=== PATIENT | male | born 1950 | race Caucasian/White ===

== ENCOUNTER 2017-06-16 14:26 | Observation (INO) | payer MEDICARE, OTHER ==
[~2017-06-16] VITALS: Ht 203.2 cm; Wt 119.6 kg
[~2017-06-16 14:26] MED LIST: ALBUTEROL2.5 MG/3 M INH; AMITRIPTYLINE100 MG PO; ATIVAN0.5 MG PO; BAYER CHEWABLE81 MG PO; BROVANA15 MCG/2 M INH; BUPROPION HCL100 M1 PO; BUSPAR5 MG PO; BUTRANS1 EAC1 TRANSDERM; CARDIZEM60 MG PO; CELEXA40 MG PO; CLEOCIN HCL150 MG PO; CYCLOBENZAPRINE10 MG PO; DEMEROL50 MG PO; DULCOLAX10 MG/SUPP RC; FIORICET TABLET1 TAB PO; FLEXERIL10 MG PO; GLUCOPHAGE1000 MG PO; HUMALOG 30100 UNITS/ SC; LANTUS INSULIN10 ML SC; LANTUS SOL100 UNIT/1 SC; LIPITOR20 MG PO; LISINOPRIL5 MG PO; MIRALAX17 GM PO; MORPHINE SULF5 MG/ML IV; MUCINEX600 MG PO; NAPROSYN500 MG PO; NOVOLOG100 U/M1 SC; PAMELOR 25 MG C25 MG PO; PLAVIX75 MG PO; PREDNISONE20 MG PO; PRILOSEC20 MG PO; PROTONIX40 MG PO; RESTORIL15 MG PO; ROXICODONE5 MG PO; SENOKOT-S TABLE1 TAB PO; TESSALON PERLE100 MG PO; VIMOVO PO; XANAX0.5 MG PO
[2017-06-16 16:02] LABS: BASOPHILS 0.1 % (0-2); EOSINOPHILS 0.9 % (0-7); HEMATOCRIT 35.1 % (42.0-54.0); HEMOGLOBIN 11.4 g/dL (13.5-17.5); IMMATURE GRANULOCYTES 0.2 % (0-5); LYMPHOCYTES 15.6 % (15-50); MCHC 32.5 g/dL (31.0-37.0); MCV 95.4 fL (80.0-100.0); MEAN PLATELET VOLUME 9.6 fL (7.4-10.4); MONOCYTES 9.1 % (2-11); NEUTROPHILS 74.1 % (40-80); PLATELET COUNT 246 10x3/uL (130-400); RBC 3.68 10x6/uL (4.20-6.10); RDW 13.6 % (11.5-14.5)
[2017-06-16 16:13] LABS: APTT 39.2 SECONDS (22.8-39.4); INR 1.02 (0.85-1.17); PROTIME 13.3 SECONDS (11.6-15.0)
[2017-06-16 16:17] LABS: ALBUMIN 3.4 g/dL (3.4-5.0); ANION GAP 11.7 mmol/L (8-16); BILIRUBIN - TOTAL 0.5 mg/dL (0.2-1.3); CARBON DIOXIDE 27.3 mmol/L (21.0-32.0); CREATININE - SERUM 1.6 mg/dL (0.6-1.3); PROTEIN - SERUM 6.9 g/dL (6.4-8.2)
[2017-06-16 17:56] LABS: APPEARANCE SLT CLOUDY (CLEAR); COLOR YELLOW (YELLOW)
[2017-06-16 17:57] LABS: BILIRUBIN NEGATIVE (NEGATIVE); GLUCOSE NEGATIVE (NEGATIVE); KETONE NEGATIVE (NEGATIVE); LEUKOCYTE ESTERASE TRACE (NEGATIVE); NITRITE NEGATIVE (NEGATIVE); PROTEIN TRACE mg/dL (NEGATIVE); UROBILINOGEN NORMAL (NORMAL)
[2017-06-16 17:58] LABS: RED CELLS - URINE RARE /hpf (0-5)
[2017-06-16 17:59] LABS: BACTERIA FEW /hpf (NONE SEEN); EPITHELIAL CELLS OCC /hpf (0-5)
[2017-06-16 20:00] VITALS: BP 118/57
--- NOTE | 2017-06-16 20:10 | NUR ---
REC FROM ER VIA WC. AMBULATED WITH CANE TO SIT ON BED. ALERT/ORIENTED X 4. DENIES PAIN OR ANY NEEDS. IV IN RT AC WITH NS INFUSING AT 150ML/HR. NEURO CHECK COMPLETED PER ORDER. ORIENTED TO ROOM AND CALL LIGHT FOR ANY NEEDS. PLACED BEDSIDE TABLE IN REACH.
[2017-06-16] MEDS ORDERED: MELATONIN10 M1 PO (22:34)
[2017-06-16] MEDS ORDERED: COLACE100 MG PO (22:48)
[2017-06-16] MEDS ORDERED: IMODIUM2 MG PO (22:50)
[2017-06-17] VITALS (7 sets, daily range): BP systolic 104–143; BP diastolic 45–70; Ht 203.2 cm; Wt 119.6 kg
--- NOTE | 2017-06-17 00:30 | NUR ---
REQUESTED ASSISTANCE TO BATHROOM TO VOID. NO OTHER NEEDS VOICED.
--- NOTE | 2017-06-17 04:30 | NUR ---
RESTING WITH EYES CLOSED. RR 18 EVEN U/L. CL IN REACH.
--- NOTE | 2017-06-17 07:38 | NUR ---
AM ROUNDS- PT IN BED, DENIES ANY NEEDS AT THIS TIME. INFORMED PT ABOUT NPO STATUS DO TO CTA SCHEDULED FOR TODAY. BED LOW AND WHEELS LOCKED, BEDSIDE RAILS X2, CALL LIGHT IN REACH, NAD NOTED, WILL CONTINUE TO MONITOR.
[2017-06-17 08:27] LABS: ANION GAP 13.5 mmol/L (8-16); BILIRUBIN - TOTAL 0.47 mg/dL (0.2-1.3); CALCIUM 8.5 mg/dL (8.5-10.1); CARBON DIOXIDE 24.9 mmol/L (21.0-32.0); CREATININE - SERUM 1.3 mg/dL (0.6-1.3); POTASSIUM - SERUM 4.4 mmol/L (3.5-5.1); PROTEIN - SERUM 6.3 g/dL (6.4-8.2)
[2017-06-17 08:45] LABS: HEMOGLOBIN 10.5 g/dL (13.5-17.5); MCH 31.2 pg (26.0-34.0); MCHC 32.8 g/dL (31.0-37.0); MEAN PLATELET VOLUME 10.1 fL (7.4-10.4); RBC 3.37 10x6/uL (4.20-6.10); RDW 13.6 % (11.5-14.5); WBC 13.6 10x3/uL (4.8-10.8)
--- NOTE | 2017-06-17 11:11 | NUR ---
PAGED LIANA UP, WAITING ON HER TO CALL BACK.
--- NOTE | 2017-06-17 19:10 | NUR ---
RECEIVED REPORT, ASSUMED CARE OF PATIENT. SITTING IN RECLINER. DENIES PAIN OR ANY NEEDS. IV IN R AC INTACT SL. TELEMETRY SHOWS 92 SR. REFUSES SCD'S ON. ORIENTED TO CL FOR ANY NEEDS.
--- NOTE | 2017-06-17 20:55 | NUR ---
ADMIN SCHED MEDS AND HOME MEDS. NO OTHER NEEDS VOICED.
--- NOTE | 2017-06-17 21:30 | NUR ---
AMBULATING IN HALLWAY WITH STEADY GAIT. ASKED DIRECTIONS TO [place].
[2017-06-18] VITALS: BP 125/65
[2017-06-18 06:17] LABS: BASOPHILS 0.3 % (0-2); EOSINOPHILS 3.6 % (0-7); HEMATOCRIT 32.3 % (42.0-54.0); HEMOGLOBIN 10.7 g/dL (13.5-17.5); IMMATURE GRANULOCYTES 0.3 % (0-5); LYMPHOCYTES 28.6 % (15-50); MCH 31.1 pg (26.0-34.0); MCHC 33.1 g/dL (31.0-37.0); MCV 93.9 fL (80.0-100.0); MEAN PLATELET VOLUME 9.7 fL (7.4-10.4); MONOCYTES 10.7 % (2-11); NEUTROPHILS 56.5 % (40-80); PLATELET COUNT 246 10x3/uL (130-400); RBC 3.44 10x6/uL (4.20-6.10); RDW 13.4 % (11.5-14.5)
[2017-06-18 06:18] LABS: ANION GAP 13.2 mmol/L (8-16); CALCIUM 8.9 mg/dL (8.5-10.1); CARBON DIOXIDE 26.4 mmol/L (21.0-32.0); CREATININE - SERUM 1.1 mg/dL (0.6-1.3); POTASSIUM - SERUM 4.6 mmol/L (3.5-5.1)
[2017-06-18 06:20] LABS: WBC 10.1 10x3/uL (4.8-10.8)
--- NOTE | 2017-06-18 07:20 | NUR ---
AM ROUNDS- PT UP TO CHAIR. DENIES ANY NEEDS AT THIS TIME. RESP EVEN AND UNLABORED, RT AC SL. CALL LIGHT IN REACH, NAD NOTED, WILL CONTINUE TO MONITOR.
[2017-06-18 08:00] VITALS: BP 114/61
--- NOTE | 2017-06-18 08:31 | NUR ---
AM MEDS GIVEN AT THIS TIME. PT UP TO CHAIR, DENIES ANY NEEDS AT THIS TIME. CALL LIGHT IN REACH, NAD NOTED, WILL CONTINUE TO MONITOR.
--- NOTE | 2017-06-18 11:45 | NUR ---
PT CHECKED OWN BLOOD SUGAR AND IT WAS 144, NO COVERAGE NEEDED PER S/S. PT UP TO CHAIR, DENIES ANY NEEDS AT THIS TIME. CALL LIGHT IN REACH, AT BEDSIDE, NAD NOTED, WILL CONTINUE TO MONITOR.
[2017-06-18 12:00] VITALS: BP 118/61
--- NOTE | 2017-06-18 16:00 | NUR ---
PROVIDED VERBAL AND WRITTEN D/C INSTRUCTIONS TO PT AND AT BEDSIDE. BOTH VERBALIZED UNDERSTANDING REGARING INSTRUCTIONS. D/C RT AC IV, TIP INTACT. PT WILL NOTIFY WHEN READY FOR WHEELCHAIR. NAD NOTED, WILL CONTINUE TO MONITOR.
--- NOTE | 2017-06-18 16:14 | NUR ---
PT LEFT UNIT VIA WHEELCHAIR, ACCOMPANIED BY , NAD NOTED.
== END 2017-06-18 16:11 | disposition home or self-care (01) ==
LOC: D.ER 14:26 → OBSVTIME 18:55 → D.M2 18:55
PROVIDERS: Internal Medicine Cardiovascular Disease; Physician Assistant Medical; ADMIT Family Medicine
DX: I65.23 Occlusion and stenosis of bilateral carotid arteries (principal); E11.9 Type 2 diabetes mellitus without complications; Z79.4 Long term (current) use of insulin; G47.33 Obstructive sleep apnea (adult) (pediatric); J44.9 Chronic obstructive pulmonary disease, unspecified; I10 Essential (primary) hypertension; Z86.73 Personal history of transient ischemic attack (TIA), and cerebral infarction without residual deficits; Z72.0 Tobacco use

== ENCOUNTER 2017-07-05 05:06 | Inpatient (IN) | payer MEDICARE, OTHER ==
[~2017-07-05] VITALS: Ht 203.2 cm; Wt 119.5 kg
[~2017-07-05 05:06] MED LIST changes: -BUTRANS1 EAC1 TRANSDERM; +BUTRANS1 EAC3 TRANSDERM; +CLARITIN 10 MG10 MG PO; +COLACE100 MG PO; +FLUTICASONE PRO16 GM NASAL; +IMODIUM2 MG PO; +IPRAT-ALBUT 0.5-3 ML UPD; +MELATONIN10 M1 PO; +MOVANTIK25 MG PO; +PENNSAID 2% TOPICAL; +SPIRIVA RESPIMAT4 G1 INH; +STOOL SOFTENER100 M1 PO; +TART CHERRY EXTRACT PO
[2017-07-05 11:32] VITALS: Ht 203.2 cm; Wt 119.5 kg
[2017-07-06] MEDS ORDERED: ULTRAM50 MG PO (11:51)
[2017-07-06 12:00] VITALS: BP 106/50
== END 2017-07-06 13:07 | disposition home health service (06) | DRG 38 ==
LOC: D.CVICU 05:06 → D.SDCHOLD 05:06 → D.CVICU 10:19
PROVIDERS: ADMIT Internal Medicine Cardiovascular Disease
PROC: 03UL0JZ Supplement Left Internal Carotid Artery with Synthetic Substitute, Open Approach (ICD-10-PCS; 2017-07-05)
PROC: 03CL0ZZ Extirpation of Matter from Left Internal Carotid Artery, Open Approach (ICD-10-PCS; principal; 2017-07-05 07:30)
DX: I65.23 Occlusion and stenosis of bilateral carotid arteries (principal); I69.354 Hemiplegia and hemiparesis following cerebral infarction affecting left non-dominant side; G47.33 Obstructive sleep apnea (adult) (pediatric); E11.9 Type 2 diabetes mellitus without complications; J44.9 Chronic obstructive pulmonary disease, unspecified; I10 Essential (primary) hypertension; K21.9 Gastro-esophageal reflux disease without esophagitis

== ENCOUNTER → 2017-11-08 09:56 | Outpatient (CLI) | payer MEDICARE, OTHER ==
[2017-07-05 11:32] VITALS: BMI 28.9
[~2017-11-08 09:56] MED LIST changes: +ULTRAM50 MG PO
== END | disposition home or self-care (01) ==
LOC: D.CT 09:56
DX: I73.9 Peripheral vascular disease, unspecified (principal)

== ENCOUNTER 2017-12-13 06:28 | Outpatient (CLI) | payer MEDICARE, OTHER ==
--- NOTE | ~2017-12-13 | HEMODYNAMI ---
PATIENT:DEANA DUCKWORTH MEDICAL RECORD: [id number] : 48 LOCATION:[facility] ADMISSION DATE: 12/13/17 Generatedon:12/13/201711:27 Patient name: DEANA DUCKWORTH Patient #: [id number] SSN: : 1950 Date of study: 12/13/2017 Page: Of Hemodynamic Procedure Report Patient Data Patient Demographics Procedure consent was obtained First Name: DEANA Gender: Male Last Name: DONITA : 1950 [facility] Initial: YA Age: 67 year(s) Patient #: [id number] Race: Additional ID: [id number] Contact details [address]: [address] [place] [address] State: [place] City: [place] Zip code: [address] Past Medical History History of disease Date Diagnosis Comments CAD Allergies Allergen Reaction Date Comments Reported Penicillins 07/30/2015 Other allergy 07/30/2015 hydromorphone Other allergy 10/15/2016 dilaudid,pcn,baclofen Admission Admission Data Admission Date: 12/13/2017 Admission Time: 6:28 Procedure Procedure Types Cath Procedure Peripheral Cath Diagnostic Procedure Cath Peripheral Abd/Extremity Extremities Bilat Lower Extremity Procedure Description Procedure Date Procedure Date: 12/13/2017 Procedure Start Time: 10:30 Procedure Staff Name Function Walter Szymanski MD Performing Physician Mimi Mancilla RT Rotor Casting Machine Operator Mimi Mancilla RT Monitor Alessandra Ahn RN Nurse Tanner Orellana Nurse Corey Rodriguez RT Scrub Procedure Data Cath Procedure Fluoroscopy Diagnostic fluoroscopy Total fluoroscopy Time: 5.9 time: 5.9 min min Diagnostic fluoroscopy Total fluoroscopy dose: 878 dose: 878 mGy mGy Contrast Material Contrast Material Type Amount (ml) Isovue 300 75 Entry Location Entry Primary Successful Side Size Upsize Upsize Entry Closure Succes sful Closure Location (Fr) 1 (Fr) 2 (Fr) Remarks Device Remarks Femoral Right 5 Fr artery Diagnostic catheters Device Type Used For End Catheter Placement Merit ULTRA BOLUS FLUSH 5Fr 65CM catheter ([id number]) Procedure Medications Medication Administration Route Dosage Fentanyl I.V. 50 mcg Versed I.V. 1 mg Fentanyl I.V. 50 mcg Versed I.V. 1 mg Versed I.V. 1 mg Fentanyl I.V. 50 mcg Versed I.V. 1 mg Fentanyl I.V. 50 mcg Nitroglycerin IC/IA I.A. 200 mcg Hemodynamics Rest Heart Rate: 89 (bpm) Pressure Samples Time Site Value (mmHg) Purpose Heart Use Rate(bpm) 10:59 LCF 87/46(64) Snapshot 90 11:00 AO 133/46(76) Snapshot 89 11:00 AO 131/47(77) Snapshot 91 11:01 AO 134/48(80) Snapshot 92 Snapshots Pre Cath Intra NCS Post Cath Vital Signs Time Heart Resp SPO2 etCO2 NIBP (mmHg) Rhythm Pain Sedation Rate (ipm) (%) (mmHg) Status Level (bpm) 10:20:34 88 20 100 29.5 151/74(107) NSR 0 (11) 10(A) , No pain 10:24:54 91 16 100 32.5 158/74(105) NSR 0 (11) 10(A) , No pain 10:29:12 88 17 100 39.3 153/70(99) NSR 0 (11) 8(A) , No pain 10:33:31 89 21 99 36.3 157/71(107) NSR 0 (11) 8(A) , No pain 10:37:53 86 12 99 35.5 164/76(119) NSR 0 (11) 8(A) , No pain 10:42:15 85 12 98 41.6 143/67(106) NSR 0 (11) 8(A) , No pain 10:46:35 86 12 99 37.8 144/64(99) NSR 0 (11) 8(A) , No pain 10:50:55 88 13 99 28 141/63(91) NSR 0 (11) 8(A) , No pain 10:55:11 88 11 98 28.7 137/67(94) NSR 0 (11) 8(A) , No pain 10:59:29 91 11 97 31.7 135/63(80) NSR 0 (11) 8(A) , No pain 11:03:48 90 11 98 27.9 147/61(90) NSR 0 (11) 8(A) , No pain 11:08:03 87 12 97 25.7 137/70(104) NSR 0 (11) 8(A) , No pain 11:12:19 91 13 99 18.9 135/57(81) NSR 0 (11) 8(A) , No pain 11:16:37 91 12 97 25.7 132/58(75) NSR 0 (11) 8(A) , No pain 11:20:54 90 10 97 32.5 131/62(90) NSR 0 (11) 8(A) , No pain 11:25:10 89 11 98 20.4 135/61(99) NSR 0 (11) 8(A) , No pain Medications Time Medication Route Dose Verified Delivered Reason Notes Effective ness by by 10:24:35 Fentanyl I.V. 50 Walter Alessandra for mcg Jimy Szymanski RN sedation 10:24:45 Versed I.V. 1 mg Walter Aparicio for Jimy Szymanski RN sedation 10:41:46 Fentanyl I.V. 50 Walter Alessandra for mcg Jimy Szymanski RN sedation 10:41:53 Versed I.V. 1 mg Walter Alessandra for Jimy Szymanski RN sedation 10:50:58 Versed I.V. 1 mg Walter Alessandra for Jimy Szymanski RN sedation 10:51:07 Fentanyl I.V. 50 Walter Alessandra for Jimy Ken RN sedation 11:09:13 Versed I.V. 1 mg Walter Aparicio for Jimy Szymanski RN sedation 11:09:20 Fentanyl I.V. 50 Walter Alessandra for mcg Jimy Szymanski RN sedation 11:12:00 Nitroglycerin I.A. 200 Walter Walter IC/IA Stephon Ken MD MD Procedure Log Time Note 8:35:05 Use device set IR Diagnostic 9:01:21 Time tracking: Regular hours 9:24:45 Plan of Care:Hemodynamics will remain stable., Cardiac rhythm will remain stable., Comfort level will be maintained., Respiratory function will remain adequate., Patient/ family verbilizes understanding of procedure., Procedure tolerated without complication., Recovers from procedure without complications.. 9:24:52 Patient received from Outpatients to IR Alert and oriented. Tansferred to table in Supine position. 9:25:03 Signed procedure consent form obtained from patient. 9:25:17 H&P Date Dictated: 12/13/2017 Within 30 days and on chart.. 9:25:20 Pre-procedure instructions explained to patient. 9:25:21 Pre-op teaching completed and patient verbalized understanding. 9:25:23 Family in waiting room. 9:25:26 Patient NPO since Midnight. 9:26:01 Is the patient allergic to Iodine/contrast media? No. 9:26:03 Is patient on blood thinner?Yes 9:26:09 ACC The patient was administered the following blood thiners within the last 24 hours: ACCAspirin, ACCPlavix 9:26:12 Patient diabetic? Yes. 9:26:14 If diabetic: On Metformin? Yes 9:26:37 If on Metformin: Last Dose? 12/12/2017 9:26:41 - 9:26:44 ----Pre-sedation anethsthesia assessment.---- 9:26:46 Previous problem with sedation/anesthesia? No ? 9:26:49 Snore? Yes 9:26:51 Sleep apnea? No 9:26:53 Deviated septum? No 9:26:55 Opens mouth fully? Yes 9:26:57 Sticks out tongue? Yes 9:27:02 Airway obstruction? Yes asthma 9:27:11 Dentures? Yes in secure 9:27:13 - 9:27:19 Pre procedure: right dorsailis pedis pulse Doppler 9:27:24 Pre procedure: left dorsailis pedis pulse Doppler 9::28 Pre procedure: right posterior tibial pulse Doppler 9::32 Pre procedure: left posterior tibial pulse Doppler 10::22 ECG and BP/O2 sat monitors applied to patient. 10::23 Vital chart was started 10::35 Full Disclosure recording started 10::35 - 10::05 Physician arrived 10::56 Baseline sample Acquired. 10:23:00 - 10:23:07 --------ALL STOP TIME OUT------ 10::08 Final Timeout: patient, procedure, and site verified with staff and physician. All members of the team are in agreement. 10:23:36 Sedation plan: IV Moderate Sedation Medication:Versed, Fentanyl 10:23:42 Procedure started. 10:24:35 Fentanyl 50 mcg I.V. was administered by Alessandra Ahn RN; for sedation ; 10::45 Versed 1 mg I.V. was administered by Alessandra Ahn RN; for sedation; 10:27:01 STOPCOCK 3-Way Large Bore ([id number]) opened to sterile field. 10:27:02 TUBING Contrast Injection High Pressure ([id number]) opened to sterile field. 10:27:04 CHOICE PT Extra Support J 300cm guide wire ([id number]) opened to steril e field. 10:27:05 SHEATH 5FR [place] (LSQ129) opened to sterile field. 10:27:06 DOC .035 wire (Y53408) opened to sterile field. 10:27:07 SHEATH 6FR Destination (RSR01) opened to sterile field. 10:27:08 Micropuncture VSI 4FR kit opened to sterile field. 10:27:09 GARG 260 wire (N49212) opened to sterile field. 10:27:11 Sterile Angiographic Pack opened to sterile field. 10:27:13 Bag Decanter (2002S) opened to sterile field. 10:27:14 ACIST Manifold (18686) opened to sterile field. 10:27:15 ACIST Hand Control (29973) opened to sterile field. 10:27:16 ACIST Syringe (48789) opened to sterile field. 10:27:19 A [employer] ULTRA BOLUS FLUSH 5Fr 65CM catheter ([id number]) was advanced over the wire and used for . 10:30:40 Local anesthetic to right femoral artery with Lidocaine 1% by Walter Szymanski MD.INITIAL ACCESS ONLY 10:30:43 Arterial access obtained using ultrasound guidance. 10:30:56 A 5 Fr sheath was inserted into the Right Femoral artery 10:41:46 Fentanyl 50 mcg I.V. was administered by Alessandra Ahn RN; for sedation ; 10:41:53 Versed 1 mg I.V. was administered by Alessandra Ahn RN; for sedation; 10:43:48 GLIDE WIRE ANGLE 180cm (WG0760) opened to sterile field. 10:43:49 TORQUE DEVICE PLASTIC .038 ( TD01) opened to sterile field. 10:50:56 GLIDE WIRE ANGLE 260cm (BC5321) opened to sterile field. 10:50:58 Versed 1 mg I.V. was administered by Alessandra Ahn RN; for sedation; 10:51:07 Fentanyl 50 mcg I.V. was administered by Alessandra Ahn RN; for sedation ; 10:51:56 GLIDE CATHETER 5FR ANGLED 100cm (CG508) opened to sterile field. 10:58:54 Zero performed for pressure channel P1 10:59:24 Zero performed for pressure channel P1 10:59:38 Zero performed for pressure channel P1 11:09:13 Versed 1 mg I.V. was administered by Alessandra Ahn RN; for sedation; 11:09:20 Fentanyl 50 mcg I.V. was administered by Alessandra Ahn RN; for sedation ; 11:12:00 Nitroglycerin IC/IA 200 mcg I.A. was administered by Walter Szymanski MD; ; 11:16:03 EXOSEAL 5Fr (EX500) opened to sterile field. 11:20:46 Procedure ended.(Physican Out) 11:22:22 Fluoroscopy time 05.90 minutes. 11:22:28 Fluoroscopy dose: 878 mGy 11:22:28 Flurop Dose total: 878 11:22:33 Contrast amount:Isovue 300 75ml. 11:23:04 Procedure and supply charges have been captured, reviewed, submitted an d are correct. 11:27:26 Vital chart was stopped Device Usage Item Name Manufacture Quantity Catalog Number Hospital Part Current Va nimal Lot# / Charge Number Stock Stock Serial# Code STOPCOCK 3-Way [employer] 1 [id number] 3620 [id number] 5 [id number] Large Bore ([id number]) TUBING Merit 1 [id number] 447881 233687 936175 5 Contrast Medical Injection High Pressure (QEU249E) CHOICE PT [place] 1 [id number] 398411 122516 426041 5 Extra Support Scientific J 300cm guide wire ([id number]) SHEATH 5FR Terumo 1 PIR825 199649 614663 630445 40 [place] (QSM286) DOC .035 wire [employer] 1 G64366 231283 548889 5 [id number] (G00777) SHEATH 6FR Terumo 1 RSR01 640469 32115 523602 5 Destination (RSR01) Micropuncture VSI VASCULAR 1 7266V 801696 594882 5 VSI 4FR kit SOLUTIONS GARG 260 wire [employer] 1 F46731 628529 770542 5 7710780 (Y30994) Sterile Cardinal 1 [id number] 363853 994375 5 Angiographic Health Pack Bag Decanter Microtek 1 634732 07152 917493 5 () Medical Inc. ACIST Manifold Acist 1 46939 935909 529845 111161 5 (06479) Medical Systems Inc ACIST Hand Acist 1 22804 888414 164891 756084 5 Control Medical (59907) Systems Inc ACIST Syringe Acist 1 34800 342545 324700 648912 20 (60193) Medical Systems Inc Merit ULTRA Merit 1 [id number] 287590 791647 5 BOLUS FLUSH Medical 5Fr 65CM catheter ([id number]) GLIDE WIRE Terumo 1 HY2480 399279 839436 967840 5 ANGLE 180cm (MO5431) TORQUE DEVICE [place] 1 TD01 789479 341654 468196 5 PLASTIC .038 ( Scientific TD01) GLIDE WIRE Terumo 1 GN0049 442450 413874 359312 5 ANGLE 260cm (EM4197) GLIDE CATHETER Terumo 1 CG508 250823 36910 954754 4 5FR ANGLED 100cm (CG508) EXOSEAL 5Fr Cardinal 1 EX500 532579 912446 086104 10 [id number] (EX500) Health Signature Audit [place] Stage Time Signature Unsigned Intra-Procedure 12/13/2017 Mimi Mancilla 11:27:23 AM RT(R) Signatures Monitor : Mimi Mancilla RT Signature : Date : Time : [address] [address]
[2017-12-13 08:33] VITALS: BP 134/64; BMI 29.7
[2017-12-13 08:36] LABS: APTT 22.8 SECONDS (22.8-39.4); PROTIME 12.8 SECONDS (11.6-15.0)
[2017-12-13 08:37] LABS: ANION GAP 12.9 mmol/L (8-16); CALCIUM 9.1 mg/dL (8.5-10.1); CREATININE - SERUM 1.5 mg/dL (0.6-1.3); POTASSIUM - SERUM 4.9 mmol/L (3.5-5.1)
[2017-12-13 08:40] LABS: BASOPHILS 0.2 % (0-2); EOSINOPHILS 0.9 % (0-7); HEMATOCRIT 34.1 % (42.0-54.0); HEMOGLOBIN 10.9 g/dL (13.5-17.5); IMMATURE GRANULOCYTES 0.2 % (0-5); LYMPHOCYTES 23.8 % (15-50); MCH 30.1 pg (26.0-34.0); MCV 94.2 fL (80.0-100.0); MEAN PLATELET VOLUME 9.6 fL (7.4-10.4); MONOCYTES 8.7 % (2-11); NEUTROPHILS 66.2 % (40-80); PLATELET COUNT 275 10x3/uL (130-400); RBC 3.62 10x6/uL (4.20-6.10); RDW 13.4 % (11.5-14.5); WBC 9.5 10x3/uL (4.8-10.8)
== END 2017-12-13 14:45 | disposition home or self-care (01) ==
LOC: D.OPS 06:28 → D.RAD 09:00 → D.OPS 09:00
PROVIDERS: General Practice
DX: I70.212 Atherosclerosis of native arteries of extremities with intermittent claudication, left leg (principal); N28.9 Disorder of kidney and ureter, unspecified; Z01.812 Encounter for preprocedural laboratory examination

== ENCOUNTER 2017-12-21 08:48 | Outpatient (CLI) | payer MEDICARE, OTHER ==
[~2017-12-21] VITALS: Ht 203.2 cm; Wt 120.5 kg
--- NOTE | ~2017-12-21 | HEMODYNAMI ---
PATIENT:DEANA DUCKWORTH MEDICAL RECORD: [id number] : 48 LOCATION:[facility] ADMISSION DATE: 12/21/17 Generatedon:12/21/201713:07 Patient name: DEANA DUCKWORTH Patient #: [id number] SSN: : 1950 Date of study: 12/21/2017 Page: Of Hemodynamic Procedure Report Patient Data Patient Demographics Procedure consent was obtained First Name: DEANA Gender: Male Last Name: DONITA : 1950 [facility] Initial: YA Age: 67 year(s) Patient #: [id number] Race: Additional ID: [id number] Contact details [address]: [address] [place] [address] State: [place] City: [place] Zip code: [address] Past Medical History History of disease Date Diagnosis Comments CAD Allergies Allergen Reaction Date Comments Reported Penicillins 07/30/2015 Other allergy 07/30/2015 hydromorphone Other allergy 10/15/2016 dilaudid,pcn,baclofen Admission Admission Data Admission Date: 12/21/2017 Admission Time: 8:48 Procedure Procedure Types Cath Procedure Peripheral Cath Diagnostic Procedure Abd/Extremity Aortagram Procedure Description Procedure Date Procedure Date: 12/21/2017 Procedure Start Time: 11:40 Procedure Staff Name Function Walter Szymanski MD Performing Physician Corey Rodriguez RT Monitor Aisha Armas RT Scrub Jimy Aparicio RN Nurse Tanner Orellana Nurse Procedure Data Cath Procedure Fluoroscopy Diagnostic fluoroscopy Total fluoroscopy Time: 5.6 time: 5.6 min min Diagnostic fluoroscopy Total fluoroscopy dose: 905 dose: 905 mGy mGy Contrast Material Contrast Material Type Amount (ml) Isovue 300 90 Entry Location Entry Primary Successful Side Size Upsize Upsize Entry Closure Succes sful Closure Location (Fr) 1 (Fr) 2 (Fr) Remarks Device Remarks Femoral Left 5 Fr 7 Fr Exoseal artery Short Femoral Right 7 Fr Exoseal artery Short Procedure Medications Medication Administration Route Dosage Fentanyl I.V. 50 mcg Versed I.V. 1 mg Fentanyl I.V. 50 mcg Versed I.V. 1 mg Versed I.V. 1 mg Fentanyl I.V. 50 mcg Versed I.V. 1 mg Fentanyl I.V. 50 mcg Heparin Bolus I.V. 5000 units Versed I.V. 1 mg Fentanyl I.V. 50 mcg Versed I.V. 1 mg Fentanyl I.V. 50 mcg Hemodynamics Rest Heart Rate: 87 (bpm) Snapshots Pre Cath Intra NCS Post Cath Vital Signs Time Heart Resp SPO2 etCO2 NIBP (mmHg) Rhythm Pain Status Sedation Rate (ipm) (%) (mmHg) Level (bpm) 11:13:07 87 13 98 34.7 139/71(107) NSR 2 (11) , 10(A) Uncomfortable 11:17:28 87 13 98 28.7 142/73(100) NSR 2 (11) , 10(A) Uncomfortable 11:21:49 84 12 98 27.9 139/69(108) NSR 2 (11) , 10(A) Uncomfortable 11:26:10 84 14 98 37.8 143/73(100) NSR 2 (11) , 10(A) Uncomfortable 11:30:30 84 13 98 17.3 146/72(104) NSR 2 (11) , 10(A) Uncomfortable 11:34:50 83 13 98 24.9 142/72(109) NSR 2 (11) , 10(A) Uncomfortable 11:39:06 83 13 99 42.3 146/75(105) NSR 1 (11) , Very 10(A) mild 11:43:26 82 14 98 38.5 134/67(100) NSR 1 (11) , Very 10(A) mild 11:47:44 81 13 98 38.5 140/63(103) NSR 1 (11) , Very 8(A) mild 11:52:00 83 13 96 15.8 134/75(95) NSR 0 (11) , No 8(A) pain 11:56:18 82 10 95 39.3 138/67(100) NSR 0 (11) , No 8(A) pain 12:00:34 82 12 97 18.1 144/67(99) NSR 0 (11) , No 8(A) pain 12:04:56 81 16 98 38.5 134/59(92) NSR 0 (11) , No 8(A) pain 12:09:16 80 11 96 25.7 131/60(86) NSR 0 (11) , No 8(A) pain 12:13:34 80 10 97 0 131/64(93) NSR 0 (11) , No 8(A) pain 12:17:52 79 10 98 10.5 144/63(97) NSR 0 (11) , No 8(A) pain 12:22:08 79 10 97 24.9 123/63(87) NSR 0 (11) , No 8(A) pain 12:26:24 80 10 98 38.5 118/63(72) NSR 0 (11) , No 8(A) pain 12:30:36 79 12 96 25.6 126/64(104) NSR 0 (11) , No 8(A) pain 12:34:54 81 11 95 18.1 139/59(100) NSR 0 (11) , No 8(A) pain 12:39:53 82 13 94 27.2 Measuring NSR 0 (11) , No 8(A) pain 12:40:02 82 13 92 30.9 130/71(91) NSR 0 (11) , No 8(A) pain 12:44:14 81 12 92 31.7 135/63(93) NSR 0 (11) , No 8(A) pain 12:48:29 80 10 98 12 131/64(96) NSR 0 (11) , No 8(A) pain 12:52:39 81 11 98 8.3 137/84(100) NSR 0 (11) , No 8(A) pain 12:56:55 80 11 96 21.1 143/73(104) NSR 0 (11) , No 8(A) pain 13:01:13 78 13 98 40.8 136/61(99) NSR 0 (11) , No 8(A) pain 13:05:34 78 11 95 39.2 129/65(97) NSR 0 (11) , No 8(A) pain Medications Time Medication Route Dose Verified Delivered Reason Notes Effectiv eness by by 11:38:52 Fentanyl I.V. 50 Walter Jimy for mcg Burda, Alessandra RN sedation MD 11:39:03 Versed I.V. 1 mg Walter Jimy for awake Burda, Alessandra RN sedation alert, MD supine on table. sedation begun 11:45:18 Fentanyl I.V. 50 Walter Jimy for mcg Burda, Alessandra RN sedation MD 11:45:31 Versed I.V. 1 mg Walter Jimy for eyes Burda, Alessandra RN sedation closed MD 11:50:03 Versed I.V. 1 mg Walter Jimy for Burda, Alessandra RN sedation MD 11:50:18 Fentanyl I.V. 50 Walter Jimy for mcg Burda, Alessandra RN sedation MD 12:06:29 Versed I.V. 1 mg Walter Jimy for Burda, Alessandra RN sedation 12:06:37 Fentanyl I.V. 50 Walter Jimy for mcg Burda, Alessandra RN sedation MD 12:27:14 Heparin I.V. 5000 Walter Jimy used for Bolus units Burda, Alessandra human resources assistant 12:28:44 Versed I.V. 1 mg Walter Jimy for Burda, Alessandra RN sedation 12:28:53 Fentanyl I.V. 50 Walter Jimy for mcg Burda, Alessandra RN sedation 12:50:02 Versed I.V. 1 mg Walter Jimy for Burda, Alessandra RN sedation 12:50:13 Fentanyl I.V. 50 Walter Jimy for mcg Burda, Alessandra RN sedation Procedure Log Time Note 10:41:36 Corey Rodriguez RT (R) (CV) sent for patient. Start room use. 10:41:47 Time tracking: Regular hours 10:41:54 Plan of Care:Hemodynamics will remain stable., Cardiac rhythm will remain stable., Comfort level will be maintained., Respiratory function will remain adequate., Patient/ family verbilizes understanding of procedure., Procedure tolerated without complication., Recovers from procedure without complications.. 10:41:57 Use device set IR Diagnostic 10:41:59 Sterile Angiographic Pack opened to sterile field. 10:41:59 ACIST Manifold (55518) opened to sterile field. 10:42:00 Bag Decanter (2001S) opened to sterile field. 10:42:01 ACIST Syringe (35910) opened to sterile field. 10:42:02 ACIST Hand Control (47983) opened to sterile field. 10:42:10 Patient received from Outpatients to IR Alert and oriented. Tansferred to table in Supine position. 10:42:11 Correct patient and procedure confirmed by team. 10:42:13 Signed procedure consent form obtained from patient. 10:42:14 ECG and BP/O2 sat monitors applied to patient. 10:42:15 Full Disclosure recording started 10:42:16 - 10:42:19 H&P Date Dictated: 12/21/2017 H&P Addendum completed by physician on day of procedure. (MUST COMPLETE FOR ALL OUTPATIENTS). 10:42:20 Pre-procedure instructions explained to patient. 10:42:20 Pre-op teaching completed and patient verbalized understanding. 10:42:25 Family in waiting room. 10:42:30 Patient NPO since Midnight. 10:42:43 Is the patient allergic to Iodine/contrast media? No. 10:42:52 Is patient on blood thinner?Yes 10:42:57 ACC The patient was administered the following blood thiners within the last 24 hours: ACCAspirin, ACCPlavix 10:42:59 Patient diabetic? Yes. 10:43:00 If diabetic: On Metformin? No 10:43:01 - 10:43:02 ----Pre-sedation anethsthesia assessment.---- 10:43:10 Previous problem with sedation/anesthesia? No ? 10:43:11 Snore? Yes 10:43:13 Sleep apnea? No 10:43:15 Deviated septum? No 10:43:16 Opens mouth fully? Yes 10:43:17 Sticks out tongue? Yes 10:43:25 Airway obstruction? Yes asthma 10:43:37 Dentures? Yes in 10:43:41 Pre procedure: right dorsailis pedis pulse Doppler 10:43:44 Pre procedure: left dorsailis pedis pulse Doppler 10:43:47 Pre procedure: right posterior tibial pulse Doppler 10:43:56 Pre procedure: left posterior tibial pulse Doppler 10:44:00 Patient pain scale 5/10 ?. 10:44:10 IV patent on arrival in right hand with 0.9% NaCl at [facility]. 10:44:17 Bilateral groins area was prepped with chlora-prep and draped in steril e fashion 10:44:20 Sharps counted by scrub and verified by R.N. 10:44:22 Alarms reviewed by R. N. 11:11:57 Vital chart was started 11:11:58 Baseline sample Acquired. 11:37:12 Physician arrived 11:37:13 --------ALL STOP TIME OUT------ 11:37:13 Final Timeout: patient, procedure, and site verified with staff and physician. All members of the team are in agreement. 11:37:16 Bilateral groins site verified by team. 11:37:20 Sedation plan: IV Moderate Sedation Medication:Versed, Fentanyl 11:38:52 Fentanyl 50 mcg I.V. was administered by Jimy Aparicio RN; for sedation ; 11:39:03 Versed 1 mg I.V. was administered by Jimy Aparicio RN; for sedation; awake alert, supine on table. sedation begun 11:40:06 Procedure started. 11:40:15 Local anesthetic to left femerol artery with Lidocaine 1% by Walter Szymanski MD.INITIAL ACCESS ONLY 11:40:26 DOC .035 wire (B84269) opened to sterile field. 11:40:26 TUBING Contrast Injection High Pressure (PHR097X) opened to sterile field. 11:40:27 Micropuncture VSI 4FR kit opened to sterile field. 11:40:28 SHEATH 5FR Trego (HTK010) opened to sterile field. 11:40:47 A 5 Fr sheath was inserted into the Left Femoral artery 11:42:10 GARG 260 wire (T90678) opened to sterile field. 11:42:10 GARG 260 wire (Y92695) opened to sterile field. 11:45:18 Fentanyl 50 mcg I.V. was administered by Jimy Aparicio RN; for sedation ; 11:45:31 Versed 1 mg I.V. was administered by Jimy Aparicio RN; for sedation; eyes closed 11:48:57 Angiodynamics Omniflush 5Fr 65cm (88454183) opened to sterile field. 11:50:03 Versed 1 mg I.V. was administered by Jimy Aparicio RN; for sedation; 11:50:18 Fentanyl 50 mcg I.V. was administered by Jimy Aparicio RN; for sedation ; 11:59:37 Cordis 7Fr BRITE TIP 11cm sheath opened to sterile field. 11:59:37 Cordis 7Fr BRITE TIP 11cm sheath opened to sterile field. 11:59:49 Sheath upsized to a 7 Fr Short. 12:03:48 GLIDE CATHETER 5FR ANGLED 65cm (CG507) opened to sterile field. 12:06:29 Versed 1 mg I.V. was administered by Jimy Aparicio RN; for sedation; 12:06:30 Local anesthetic to right femoral artery with Lidocaine 1% by Walter Szymanski MD.ADDITIONAL ACCESS 12:06:37 Fentanyl 50 mcg I.V. was administered by Jimy Aparicio RN; for sedation ; 12:06:42 A 7 Fr Short sheath was inserted into the Right Femoral artery 12:24:09 SMART 12 X 40 X 80 stent ([id number]) was deployed across Undefined1 . 12:25:56 SMART 12 X 40 X 80 stent ([id number]) was deployed across Undefined1 . 12:27:14 Heparin Bolus 5000 units I.V. was administered by Jimy Aparicio RN; use d for procedure; 12:28:44 Versed 1 mg I.V. was administered by Jimy Aparicio RN; for sedation; 12:28:53 Fentanyl 50 mcg I.V. was administered by Jimy Aparicio RN; for sedation ; 12:37:33 Inflation number: 1 A POWERFLEX PRO 8.0 x 40 x 80cm balloon ([id number]) was prepped and advanced across the Undefined1, then inflated 12:37:38 Inflation number: 2 A POWERFLEX PRO 8.0 x 40 x 80cm balloon ([id number]) was prepped and advanced across the Undefined1, then inflated 12:38:36 INFLATOR BasixTOUCH (TC4857) opened to sterile field. 12:38:36 INFLATOR BasixTOUCH (LP2265) opened to sterile field. 12:47:08 EXOSEAL 7Fr (EX700) opened to sterile field. 12:47:09 EXOSEAL 7Fr (EX700) opened to sterile field. 12:47:30 Sheath removed intact; hemostasis achieved with Exoseal to the Right Femoral artery. 12:47:36 Sheath removed intact; hemostasis achieved with Exoseal to the Left Femoral artery. 12:50:02 Versed 1 mg I.V. was administered by Jimy Aparicio RN; for sedation; 12:50:13 Fentanyl 50 mcg I.V. was administered by Jimy Aparicio RN; for sedation ; 12:52:52 Procedure ended.(Physican Out) 12:53:22 Fluoroscopy time 05.60 minutes. 12:53:27 Fluoroscopy dose: 905 mGy 12:53:27 Flurop Dose total: 905 12:57:37 Sharps counted by scrub and verified by R.N. 12:57:38 Insertion/operative site no bleeding no hematoma. 12:57:44 Post-op/insertion site Right Femoral artery dressed using a 4 x 4 and Tegaderm. 12:57:48 Post-op/insertion site Left Femoral artery dressed using a 4 x 4 and Tegaderm. 12:57:52 Post right femoral artery:stable 12:57:56 Post left femerol artery:stable 12:58:50 Post procedure: right posterior tibial pulse Doppler. 12:58:57 Post procedure instruction explained to patient.Patient verbalizes understanding. 12:59:17 Post procedure: left posterior tibial pulse 1+ Palpable, but thready & weak; easily obliterated. 12:59:34 Post procedure: right dorsailis pedis pulse 1+ Palpable, but thready & weak; easily obliterated. 12:59:39 Post procedure: left dorsailis pedis pulse 1+ Palpable, but thready & weak; easily obliterated. 12:59:41 Procedure and supply charges have been captured, reviewed, submitted an d are correct. 13:00:04 Contrast amount:Isovue 300 90ml. 13:06:46 Report given to Outpatients. 13:06:52 Patient transfered to Outpatients with Stretcher. 13:07:28 Vital chart was stopped Intervention Summary Intervention Notes Time ActionType Lesion and Equipment Action# Pressure Duration Attributes Used 12:24:09 Deploy self Undefined1 SMART 12 X 1 expanding 40 X 80 stent stent ([id number]) 12:25:56 Deploy self Undefined1 SMART 12 X 1 expanding 40 X 80 stent stent ([id number]) 12:37:33 Inflate Undefined1 POWERFLEX 1 0 00:00 balloon PRO 8.0 x 40 x 80cm balloon ([id number]) 12:37:38 Inflate Undefined1 POWERFLEX 2 0 00:00 balloon PRO 8.0 x 40 x 80cm balloon ([id number]) Device Usage Item Name Manufacture Quantity Catalog Hospital Part Current Minim al Lot# / Number Charge Number Stock Stock Serial# Code Sterile Cardinal 1 [id number] 996257 942280 5 Angiographic Health Pack ACIST Acist Medical 1 42047 430242 070902 760862 5 Manifold Systems Inc (70251) Bag Decanter Microtek 1 2001S 255050 38333 960450 5 (2001S) Medical Inc. ACIST Syringe Acist Medical 1 23724 072588 500399 056222 20 (36510) Systems Inc ACIST Hand Acist Medical 1 01301 623728 973726 354631 5 Control Systems Inc (15094) DOC .035 wire Cook Medical 1 W67169 634657 072605 5 0984658 (Q12688) TUBING [facility] 1 [id number] 769154 674081 376144 5 Contrast Injection High Pressure (VZO811X) Micropuncture VSI VASCULAR 1 7266V 463515 586181 5 VSI 4FR kit SOLUTIONS SHEATH 5FR Terumo 1 BLK133 368065 373073 437292 40 Trego (RZV782) GARG 260 [employer] 2 Q93065 132929 537432 5 0264113 wire (I45406) 1937009 Angiodynamics Angiodynamics 1 36479269 119933 902154 733906 5 Omniflush 5Fr 65cm ([id number]) Cordis 7Fr Cardinal 2 690225Q 393105 515390 5 BRITE TIP Health 11cm sheath GLIDE Terumo 1 CG507 259113 035811 5 CATHETER 5FR ANGLED 65cm (CG507) SMART 12 X 40 Cardinal 2 [id number] 672152 843925 5 [id number] X 80 stent Health [id number] ([id number]) POWERFLEX PRO Cardinal 2 [id number] 476974 306262 332908 5 8.0 x 40 x Health 80cm balloon ([id number]) INFLATOR [facility] Medical 2 WW8885 024669 371784 120650 5 [id number] BasixTOUCH [id number] ([id number]) EXOSEAL 7Fr Cardinal 2 EX700 135066 291061 379710 5 43282130 (EX700) Health [id number] Signature Audit [place] Stage Time Signature Unsigned Intra-Procedure 12/21/2017 Corey 1:07:25 PM Michael RT (R) (CV) Signatures Monitor : Corey Signature : Michael RT Date : Time : [place] [id number] [facility] [place] [address]
[2017-12-21 09:57] LABS: ANION GAP 12.2 mmol/L (8-16); CALCIUM 8.4 mg/dL (8.5-10.1); CARBON DIOXIDE 25.3 mmol/L (21.0-32.0); CREATININE - SERUM 1.2 mg/dL (0.6-1.3); POTASSIUM - SERUM 4.5 mmol/L (3.5-5.1)
[2017-12-21 10:02] LABS: BASOPHILS 0.4 % (0-2); EOSINOPHILS 2.7 % (0-7); HEMATOCRIT 33.7 % (42.0-54.0); HEMOGLOBIN 10.9 g/dL (13.5-17.5); IMMATURE GRANULOCYTES 0.3 % (0-5); LYMPHOCYTES 28.1 % (15-50); MCH 30.4 pg (26.0-34.0); MCHC 32.3 g/dL (31.0-37.0); MCV 94.1 fL (80.0-100.0); MEAN PLATELET VOLUME 9.8 fL (7.4-10.4); MONOCYTES 9.6 % (2-11); NEUTROPHILS 58.9 % (40-80); PLATELET COUNT 263 10x3/uL (130-400); RBC 3.58 10x6/uL (4.20-6.10); RDW 13.5 % (11.5-14.5); WBC 7.7 10x3/uL (4.8-10.8)
[2017-12-21 10:11] VITALS: Ht 203.2 cm; Wt 120.5 kg
[2017-12-21 10:30] LABS: APTT 30.1 SECONDS (22.8-39.4); INR 1.04 (0.85-1.17); PROTIME 13.2 SECONDS (11.6-15.0)
== END 2017-12-21 16:50 | disposition home or self-care (01) ==
LOC: D.OPS 08:48 → D.SP 13:00 → D.OPS 16:50
PROVIDERS: General Practice
DX: I70.212 Atherosclerosis of native arteries of extremities with intermittent claudication, left leg (principal); I35.0 Nonrheumatic aortic (valve) stenosis; Z01.812 Encounter for preprocedural laboratory examination

== ENCOUNTER → 2018-02-10 09:59 | Outpatient (CLI) | payer MEDICARE, OTHER ==
[2017-12-21 10:11] VITALS: BMI 29.1
== END | disposition home or self-care (01) ==
LOC: D.US 09:59
DX: I73.9 Peripheral vascular disease, unspecified (principal)

== ENCOUNTER → 2018-02-15 14:53 | Outpatient (CLI) | payer MEDICARE, OTHER ==
[2017-12-21 10:11] VITALS: BMI 29.1
== END | disposition home or self-care (01) ==
LOC: D.US 14:53
DX: M79.605 Pain in left leg (principal); M79.604 Pain in right leg; R22.43 Localized swelling, mass and lump, lower limb, bilateral

== ENCOUNTER → 2018-06-14 10:00 | Outpatient (CLI) | payer MEDICARE, OTHER ==
[2017-12-21 10:11] VITALS: BMI 29.1
== END | disposition home or self-care (01) ==
LOC: D.US 10:00
DX: I12.9 Hypertensive chronic kidney disease with stage 1 through stage 4 chronic kidney disease, or unspecified chronic kidney disease (principal); N18.3 Chronic kidney disease, stage 3 (moderate); E11.22 Type 2 diabetes mellitus with diabetic chronic kidney disease; Z68.28 Body mass index [BMI] 28.0-28.9, adult

== ENCOUNTER 2018-10-25 22:55 | Emergency (ER) | payer MEDICARE, OTHER ==
[~2018-10-25] VITALS: Ht 203.2 cm; Wt 118.2 kg
[2018-10-25 23:00] VITALS: Ht 203.2 cm; Wt 118.2 kg
[2018-10-25] MEDS ORDERED: GYNE-LOTRIMIN-745 GM TP (23:57)
[2018-10-25] MEDS ORDERED: DIFLUCAN150 MG PO (23:57)
[2018-10-26 00:32] VITALS: BP 132/72
== END 2018-10-26 00:33 | disposition home or self-care (01) ==
LOC: D.ER 22:55
DX: B37.89 Other sites of candidiasis (principal); E11.9 Type 2 diabetes mellitus without complications; I10 Essential (primary) hypertension; J44.9 Chronic obstructive pulmonary disease, unspecified

== ENCOUNTER → 2018-11-10 12:37 | Outpatient (CLI) | payer MEDICARE, OTHER ==
[2018-10-25 23:00] VITALS: BMI 28.6
[~2018-11-10 12:37] MED LIST changes: +DIFLUCAN150 MG PO; +GYNE-LOTRIMIN-745 GM TP
== END | disposition home or self-care (01) ==
LOC: D.US 12:37
DX: I65.23 Occlusion and stenosis of bilateral carotid arteries (principal)

== ENCOUNTER → 2018-11-30 15:43 | Outpatient (CLI) | payer MEDICARE, OTHER ==
[2018-10-25 23:00] VITALS: BMI 28.6
[2018-11-30 16:14] LABS: BASOPHILS 0.2 % (0-2); EOSINOPHILS 0.6 % (0-7); HEMOGLOBIN 12.1 g/dL (13.5-17.5); IMMATURE GRANULOCYTES 0.1 % (0-5); LYMPHOCYTES 29.1 % (15-50); MCH 31.3 pg (26.0-34.0); MCHC 33.6 g/dL (31.0-37.0); MEAN PLATELET VOLUME 10.2 fL (7.4-10.4); MONOCYTES 8.9 % (2-11); NEUTROPHILS 61.1 % (40-80); PLATELET COUNT 257 10x3/uL (130-400); RBC 3.87 10x6/uL (4.20-6.10); RDW 14.6 % (11.5-14.5); WBC 10.4 10x3/uL (4.8-10.8)
== END | disposition home or self-care (01) ==
LOC: D.LABREF 15:43
DX: D64.9 Anemia, unspecified (principal)

== ENCOUNTER 2019-01-04 05:13 | Day surgery (SDC) | payer MEDICARE, OTHER ==
[~2019-01-04] VITALS: Ht 203.2 cm; Wt 114.3 kg
[2019-01-04 05:35] LABS: BASOPHILS 0.2 % (0-2); HEMATOCRIT 35.8 % (42.0-54.0); HEMOGLOBIN 11.7 g/dL (13.5-17.5); IMMATURE GRANULOCYTES 0.2 % (0-5); LYMPHOCYTES 30.5 % (15-50); MCH 31.6 pg (26.0-34.0); MCHC 32.7 g/dL (31.0-37.0); MCV 96.8 fL (80.0-100.0); MEAN PLATELET VOLUME 9.8 fL (7.4-10.4); MONOCYTES 9.3 % (2-11); NEUTROPHILS 57.8 % (40-80); PLATELET COUNT 255 10x3/uL (130-400); RDW 13.9 % (11.5-14.5); WBC 8.8 10x3/uL (4.8-10.8)
[2019-01-04 05:58] LABS: APTT 32.3 SECONDS (22.8-39.4); INR 0.97 (0.85-1.17); PROTIME 12.4 SECONDS (11.6-15.0)
[2019-01-04 06:04] LABS: ANION GAP 10.9 mmol/L (8-16); CALCIUM 9.2 mg/dL (8.5-10.1); CARBON DIOXIDE 30.6 mmol/L (21.0-32.0); CREATININE - SERUM 1.3 mg/dL (0.6-1.3); POTASSIUM - SERUM 4.5 mmol/L (3.5-5.1)
[2019-01-04] MEDS ORDERED: SPIRIVA18 MCG INH (06:42)
[2019-01-04] MEDS ORDERED: SYMBICORT 16010.2 GM INH (06:42)
[2019-01-04] MEDS ORDERED: FLUTICASONE PRO16 GM (06:43)
[2019-01-04] MEDS ORDERED: MELATONIN 3 MG1 TAB PO (06:44)
[2019-01-04] MEDS ORDERED: ACETAMINOPHEN500 M1 PO (06:45)
[2019-01-04] MEDS ORDERED: EZFE 200200 MG PO (06:46)
[2019-01-04 06:57] VITALS: BP 137/66; Ht 203.2 cm; Wt 114.3 kg
--- NOTE | 2019-01-04 09:20 | NUR ---
REC'D FROM RR. FAMILY AT BEDSIDE. DRESSING CDI. COFFEE AND FL TRAY BROUGHT TO PT.
--- NOTE | 2019-01-04 09:45 | NUR ---
EATING BREAKFAST. AT BEDSIDE. NO C/O. ASKED IF HE HAD EATEN ENOUGH TO GO HOME. EXPLAINED HE HAS TO BE ABLE TO URINATE BEFORE DISCHARGE. VERBALIZED UNDERSTANDING.
--- NOTE | 2019-01-04 09:51 | OP ---
PATIENT NAME: DEANA DUCKWORTH MEDICAL RECORD: [id number] :[birth year] LOCATION:[facility] ADMISSION DATE: SURGEON: BRITTNEY ANGLIN MD DATE OF OPERATION: 01/04/2019 SURGEON: Brittney Anglin MD ANESTHESIA: General anesthesia by Logan Andrews CRNA. DIAGNOSES: Recurrent balanitis and phimosis. PROCEDURE: Circumcision. SPECIMEN: Foreskin. BLOOD LOSS: Minimal. CLINICAL HISTORY: This is a 68-year-old male, who had an episode of paraphimosis and he has issues with recurrent balanitis due to phimosis. He has had diabetes mellitus for 25 years and he has peripheral neuropathy. When I saw him in the office, he had pulled the foreskin back to wash underneath and then he could not reduce the foreskin back to its forward position. I had to manually reduce the paraphimosis in the office. He comes today for a circumcision. HE IS ALLERGIC TO ADHESIVE TAPE, BACLOFEN, DILAUDID, AND PENICILLIN. 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 DESCRIPTION OF PROCEDURE: The patient was given induction of general anesthesia while in supine position. He was prepped and draped. A 2-0 nylon suture was placed through the glans penis and the penis was pulled to full erection length. About a 5-mm proximal to the morris of the glans on the mucosal foreskin, I marked out a line of incision using a marking pen. The foreskin was then brought to its forward position and the cutaneous foreskin was marked in the same location. The 2 incision lines were made using a 15 blade. The dartos fascia in between was dissected using Metzenbaum scissors. Finally, the entire foreskin specimen was removed. We used the Bovie for pinpoint coagulation of small bleeding vessels. The skin was then reapproximated using simple interrupted 4-0 Vicryl. A Xeroform dressing and Kerlix was applied. The patient will take this off in 2 days' time and then he can shower. I will see him in followup in 2 weeks' time. TRANSINT:[id number] Voice Confirmation ID: [id number] DOCUMENT ID: [id number] BRITTNEY ANLGIN MD at 0951 CC: [id number] DICTATION DATE: 01/04/19 0846 PLANT CONTROLLER: 01/04/19 0905 REG [facility] [address] [id number]
--- NOTE | 2019-01-04 10:15 | NUR ---
AMBULATED TO BATHROOM. SITTING AND TRYING TO VOID.
--- NOTE | 2019-01-04 10:45 | NUR ---
iv dc'd with catheter intact. WRITTEN AND VERBAL DC INST. GIVEN TO PT ALONG WITH RX. VERBALIZED UNDERSTANDING.
--- NOTE | 2019-01-04 10:50 | NUR ---
DC'D HOME WITH FAMILY VIA PRIVATE VEHICLE. TAKEN TO VEHICLE VIA WC. STABLE AT TIME OF DC.
== END 2019-01-04 10:50 | disposition home or self-care (01) ==
LOC: D.OPS 05:13
PROVIDERS: Anesthesiology; ATTEND Urology
DX: N48.1 Balanitis (principal); N47.1 Phimosis; E11.42 Type 2 diabetes mellitus with diabetic polyneuropathy; Z88.6 Allergy status to analgesic agent; Z88.5 Allergy status to narcotic agent; Z88.0 Allergy status to penicillin; Z88.8 Allergy status to other drugs, medicaments and biological substances; Z01.812 Encounter for preprocedural laboratory examination

== ENCOUNTER → 2019-03-21 11:19 | Outpatient (CLI) | payer MEDICARE, OTHER ==
[2019-01-04 06:57] VITALS: BMI 27.7
[~2019-03-21 11:19] MED LIST changes: +ACETAMINOPHEN500 M1 PO; +EZFE 200200 MG PO; +FLUTICASONE PRO16 GM; +MELATONIN 3 MG1 TAB PO; +SPIRIVA18 MCG INH; +SYMBICORT 16010.2 GM INH
== END | disposition home or self-care (01) ==
LOC: D.CT 11:19
PROVIDERS: ATTEND Internal Medicine Hematology & Oncology
DX: D64.9 Anemia, unspecified (principal); N18.3 Chronic kidney disease, stage 3 (moderate); D50.9 Iron deficiency anemia, unspecified

== ENCOUNTER → 2019-06-27 16:55 | Outpatient (CLI) | payer MEDICARE, OTHER ==
[2019-01-04 06:57] VITALS: BMI 27.7
== END | disposition home or self-care (01) ==
LOC: D.LABREF 16:55
PROVIDERS: ATTEND Otolaryngology
DX: K11.20 Sialoadenitis, unspecified (principal)

== ENCOUNTER → 2019-08-01 13:15 | Outpatient (CLI) | payer MEDICARE, OTHER ==
[2019-01-04 06:57] VITALS: BMI 27.7
== END | disposition home or self-care (01) ==
LOC: D.US 13:15
PROVIDERS: ATTEND Internal Medicine Cardiovascular Disease
DX: I65.23 Occlusion and stenosis of bilateral carotid arteries (principal); R22.0 Localized swelling, mass and lump, head

== ENCOUNTER 2019-08-13 08:22 | Outpatient (CLI) | payer MEDICARE, OTHER ==
[~2019-08-13] VITALS: Ht 203.2 cm; Wt 112.3 kg
[2019-08-13 10:10] VITALS: BP 143/62; Ht 203.2 cm; Wt 112.3 kg
--- NOTE | 2019-08-13 14:20 | NUR ---
PT ROUNDED ON AT THIS TIME. PT RESTING COMFORTABLY. NO ACUTE DISTRESS NOTED. WILL CONTINUE TO MONIOR.
--- NOTE | 2019-08-13 14:26 | NUR ---
PT BACK FROM CTA AT THIS TIME, WILL BEGIN 4 HOUR POST HYDRATION.
--- NOTE | 2019-08-13 16:28 | NUR ---
PT RESTING COMFORTABLY AT THIS TIME, NAD NOTED.
--- NOTE | 2019-08-13 18:33 | NUR ---
183 IV REMOVED AND PRESSURE HELD. DRESSING APPLIED
== END 2019-08-13 18:55 | disposition home or self-care (01) ==
LOC: D.OPS 08:22 → D.CT 09:00 → D.OPS 18:55
PROVIDERS: ATTEND Internal Medicine Cardiovascular Disease
DX: I65.23 Occlusion and stenosis of bilateral carotid arteries (principal); N18.9 Chronic kidney disease, unspecified

== ENCOUNTER 2019-09-30 19:29 | Emergency (ER) | payer MEDICARE, OTHER ==
[~2019-09-30] VITALS: Ht 203.2 cm; Wt 113.4 kg
[2019-09-30 19:41] VITALS: Ht 203.2 cm; Wt 113.4 kg
[2019-09-30] MEDS ORDERED: CYCLOBENZAPRINE10 MG PO (19:43)
[2019-09-30] MEDS ORDERED: GABAPENTIN300 MG PO (19:47)
[2019-09-30] MEDS ORDERED: OXYCONTIN15 MG PO (19:47)
[2019-09-30] MEDS ORDERED: PERCOCET 10-321 EAC1 PO (19:48)
[2019-09-30] MEDS ORDERED: ZOFRAN4 MG PO (19:48)
[2019-09-30] MEDS ORDERED: PROCHLORPERAZ5 MG/M1 PO (19:49)
[2019-09-30 20:25] LABS: BASOPHILS 0.7 % (0-2); EOSINOPHILS 0.9 % (0-7); HEMATOCRIT 29.1 % (42.0-54.0); HEMOGLOBIN 9.5 g/dL (13.5-17.5); IMMATURE GRANULOCYTES 1.3 % (0-5); LYMPHOCYTES 47.1 % (15-50); MCH 31.8 pg (26.0-34.0); MCHC 32.6 g/dL (31.0-37.0); MCV 97.3 fL (80.0-100.0); MEAN PLATELET VOLUME 10.4 fL (7.4-10.4); MONOCYTES 22.7 % (2-11); NEUTROPHILS 27.3 % (40-80); PLATELET COUNT 313 10x3/uL (130-400); RBC 2.99 10x6/uL (4.20-6.10); RDW 16.9 % (11.5-14.5); WBC 5.4 10x3/uL (4.8-10.8)
[2019-09-30 20:33] LABS: ANION GAP 13.3 mmol/L (8-16); CALCIUM 8.9 mg/dL (8.5-10.1); CREATININE - SERUM 1.3 mg/dL (0.6-1.3); POTASSIUM - SERUM 5.3 mmol/L (3.5-5.1)
[2019-09-30 20:39] LABS: ALBUMIN 2.6 g/dL (3.4-5.0); BILIRUBIN - TOTAL 0.48 mg/dL (0.2-1.3); PROTEIN - SERUM 6.1 g/dL (6.4-8.2)
[2019-09-30 22:07] LABS: APPEARANCE CLEAR (CLEAR); BILIRUBIN NEGATIVE (NEGATIVE); COLOR YELLOW (YELLOW); GLUCOSE 100 mg/dL (NEGATIVE); KETONE NEGATIVE (NEGATIVE); NITRITE NEGATIVE (NEGATIVE); PROTEIN NEGATIVE (NEGATIVE); UROBILINOGEN NORMAL (NORMAL)
[2019-09-30 23:59] VITALS: BP 153/91
== END 2019-10-01 | disposition home or self-care (01) ==
LOC: D.ER 19:29
PROVIDERS: Family Medicine
DX: E86.0 Dehydration (principal); E87.5 Hyperkalemia; C07 Malignant neoplasm of parotid gland; E11.40 Type 2 diabetes mellitus with diabetic neuropathy, unspecified; Z79.84 Long term (current) use of oral hypoglycemic drugs; I10 Essential (primary) hypertension; J44.9 Chronic obstructive pulmonary disease, unspecified; I20.9 Angina pectoris, unspecified; R05 Cough

== ENCOUNTER 2019-12-21 11:37 | Emergency (ER) | payer MEDICARE, OTHER ==
[~2019-12-21] VITALS: Ht 203.2 cm; Wt 95.5 kg
[~2019-12-21 11:37] MED LIST changes: +GABAPENTIN300 MG PO; +OXYCONTIN15 MG PO; +PERCOCET 10-321 EAC1 PO; +PROCHLORPERAZ5 MG/M1 PO; +ZOFRAN4 MG PO
[2019-12-21 11:42] VITALS: Ht 203.2 cm; Wt 95.5 kg
[2019-12-21 11:55] VITALS: BP 137/56
[2019-12-21 12:27] LABS: BASOPHILS 0.1 % (0-2); EOSINOPHILS 0.2 % (0-7); HEMATOCRIT 32.9 % (42.0-54.0); HEMOGLOBIN 10.7 g/dL (13.5-17.5); IMMATURE GRANULOCYTES 0.3 % (0-5); LYMPHOCYTES 4.4 % (15-50); MCH 32.2 pg (26.0-34.0); MCHC 32.5 g/dL (31.0-37.0); MCV 99.1 fL (80.0-100.0); MEAN PLATELET VOLUME 9.6 fL (7.4-10.4); MONOCYTES 9.9 % (2-11); NEUTROPHILS 85.1 % (40-80); RBC 3.32 10x6/uL (4.20-6.10); RDW 14.9 % (11.5-14.5); WBC 10.8 10x3/uL (4.8-10.8)
[2019-12-21 12:28] LABS: PLATELET COUNT 182 10x3/uL (130-400)
[2019-12-21] MEDS ORDERED: ZANAFLEX4 MG PO (12:33)
[2019-12-21 12:34] LABS: CALC OSMOLALITY 278 mosm/kg (275-300); CALCIUM 9.1 mg/dL (8.5-10.1); CARBON DIOXIDE 29.7 mmol/L (21.0-32.0); CHLORIDE - SERUM 104 mmol/L (98-107); CREATININE - SERUM 1.3 mg/dL (0.6-1.3); POTASSIUM - SERUM 4.3 mmol/L (3.5-5.1); SODIUM 139 mmol/L (136-145); UREA NITROGEN 17 mg/dL (7-18); eGFR NON AFRICAN AMERICAN 58 mL/min (90-120)
[2019-12-21 12:36] LABS: GLUCOSE 83 mg/dL (74-106)
[2019-12-21 12:37] LABS: APTT 31.8 SECONDS (22.8-39.4); INR 0.96 (0.85-1.17); PROTIME 12.7 SECONDS (11.6-15.0)
[2019-12-21] MEDS ORDERED: CARDIZEM30 MG PO (12:37)
[2019-12-21] MEDS ORDERED: VITAMIN B-121000 MCG PO (12:39)
[2019-12-21] MEDS ORDERED: CYMBALTA30 MG PO (12:40)
[2019-12-21] MEDS ORDERED: TYLENOL W/CODEIN5 ML PO (12:46)
[2019-12-21] MEDS ORDERED: SILVADENE20 GM TP (12:47)
[2019-12-21 12:51] LABS: ALBUMIN 3.1 g/dL (3.4-5.0); ALKALINE PHOSPHATASE 203 U/L (30-120); ALT (SGPT) 19 U/L (10-68); BILIRUBIN - TOTAL 0.42 mg/dL (0.2-1.3); CKMB 0.8 U/L (0.0-3.6); CREATINE KINASE 74 UL (21-232); TROPONIN-I < 0.017 ng/mL (0.000-0.060)
[2019-12-21] MEDS ORDERED: MAGIC MOUTH WASH (12:52)
== END 2019-12-21 15:45 | disposition home or self-care (01) ==
LOC: D.ER 11:37
PROVIDERS: Family Medicine
DX: S22.059A Unspecified fracture of T5-T6 vertebra, initial encounter for closed fracture (principal); M79.18 Myalgia, other site; T14.8XXA Other injury of unspecified body region, initial encounter; W19.XXXA Unspecified fall, initial encounter; Y93.9 Activity, unspecified; Y92.9 Unspecified place or not applicable; E11.40 Type 2 diabetes mellitus with diabetic neuropathy, unspecified; J44.9 Chronic obstructive pulmonary disease, unspecified; K21.9 Gastro-esophageal reflux disease without esophagitis; I10 Essential (primary) hypertension; Z79.4 Long term (current) use of insulin

== ENCOUNTER 2020-03-10 11:08 | Inpatient (IN) | payer MEDICARE, OTHER ==
[~2020-03-10] VITALS: Ht 203.2 cm; Wt 103.0 kg
[~2020-03-10 11:08] MED LIST changes: +CARDIZEM30 MG PO; +CYMBALTA30 MG PO; -FLUTICASONE PRO16 GM; +MAGIC MOUTH WASH; +SILVADENE20 GM TP; +TYLENOL W/CODEIN5 ML PO; +VITAMIN B-121000 MCG PO; +ZANAFLEX4 MG PO
[2020-03-10 12:18] LABS: BASOPHILS 0.2 % (0-2); EOSINOPHILS 0.2 % (0-7); HEMATOCRIT 33.5 % (42.0-54.0); HEMOGLOBIN 11.1 g/dL (13.5-17.5); IMMATURE GRANULOCYTES 0.7 % (0-5); LYMPHOCYTES 11.4 % (15-50); MCH 31.4 pg (26.0-34.0); MCHC 33.1 g/dL (31.0-37.0); MCV 94.9 fL (80.0-100.0); MEAN PLATELET VOLUME 9.8 fL (7.4-10.4); MONOCYTES 7.8 % (2-11); NEUTROPHILS 79.7 % (40-80); RBC 3.53 10x6/uL (4.20-6.10); RDW 15.2 % (11.5-14.5); WBC 4.4 10x3/uL (4.8-10.8)
[2020-03-10 12:19] LABS: PLATELET COUNT 113 10x3/uL (130-400)
[2020-03-10 12:30] VITALS: BP 111/42
[2020-03-10 12:30] LABS: CALCIUM 8.4 mg/dL (8.5-10.1); CARBON DIOXIDE 28.8 mmol/L (21.0-32.0); CREATININE - SERUM 1.2 mg/dL (0.6-1.3); POTASSIUM - SERUM 3.8 mmol/L (3.5-5.1)
[2020-03-10 12:36] LABS: ALBUMIN 2.3 g/dL (3.4-5.0); BILIRUBIN - TOTAL 0.5 mg/dL (0.2-1.3); PROTEIN - SERUM 5.2 g/dL (6.4-8.2)
[2020-03-10 12:49] LABS: % SATURATION 26 % (15-55); IRON 44 ug/dl (35-150); TOTAL IRON BIND CAPACITY 165 ug/dl (260-445); UNSAT IRON BIND CAPACITY 121 ug/dl (150-375)
[2020-03-10 13:23] LABS: AMORPHOUS SEDIMENT <1+ /lpf (NONE SEEN); BACTERIA FEW /hpf (NEGATIVE); BILIRUBIN NEGATIVE (NEGATIVE); EPITHELIAL CELLS 0-5 /hpf (0-5); GLUCOSE 50 mg/dL (NEGATIVE); GRANULAR CAST 0-5 /lpf (NONE SEEN); HYALINE CAST OCC /lpf (NONE SEEN); KETONE NEGATIVE (NEGATIVE); NITRITE NEGATIVE (NEGATIVE); RED CELLS - URINE 0-5 /hpf (0-5); SPECIFIC GRAVITY 1.015 (1.005-1.020); WHITE CELLS - URINE 0-5 /hpf (NEGATIVE)
[2020-03-10 13:26] LABS: FERRITIN 808 ng/mL (3-244); LDH 279 U/L (85-227)
[2020-03-10 13:36] VITALS: BP 103/54
[2020-03-10 14:35] VITALS: BP 112/52
[2020-03-10] MEDS ORDERED: CYMBALTA60 MG PO (15:41)
[2020-03-10] MEDS ORDERED: NEURONTIN800 MG PO (15:43)
[2020-03-10 15:50] VITALS: BP 136/74; BMI 24.9
[2020-03-10 19:47] VITALS: BP 146/64
--- NOTE | 2020-03-10 20:04 | NUR ---
REPORT GIVEN AND ROUNDING COMPLETE. PATIENT LAYING IN BED IN LOW FOWLERS, FAMILY AT BEDSIDE. NO DISTRESS NOTED AT THIS TIME. PATIENT HAS A RIGHT AC PIV THAT IS RUNNING FLUIDS AT THIS TIME. PIV SHOWS NO S/SX OF INFILTRATION. PATIENT STATES HE HAS NO NEEDS AT THIS TIME. CALL LIGHT WITHIN REACH AND BED IN LOWEST LOCKED POSITION. ASSESSMENT COMPLETE.
[2020-03-11 00:26] VITALS: BP 160/66
[2020-03-11 03:57] VITALS: BP 122/52
[2020-03-11 06:15] LABS: BASOPHILS 0 % (0-2); EOSINOPHILS 0.3 % (0-7); HEMATOCRIT 29.9 % (42.0-54.0); HEMOGLOBIN 9.7 g/dL (13.5-17.5); IMMATURE GRANULOCYTES 0.9 % (0-5); MCHC 32.4 g/dL (31.0-37.0); MCV 95.5 fL (80.0-100.0); MEAN PLATELET VOLUME 10.3 fL (7.4-10.4); MONOCYTES 11.2 % (2-11); NEUTROPHILS 63.6 % (40-80); PLATELET COUNT 113 10x3/uL (130-400); RBC 3.13 10x6/uL (4.20-6.10); RDW 15.3 % (11.5-14.5); WBC 3.3 10x3/uL (4.8-10.8)
[2020-03-11 06:31] LABS: ANION GAP 9.8 mmol/L (8-16); BILIRUBIN - TOTAL 0.44 mg/dL (0.2-1.3); CARBON DIOXIDE 29.3 mmol/L (21.0-32.0); CREATININE - SERUM 1.1 mg/dL (0.6-1.3); POTASSIUM - SERUM 4.1 mmol/L (3.5-5.1); PROTEIN - SERUM 5.2 g/dL (6.4-8.2)
[2020-03-11 09:00] VITALS: BP 135/51
[2020-03-11 10:18] VITALS: Ht 203.2 cm; Wt 103.0 kg
[2020-03-11 12:00] VITALS: BP 107/68
--- NOTE | 2020-03-11 16:33 | NUR ---
DRESSING APPLIED TO RIGHT ANKLE.
[2020-03-11 16:47] VITALS: BP 106/61
--- NOTE | 2020-03-11 19:30 | NUR ---
PT IN BED, AAO X 3, RESP EVEN AND UNLABORED. NO DISTRESS NOTED AT THIS TIME. CL IN REACH, SR UP X 2.
[2020-03-11 19:48] VITALS: BP 122/60
[2020-03-12 00:12] VITALS: BP 121/51
--- NOTE | 2020-03-12 02:37 | NUR ---
I have reviewed this patient and I concur with the Shift Assessment completed by the Licensed Practical Nurse today this shift.
[2020-03-12 04:55] VITALS: BP 136/60
[2020-03-12 06:20] LABS: BASOPHILS 0.3 % (0-2); EOSINOPHILS 0.6 % (0-7); HEMATOCRIT 29.6 % (42.0-54.0); HEMOGLOBIN 9.6 g/dL (13.5-17.5); IMMATURE GRANULOCYTES 1.3 % (0-5); MCH 31.1 pg (26.0-34.0); MCHC 32.4 g/dL (31.0-37.0); MCV 95.8 fL (80.0-100.0); MEAN PLATELET VOLUME 10.3 fL (7.4-10.4); MONOCYTES 9.1 % (2-11); NEUTROPHILS 60.7 % (40-80); PLATELET COUNT 107 10x3/uL (130-400); RBC 3.09 10x6/uL (4.20-6.10); RDW 15.5 % (11.5-14.5); WBC 3.2 10x3/uL (4.8-10.8)
[2020-03-12 06:50] LABS: ANION GAP 7.9 mmol/L (8-16); BILIRUBIN - TOTAL 0.63 mg/dL (0.2-1.3); CALCIUM 7.6 mg/dL (8.5-10.1); CARBON DIOXIDE 28.2 mmol/L (21.0-32.0); CREATININE - SERUM 1.1 mg/dL (0.6-1.3); POTASSIUM - SERUM 4.1 mmol/L (3.5-5.1); PROTEIN - SERUM 4.6 g/dL (6.4-8.2)
[2020-03-12 09:53] VITALS: BP 130/69
--- NOTE | 2020-03-12 11:09 | NUR ---
PT WITH BUPRENORPHINE PATCH ON FROM HOME, DUE TO BE CHANGED. CONTACTED PETTY MISHRA REGARDING, STATES OK FOR PLACEMENT USING HOME DOSE SINCE NOT ON PHARMACY PROFILE. PLACED NEW PATCH TO LEFT BACK AND DATED.
[2020-03-12 13:33] VITALS: BP 129/51
[2020-03-12 20:00] VITALS: BP 147/76
--- NOTE | 2020-03-12 20:15 | NUR ---
REPORT RECEIVED AND ROUNDING COMPLETE. PATIENT LAYING IN BED IN HIGH FOWLERS, NOT HAPPY THAT IS STILL HERE BUT UNDERSTANDS WHY. A&O X4, NO DISTRESS NOTED. BILATERAL LEGS RED WITH EDEMA +2, RIGHT POST ANKLE HAS A SORE, BACK SIDE HAS 2 STAGE 3, PATIENT NEEDS ASSISTANCE TO GO TO BATH ROOM X2. PATIENT STATES HE HAS NO NEEDS AT THIS TIME. PIV TO THE RIGHT AC THAT IS RUNNING NORMAL SALINE AT THIS TIME, PIV SHOWS NO S/SX OF INFILTRATION. CALL LIGHT WITHIN REACH AND BED IN LOWEST LOCKED POSITION.
[2020-03-13] VITALS: BP 125/61
[2020-03-13 04:00] VITALS: BP 139/61
[2020-03-13 04:51] LABS: BASOPHILS 0.3 % (0-2); EOSINOPHILS 1.1 % (0-7); HEMATOCRIT 31.7 % (42.0-54.0); HEMOGLOBIN 10.2 g/dL (13.5-17.5); IMMATURE GRANULOCYTES 2.4 % (0-5); LYMPHOCYTES 26.3 % (15-50); MCH 30.8 pg (26.0-34.0); MCHC 32.2 g/dL (31.0-37.0); MCV 95.8 fL (80.0-100.0); MONOCYTES 9.7 % (2-11); NEUTROPHILS 60.2 % (40-80); PLATELET COUNT 112 10x3/uL (130-400); RBC 3.31 10x6/uL (4.20-6.10); RDW 15.1 % (11.5-14.5); WBC 3.8 10x3/uL (4.8-10.8)
[2020-03-13 05:01] LABS: ANION GAP 8.7 mmol/L (8-16); CALCIUM 8.5 mg/dL (8.5-10.1); CARBON DIOXIDE 30.1 mmol/L (21.0-32.0); CREATININE - SERUM 1.1 mg/dL (0.6-1.3); POTASSIUM - SERUM 3.8 mmol/L (3.5-5.1)
--- NOTE | 2020-03-13 07:17 | NUR ---
PT AWAKE AND ORIENTED, LYING IN BED. NO COMPLAINTS OR CONCERNS, ALL QUESTIONS ANSWERED TO THE BEST OF MY ABILITY. CL IN REACH, SRX2.
[2020-03-13 09:14] VITALS: BP 138/66
--- NOTE | 2020-03-13 09:53 | NUR ---
PT AWAKE AND ORIENTED, TOOK MEDICATIONS WITHOUT COMPLICATIONS. ASSISTED TO WHEELCHAIR, THEN TO BATHROOM, THEN BACK TO BED. X2, MOD ASSIST FOR ME. NO COMPLAITNS OR CONCERNS, AT THIS TIME. CL IN REACH, SRX2.
[2020-03-13 10:20] LABS: MAGNESIUM - SERUM 1.6 mg/dL (1.8-2.4); THYROID STIMULATING HORMONE 1.52 uIU/mL (0.36-3.74)
--- NOTE | 2020-03-13 10:49 | NUR ---
I have reviewed this patient and I concur with the Shift Assessment completed by the Licensed Practical Nurse today this shift.
--- NOTE | 2020-03-13 13:32 | NUR ---
PT C/O PAIN IN VARIOUS WOUNDS ON HIS BODY. WOUND CARE IS UNABLE TO SEE PT D/T THEYRE NOT HERE THIS WEEK. WILL DO MY BEST TO PAD A PROTECT AREAS. CL IN REACH, SRX2, AT BEDSIDE.
[2020-03-13 13:45] VITALS: BP 141/66
--- NOTE | 2020-03-13 14:00 | MORECARE ---
CASE MANAGEMENT DISCHARGE SUMMARY PATIENT: DEANA DUCKWORTH UNIT: [id number] ADM DATE: 03/10/20 AGE: 69 : [birth year] SEX: M ROOM/BED: D.2104 AUTHOR: PRICE NAIR PHYSICIAN: REFERRING PHYSICIAN: HALLIE AREVALO MD DATE OF SERVICE: 03/13/20 Discharge Plan Patient Name: [facility] DUCKWORTH [facility] [facility] 1950 Planned Disposition: Home Anticipated Discharge Date: Discharge Date: Expected LOS: Initial Reviewer: [email or web address] Initial Review Date: 03/13/2020 Generated: 03/13/20 3:00 pm Patient Name: DEANA DUCKWORTH Page 50393 at 1400 All edits/amendments must be made on the electronic document DICTATION DATE: 03/13/20 1400 INDUSTRIAL HYGIENIST: ALEENA 03/13/20 1400 RPT#: [id number] DC DATE: STATUS: ADM IN [facility] [address] [place] [address] END OF REPORT
--- NOTE | 2020-03-13 14:10 | MORECARE ---
CASE MANAGEMENT DISCHARGE SUMMARY PATIENT: DEANA HUTSON UNIT: [id number] ADM DATE: 03/10/20 AGE: 69 : [birth year] SEX: M ROOM/BED: D.2104 AUTHOR: PRICE NAIR PHYSICIAN: REFERRING PHYSICIAN: HALLIE AREVALO MD DATE OF SERVICE: 03/13/20 Discharge Plan Patient Name: DEANA HUTSON [facility] [facility] 1950 Planned Disposition: Home Anticipated Discharge Date: Discharge Date: Expected LOS: Initial Reviewer: [email or web address] Initial Review Date: 03/13/2020 Generated: 03/13/20 3:09 pm DCPIA - Discharge Planning Initial Assessment Updated by [email or web address]: Genevieve Hou on 03/13/20 2:01 pm * Is the patient Alert and Oriented? Yes * How many steps to enter\exit or inside your home? 0/1 FLIGHT * PCP Dr. Fletcher * [place] [facility] [place] [address] * Preadmission Environment Home with Family * ADLs Partial Dependent * Partial ADLs (Assistance needed) Ambulation * Equipment Power Chair or Electric Scooter Walker Wheelchair * List name and contact numbers for known caregivers / representatives who currently or will assist patient after discharge: Tanisha Hutson - spouse - [phone] Home number - [phone] * Verbal permission to speak to the caregivers and representatives has been obtained from the patient. Yes * Community resources currently utilized Home Health * Please name any agencies selected above. [facility] * Additional services required to return to the preadmission environment? No * Can the patient safely return to the preadmission environment? Yes * Has this patient been hospitalized within the prior 30 days at any hospital? No Last DP export: 03/13/20 1:00 p Patient Name: DEANA HUTSON Page 89354 at 1410 All edits/amendments must be made on the electronic document DICTATION DATE: 03/13/20 140 AUTOMOBILE MECHANIC SUPERVISOR: ALEENA 03/13/20 1409 RPT#: [id number] DC DATE: STATUS: ADM IN [facility] [address] [place] [address] END OF REPORT
--- NOTE | 2020-03-13 14:17 | MORECARE ---
CASE MANAGEMENT DISCHARGE SUMMARY PATIENT: DEANA HUTSON UNIT: [id number] ADM DATE: 03/10/20 AGE: 69 : 49 SEX: M ROOM/BED: D.6365 AUTHOR: KOREYDOC PHYSICIAN: REFERRING PHYSICIAN: HALLIE AREVALO MD DATE OF SERVICE: 03/13/20 Discharge Plan Patient Name: DEANA HUTSON Facility: [facility]:[place] : 1950 Planned Disposition: Home Anticipated Discharge Date: Discharge Date: Expected LOS: Initial Reviewer: [email or web address] Initial Review Date: 03/13/2020 Generated: 03/13/20 3:17 pm Comments DCP- Discharge Planning Updated by [id number]: Genevieve Hou on 03/13/20 1:[address] Patient Name: DEANA HUTSON Admission Status: ER Accout number: [id number] Admission Date: 03-10-2020 : 1950 Admission Diagnosis:TYPE 2 DIABETES MELLITUS WITH HYPOGLYCEMIA WITHOUT COMA Attending: HALLIE AREVALO Current LOS: 3 Anticipated DC Date: Planned Disposition: Home Primary Insurance: MEDICARE A & B Discharge Planning Comments: CM met with patient and spouse concerning discharge plans/needs. Patient lives in a 2 story house, but does not go upstairs. States they have a ramp to enter the home. He has 2 walker, 2 wheelchairs and an electric wheelchair. reports that she would like to see him get stronger before returning home with inpatient rehab. I spoke with the patient about this and informed him of concerns. He understands, but states he wants to go home with [facility]. States his physical therapist comes out twice a week and states he has been doing better. States he also has nursing come twice a week. He tells me he feels this is a safe discharge. He states he is able to transfer himself to the wheelchair to the chair and bed, etc. I discussed the availability of inpatient rehab, SNF, DME needs and hospice. His takes the list of hospice agencies from me. Patient states at this time, he is going to start chemo when oncology is ready and still wants to go home with home health services. CM will continue to follow and assist with discharge planning/needs. Sheeter Helper: Genevieve Savi DCPIA - Discharge Planning Initial Assessment Updated by [email or web address]: Genevieve Castroaltagracia on 03/13/20 2:01 pm * Is the patient Alert and Oriented? Yes * How many steps to enter\exit or inside your home? 0/1 FLIGHT * PCP Dr. Fletcher * [facility] [address] * Preadmission Environment Home with Family * ADLs Partial Dependent * Partial ADLs (Assistance needed) Ambulation * Equipment Power Chair or Electric Scooter Walker Wheelchair * List name and contact numbers for known caregivers / representatives who currently or will assist patient after discharge: Tanisha Hutson - spouse - [phone] Home number - [phone] * Verbal permission to speak to the caregivers and representatives has been obtained from the patient. Yes * Community resources currently utilized Home Health * Please name any agencies selected above. [facility] * Additional services required to return to the preadmission environment? No * Can the patient safely return to the preadmission environment? Yes * Has this patient been hospitalized within the prior 30 days at any hospital? No External Providers External Provider: [facility] Next Contact Date: Service Request Date: Service Type: Resolution: Reviewer: Comments: Coverage Notice Reviewer: [id number] - Genevieve Hou Notice Issued Date-Time: 03/13/2020 14:14 Notice Type: Patient Choice Letter Notice Delivered To: Family Member Relationship to Patient: Spouse Sock Knitting Machine Operator Name: Tanisha Hutson Delivery Method: HAND - Hand Delivered Bridgett Days: Prior Verbal Notification: Recipient Understood Notice: Yes Recipient Signature: Yes Med Rec Note Co-signed by Attending: Coverage Notice Comment: [facility] Last DP export: 03/13/20 1:10 p Patient Name: DEANA HUTSON Page 11279 at 1417 All edits/amendments must be made on the electronic document DICTATION DATE: 03/13/201416 ADMINISTRATIVE DIETITIAN: ALEENA 03/13/201416 RPT#: [id number] DC DATE: STATUS: ADM IN [facility] [address] [place] [address] END OF REPORT
--- NOTE | 2020-03-13 14:24 | MORECARE ---
CASE MANAGEMENT DISCHARGE SUMMARY PATIENT: DEANA HUTSON UNIT: [id number] ADM DATE: 03/10/20 AGE: 69 : 49 SEX: M ROOM/BED: D.3748 AUTHOR: KOREYDOC PHYSICIAN: REFERRING PHYSICIAN: HALLIE AREVALO MD DATE OF SERVICE: 03/13/20 Discharge Plan Patient Name: DEANA HUTSON Facility: [facility]:[place] : 1950 Planned Disposition: Home Anticipated Discharge Date: Discharge Date: Expected LOS: Initial Reviewer: [email or web address] Initial Review Date: 03/13/2020 Generated: 03/13/20 3:24 pm Comments DCP- Discharge Planning Updated by [email or web address]: Genevieve Hou on 03/13/20 1:[address] Patient Name: DEANA HUTSON Admission Status: ER Accout number: [id number] Admission Date: 03-10-2020 : 1950 Admission Diagnosis:TYPE 2 DIABETES MELLITUS WITH HYPOGLYCEMIA WITHOUT COMA Attending: HALLIE AREVALO Current LOS: 3 Anticipated DC Date: Planned Disposition: Home Primary Insurance: MEDICARE A & B Discharge Planning Comments: CM met with patient and spouse concerning discharge plans/needs. Patient lives in a 2 story house, but does not go upstairs. States they have a ramp to enter the home. He has 2 walker, 2 wheelchairs and an electric wheelchair. reports that she would like to see him get stronger before returning home with inpatient rehab. I spoke with the patient about this and informed him of concerns. He understands, but states he wants to go home with [facility]. States his physical therapist comes out twice a week and states he has been doing better. States he also has nursing come twice a week. He tells me he feels this is a safe discharge. He states he is able to transfer himself to the wheelchair to the chair and bed, etc. I discussed the availability of inpatient rehab, SNF, DME needs and hospice. His takes the list of hospice agencies from me. Patient states at this time, he is going to start chemo when oncology is ready and still wants to go home with home health services. CM will continue to follow and assist with discharge planning/needs. Training Developer: Genevieve Savi DCPIA - Discharge Planning Initial Assessment Updated by [id number]: Genevieve Castroaltagracia on 03/13/20 2:01 pm * Is the patient Alert and Oriented? Yes * How many steps to enter\exit or inside your home? 0/1 FLIGHT * PCP Dr. Fletcher * [facility] [address] * Preadmission Environment Home with Family * ADLs Partial Dependent * Partial ADLs (Assistance needed) Ambulation * Equipment Power Chair or Electric Scooter Walker Wheelchair * List name and contact numbers for known caregivers / representatives who currently or will assist patient after discharge: Tanisha Hutson - spouse - [phone] Home number - [phone] * Verbal permission to speak to the caregivers and representatives has been obtained from the patient. Yes * Community resources currently utilized Home Health * Please name any agencies selected above. [facility] * Additional services required to return to the preadmission environment? No * Can the patient safely return to the preadmission environment? Yes * Has this patient been hospitalized within the prior 30 days at any hospital? No External Providers External Provider: [facility] Next Contact Date: Service Request Date: Service Type: Resolution: Reviewer: Comments: Coverage Notice Reviewer: [id number] - Genevieve Hou Notice Issued Date-Time: 03/13/2020 14:14 Notice Type: Patient Choice Letter Notice Delivered To: Family Member Relationship to Patient: Spouse Pipe Organ Mechanic Apprentice Name: Tanisha Hutson Delivery Method: HAND - Hand Delivered Bridgett Days: Prior Verbal Notification: Recipient Understood Notice: Yes Recipient Signature: Yes Med Rec Note Co-signed by Attending: Coverage Notice Comment: [facility] Last DP export: 03/13/20 1:17 p Patient Name: DEANA HUTSON Page [phone] at 1424 All edits/amendments must be made on the electronic document DICTATION DATE: 03/13/201423 CARE INFORMATION ASSOCIATE: ALEENA 03/13/201423 RPT#: [id number] DC DATE: STATUS: ADM IN [facility] [address] [place] [address] END OF REPORT
--- NOTE | 2020-03-13 15:43 | NUR ---
CLEANED ALL OF PATIETNS ULCERS AND BOGGY HEALS. APPLIED BANDAGING TO SKIN TEARS ON LEFT KNEE. PUT HEEL PROTECTORS ON. CL IN REACH, SRX2.
[2020-03-13 16:57] VITALS: BP 136/58
[2020-03-13 20:00] VITALS: BP 133/69
--- NOTE | 2020-03-13 20:15 | NUR ---
RPEORT RECEIVED AND ROUNDING COMPLETE. PATIENT LAYING IN BED IN HIGH FOWLERS, PATIENT REQUESTED THAT I REMOVE HIS RIGHT AC PIV BECAUSE IT HURTS, UNABLE TO TO FLUSH. REMOVED PIV, CATH INTACT, NO BLEEDING NOTED. PATIENT HAS A LEFT FOREARM PIV THAT IS SALINE LOCKED AND FLUSHES EASILY. PATIENT SHOWS NO S/SX OF DISTRESS AT THIS TIME. PATIENT REPORTS PAIN AN 2/10 AT THIS TIME, DENIES NEED OF PAIN MEDICATION, WOULD LIKE IT WITH HIS PM'S MEDS. PATIENT STATES HE HAS NO NEEDS AT THIS TIME. CALL LIGHT WITHIN REACH AND BED I LOWEST LOKED POSITION.
[2020-03-14] VITALS: BP 117/58
[2020-03-14 04:00] VITALS: BP 125/65
[2020-03-14 04:58] LABS: BASOPHILS 0.3 % (0-2); EOSINOPHILS 0.5 % (0-7); HEMATOCRIT 28.7 % (42.0-54.0); HEMOGLOBIN 9.3 g/dL (13.5-17.5); IMMATURE GRANULOCYTES 1.4 % (0-5); LYMPHOCYTES 30.8 % (15-50); MCHC 32.4 g/dL (31.0-37.0); MCV 95.7 fL (80.0-100.0); MEAN PLATELET VOLUME 10.9 fL (7.4-10.4); MONOCYTES 11.2 % (2-11); NEUTROPHILS 55.8 % (40-80); PLATELET COUNT 106 10x3/uL (130-400); RDW 15.3 % (11.5-14.5); WBC 3.7 10x3/uL (4.8-10.8)
[2020-03-14 05:13] LABS: ANION GAP 7.8 mmol/L (8-16); CALCIUM 8.2 mg/dL (8.5-10.1); CARBON DIOXIDE 28.3 mmol/L (21.0-32.0); CREATININE - SERUM 1.1 mg/dL (0.6-1.3); POTASSIUM - SERUM 4.1 mmol/L (3.5-5.1)
[2020-03-14 08:42] VITALS: BP 129/60
--- NOTE | 2020-03-14 11:16 | NUR ---
Nutrition Follow-up: Pt reports poor PO intake. States that he would eat better at home. Does not like Glucerna. Skin issues noted per nursing assessment (stage 3 to buttock and stage 2 to R ankle). Pt agreed to try Jose Eduardo to promote wound healing. Ate ~50% of breakfast this AM. Diet: Diabetic, Glucerna TID No new wt; last wt: 227# (03/11) Labs noted: Glu 136, Ca 8.2 Meds noted: Humulin, Protonix, NS @ 30, electrolyte protocol -Encourage PO intake and honor food preferences within diet restrictions. -D/c Glucerna per pt request. -Will send Jose Eduardo with lunch today for pt trial. -Monitor wt; noted daily wts ordered. -RD following.
[2020-03-14 13:21] VITALS: BP 111/55
[2020-03-14 17:31] VITALS: BP 118/53
--- NOTE | 2020-03-14 20:22 | NUR ---
RECEIVED BEDSIDE SHIFT REPORT. ALERT AND ORIUENTED X4. UP WITH WALKER AND ASSIST. PT REPORTS NUMEROUS FALLS AT HOME. STATES HE DOES'NT KNOW WHY HE KEEPS FALLING. SCABS TO LEFT ARM AND BOTH KNEES. SEVERAL SCABED AREAS TO LEFT LEG. DSG TO RIGHT ANKLE. CDI. TOP OF TOES ON LT FOOT GREAT TOE, MIDDLE TOE AND SMALL TOE NECROTIC AREAS. WEARS BRIEF IN BED. DENIES ANY NEEDS AT THIS TIME.
[2020-03-14 20:30] VITALS: BP 120/58
[2020-03-15 00:30] VITALS: BP 106/53
[2020-03-15 04:30] VITALS: BP 123/58
[2020-03-15 04:46] LABS: BASOPHILS 0.3 % (0-2); EOSINOPHILS 0.3 % (0-7); HEMATOCRIT 27.2 % (42.0-54.0); HEMOGLOBIN 8.8 g/dL (13.5-17.5); LYMPHOCYTES 36.6 % (15-50); MCH 31.3 pg (26.0-34.0); MCHC 32.4 g/dL (31.0-37.0); MCV 96.8 fL (80.0-100.0); MONOCYTES 13.3 % (2-11); NEUTROPHILS 48.5 % (40-80); PLATELET COUNT 110 10x3/uL (130-400); RBC 2.81 10x6/uL (4.20-6.10); RDW 15.3 % (11.5-14.5)
[2020-03-15 05:01] LABS: ANION GAP 6.6 mmol/L (8-16); CALCIUM 8.2 mg/dL (8.5-10.1); CARBON DIOXIDE 29.1 mmol/L (21.0-32.0); CREATININE - SERUM 1.1 mg/dL (0.6-1.3); POTASSIUM - SERUM 3.7 mmol/L (3.5-5.1)
--- NOTE | 2020-03-15 07:00 | NUR ---
RECEIVED REPORT. ASSUMED CARE OF PATIENT. CALL LIGHT WITHIN REACH. WHITE BOARD UPDATED, BEDSIDE SHIFT REPORT COMPLETE. PATIENT RESTING WITH EYES CLOSED, EASILY AROUSED. RESP EVEN AND UNLABORED. ST ON TELEMETRY, RATE 103.
--- NOTE | 2020-03-15 08:45 | NUR ---
DURING MEDICATION ADMINISTRATION, PATIENT HAVING DIFFICULTY WITH ICE WATER. PATIENT SITTING STRAIGHT UP IN BED BUT NOTED TO COUGH AFTER DRINKING ICE WATER TO SWALLOW MEDICATIONS. PATIENT THEN SWITCHED TO ROOM TEMPERATURE COFFEE AND THIS FRONT EDGER CONTINUED TO NOTICE PATIENT WITH SLIGHT COUGH AFTER DRINKING. PATIENT STATES THAT HE HAS HAD A SWALLOW EVAL IN THE PAST FOR THIS VERY ISSUE BUT HE PASSED. PATIENTS AT BEDSIDE DURING CONVERSATION.
--- NOTE | 2020-03-15 10:02 | NUR ---
MEDICATED FOR PAIN AT THIS TIME.
[2020-03-15 10:14] VITALS: BP 136/68
[2020-03-15 14:22] VITALS: BP 153/64
--- NOTE | 2020-03-15 14:55 | NUR ---
PATIENT RESTING PEACEFULLY WITH EYES CLOSED. NO DISTRESS. PATIENT IS NOT AT THE BEDSIDE AT THIS TIME. CALL LIGHT WITHIN REACH.
--- NOTE | 2020-03-15 16:30 | NUR ---
FSBS 235. 4 UNITS HUMULIN ADMINISTERED PER SLIDING SCALE.
--- NOTE | 2020-03-15 16:57 | NUR ---
Rehab Note- Acute Inpatient Rehab prescreen order received. The patient would be a good inpatient rehab cadidate if in agreeance with an inpatient acute rehab stay when medically stable and ready for discharge from the acute hospital. Thank you for this referral! Karol Hart RN Clinical Liaison, [facility] Re[facility]
--- NOTE | 2020-03-15 18:36 | NUR ---
PATIENTS CALLED TO CHECK ON HIM, PATIENT RESTING WITH EYES CLOSED. NO DISTRESS. CALL LIGHT WITHIN REACH. WILL RETURN IN AM.
--- NOTE | 2020-03-15 19:58 | NUR ---
RECEIVED BEDSIDE SHIFT REPORT. UP IN BED WITH EYES OPEN AND TV ON. ALERT AND ORIENTED. REQUESTING A BATH. REFUSES TO LET THIS NURSE GIVE HIM A BATH. ASKED IS'NT THERE A HEAVY THREADER. EXPLAINED THST I WAS THE HEAVY THREADER AND HIS NURSE. VERY CAPABLE OF GIVING HIM A SHOWER. CONT TO REFUSE AND STATED "THAT'S NOT RIGHT FOR THEM TO DO YOU THAT WAY". EXPLAINED IT IS OKAY AND I DIDNT MIND AT ALL. CONT TO REFUSE AND BECAME UPSET TO ALMOST TEARS. IV TO LT FA ABHISHEK. TELEMETRTY IN PLACE.
[2020-03-15 20:00] VITALS: BP 134/59
[2020-03-16 00:30] VITALS: BP 127/58
[2020-03-16 04:30] VITALS: BP 137/60
[2020-03-16 05:16] LABS: BASOPHILS 0.2 % (0-2); EOSINOPHILS 0.7 % (0-7); HEMATOCRIT 27.8 % (42.0-54.0); HEMOGLOBIN 8.9 g/dL (13.5-17.5); IMMATURE GRANULOCYTES 0.7 % (0-5); LYMPHOCYTES 35.8 % (15-50); MCH 30.8 pg (26.0-34.0); MCV 96.2 fL (80.0-100.0); MEAN PLATELET VOLUME 10.9 fL (7.4-10.4); MONOCYTES 15.1 % (2-11); NEUTROPHILS 47.5 % (40-80); PLATELET COUNT 129 10x3/uL (130-400); RBC 2.89 10x6/uL (4.20-6.10); RDW 15.3 % (11.5-14.5); WBC 4.2 10x3/uL (4.8-10.8)
[2020-03-16 05:48] LABS: ALBUMIN 1.9 g/dL (3.4-5.0); ALKALINE PHOSPHATASE 345 U/L (30-120); ALT (SGPT) 27 U/L (10-68); BILIRUBIN - TOTAL 0.62 mg/dL (0.2-1.3); CALC OSMOLALITY 276 mosm/kg (275-300); CALCIUM 8.1 mg/dL (8.5-10.1); CARBON DIOXIDE 30.1 mmol/L (21.0-32.0); CHLORIDE - SERUM 106 mmol/L (98-107); GLUCOSE 125 mg/dL (74-106); POTASSIUM - SERUM 3.6 mmol/L (3.5-5.1); PROTEIN - SERUM 4.9 g/dL (6.4-8.2); SODIUM 139 mmol/L (136-145); eGFR NON AFRICAN AMERICAN 78 mL/min (90-120)
[2020-03-16 05:50] LABS: UREA NITROGEN 8 mg/dL (7-18)
--- NOTE | 2020-03-16 07:00 | NUR ---
RECEIVED REPORT. ASSUMED CARE OF PATIENT. CALL LIGHT WITHIN REACH. BEDSIDE SHIFT REPORT COMPLETED. WHITE BOARD UPDATED. PATIENT LYING IN BED WITH EYES CLOSED, EASILY AROUSED. DENIES NEEDS. STATES HE IS TIRED, HE HAD AN EXHAUSTING NIGHT. NO DISTRESS. ST ON TELEMETRY, RATE 105.
[2020-03-16 08:22] VITALS: BP 139/62
--- NOTE | 2020-03-16 11:27 | NUR ---
FSBS 238. 4 UNITS HUMULIN ADMINISTERED PER SLIDING SCALE.
[2020-03-16 12:17] VITALS: BP 131/54
--- NOTE | 2020-03-16 15:32 | NUR ---
RESTING WELL. NO DISTRESS. NO FAMILY AT BEDSIDE. CALL LIGHT WITHIN REACH.
[2020-03-16 15:45] VITALS: BP 143/72
--- NOTE | 2020-03-16 16:33 | NUR ---
FSBS 185. 2 UNITS HUMULIN INSULIN ADMINISTERED PER SLIDING SCALE.
--- NOTE | 2020-03-16 20:09 | NUR ---
RECEIVED BEDSIDE SHIFT REPORT. ALERT AND ORIENTED X2. REMANS BEDFAST. IV TO LT FA WITH DSG INTACT. TELEMETRY IN PLACE. BILATERAL LOWER EXTREMITIES LOOK BETTER TODAY. CONT TO BE DIRK WITH GENERALIZE SWELLING. NOT WARM. DENIES ANY NEEDS AT THIS TIME.
[2020-03-16 20:30] VITALS: BP 141/62
[2020-03-17 00:30] VITALS: BP 120/60
[2020-03-17 04:30] VITALS: BP 147/60
[2020-03-17 05:24] LABS: BASOPHILS 0 % (0-2); EOSINOPHILS 0.5 % (0-7); HEMATOCRIT 28.3 % (42.0-54.0); IMMATURE GRANULOCYTES 1.6 % (0-5); LYMPHOCYTES 34.5 % (15-50); MCH 30.7 pg (26.0-34.0); MCHC 31.8 g/dL (31.0-37.0); MCV 96.6 fL (80.0-100.0); NEUTROPHILS 47.4 % (40-80); PLATELET COUNT 138 10x3/uL (130-400); RBC 2.93 10x6/uL (4.20-6.10); RDW 15.3 % (11.5-14.5); WBC 4.3 10x3/uL (4.8-10.8)
[2020-03-17 06:04] LABS: ALBUMIN 1.9 g/dL (3.4-5.0); ALKALINE PHOSPHATASE 340 U/L (30-120); ALT (SGPT) 26 U/L (10-68); BILIRUBIN - TOTAL 0.58 mg/dL (0.2-1.3); CALC OSMOLALITY 273 mosm/kg (275-300); CALCIUM 8.1 mg/dL (8.5-10.1); CARBON DIOXIDE 29.9 mmol/L (21.0-32.0); CHLORIDE - SERUM 104 mmol/L (98-107); CREATININE - SERUM 0.9 mg/dL (0.6-1.3); GLUCOSE 141 mg/dL (74-106); POTASSIUM - SERUM 3.8 mmol/L (3.5-5.1); SODIUM 137 mmol/L (136-145); UREA NITROGEN 8 mg/dL (7-18); eGFR NON AFRICAN AMERICAN 89 mL/min (90-120)
--- NOTE | 2020-03-17 06:40 | NUR ---
PULLED IV OUT EARLIER THIS SHIFT. RESTARTED WITH 22GA ATTEMPTS X1. SL AT THIS TIME.
--- NOTE | 2020-03-17 07:30 | NUR ---
UPON WALKING INTO ROOM, PT RESTING, EYES CLOSED. RR EVEN AND UNLABORED ON 2L NC. BED IN LOWEST POSITION. YELLOW GOWN ON AND BED ALARM IN PLACE. CALL LIGHT WTIHIN REACH. WILL CONTINUE TO MONITOR.
--- NOTE | 2020-03-17 08:00 | NUR ---
CALL LIGHT ANSWERED. PT AT BEDSIDE. PT HAD REMOVED GOWN AND HAD URINATED ON GOWN AND SHEETS. CLEANED, LINENS AND GOWN CHANGED. PULLED UP IN BED AND REPOSITIONED TO COMFORT. CALL LIGHT WTIHIN REACH. BED IN LOWEST POSITION. WILL CONTINUE TO MONITOR.
--- NOTE | 2020-03-17 08:30 | NUR ---
UPON RECIEVING MEDICATIONS, PT STATED HE HAD TO TAKE THEM ONE AT A TIME. ATTEMPTED FIRST PILL WITH WATER, PT CHOKED AND WAS UNABLE TO GET IT DOWN. WAS ABLE TO GET X3 PILLS DOWN WITH PUDDING. UNABLE TO SWALLOW LAST PILL, CHOKED, SPIT IT OUT AND REFUSED TO TRY AGAIN. PT AND DENIES HIM HAVING ISSUES WITH THIS IN THE PAST. TAD GAINES PAGED AND NOTIFIED. ORDERS RECIEVED FOR GI CONSULT.
[2020-03-17 10:41] VITALS: BP 124/55
--- NOTE | 2020-03-17 12:33 | MORECARE ---
CASE MANAGEMENT DISCHARGE SUMMARY PATIENT: DEANA HUTSON UNIT: [id number] ADM DATE: 03/10/20 AGE: 69 : 49 SEX: M ROOM/BED: D.2104 AUTHOR: KOREY,DOC PHYSICIAN: REFERRING PHYSICIAN: HALLIE AREVALO MD DATE OF SERVICE: 03/17/20 Discharge Plan Patient Name: DEANA HUTSON Facility: [facility]:[place] : 1950 Planned Disposition: Home Anticipated Discharge Date: Discharge Date: Expected LOS: Initial Reviewer: [email or web address] Initial Review Date: 03/13/2020 Generated: 03/17/20 1:33 pm Comments DCP- Discharge Planning Updated by [email or web address]: Genevieve Castroaltagracia on 03/17/20 11:[address] CM met with patient and and they are in agreement to [facility] inpatient rehab. I called Karol and informed her. Plan for inpatient rehab at [facility] 03/18 per physician note. IMM explained, signed by , given and copy placed in MR. CM will continue to follow and assist with discharge planning/needs. DCP- Discharge Planning Updated by [id number]: Genevieve Savi on 03/13/20 1:[address] Patient Name: DEANA HUTSON Admission Status: ER Accout number: [id number] Admission Date: 03-10-2020 : 1950 Admission Diagnosis:TYPE 2 DIABETES MELLITUS WITH HYPOGLYCEMIA WITHOUT COMA Attending: HALLIE AREVALO Current LOS: 3 Anticipated DC Date: Planned Disposition: Home Primary Insurance: MEDICARE A & B Discharge Planning Comments: CM met with patient and spouse concerning discharge plans/needs. Patient lives in a 2 story house, but does not go upstairs. States they have a ramp to enter the home. He has 2 walker, 2 wheelchairs and an electric wheelchair. reports that she would like to see him get stronger before returning home with inpatient rehab. I spoke with the patient about this and informed him of concerns. He understands, but states he wants to go home with [facility]. States his physical therapist comes out twice a week and states he has been doing better. States he also has nursing come twice a week. He tells me he feels this is a safe discharge. He states he is able to transfer himself to the wheelchair to the chair and bed, etc. I discussed the availability of inpatient rehab, SNF, DME needs and hospice. His takes the list of hospice agencies from me. Patient states at this time, he is going to start chemo when oncology is ready and still wants to go home with home health services. CM will continue to follow and assist with discharge planning/needs. Broadband Installer: Genevieve Hou DCPIA - Discharge Planning Initial Assessment Updated by [email or web address]: Genevieve Hou on 03/13/20 2:01 pm * Is the patient Alert and Oriented? Yes * How many steps to enter\exit or inside your home? 0/1 FLIGHT * PCP Dr. Fletcher * Pharmacy [facility] on [address] * Preadmission Environment Home with Family * ADLs Partial Dependent * Partial ADLs (Assistance needed) Ambulation * Equipment Power Chair or Electric Scooter Walker Wheelchair * List name and contact numbers for known caregivers / representatives who currently or will assist patient after discharge: Tanisha Hutson - spouse - [phone] Home number - [phone] * Verbal permission to speak to the caregivers and representatives has been obtained from the patient. Yes * Community resources currently utilized Home Health * Please name any agencies selected above. [facility] * Additional services required to return to the preadmission environment? No * Can the patient safely return to the preadmission environment? Yes * Has this patient been hospitalized within the prior 30 days at any hospital? No Coverage Notice Reviewer: [id number] Ynes Hou Notice Issued Date-Time: 03/13/2020 14:14 Notice Type: Patient Choice Letter Notice Delivered To: Family Member Relationship to Patient: Spouse Coal Cager Name: Tanisha Hutson Delivery Method: HAND - Hand Delivered Bridgett Days: Prior Verbal Notification: Recipient Understood Notice: Yes Recipient Signature: Yes Med Rec Note Co-signed by Attending: Coverage Notice Comment: [facility] Reviewer: [email or web address] Ynes Hou Notice Issued Date-Time: 03/17/2020 12:23 Notice Type: IM Discharge Notice Notice Delivered To: Family Member Relationship to Patient: Spouse Coal Cager Name: Tanisha Hutson Delivery Method: HAND - Hand Delivered Bridgett Days: Prior Verbal Notification: Recipient Understood Notice: Yes Recipient Signature: Yes Med Rec Note Co-signed by Attending: Coverage Notice Comment: IMM explained, signed, given, copy placed in MR Reviewer: [id number] Ynes Hou Notice Issued Date-Time: 03/17/2020 12:23 Notice Type: Patient Choice Letter Notice Delivered To: Family Member Relationship to Patient: Spouse Coal Cager Name: Tanisha Hutson Delivery Method: HAND - Hand Delivered Bridgett Days: Prior Verbal Notification: Recipient Understood Notice: Yes Recipient Signature: Yes Med Rec Note Co-signed by Attending: Coverage Notice Comment: [facility] for [facility] Last DP export: 03/13/20 1:24 p Patient Name: DEANA HUTSON Page [id number] at 1233 All edits/amendments must be made on the electronic document DICTATION DATE: 03/17/20 1233 HOME CARE ASSOCIATE: ALEENA 03/17/20 1233 RPT#: [id number] DC DATE: STATUS: ADM IN [facility] [address] [place] [address] END OF REPORT
[2020-03-17 13:14] VITALS: BP 107/66
--- NOTE | 2020-03-17 15:06 | NUR ---
Right exterior ankle has 2cm x 2cm chronic nonhealing wound. The wound bed is covered with dry black eschar. No drainage is noted. Pt is using Santyl at home and going to the outpt wound clinic. Recommended continuing with the Santyl as patient's spouse just had the prescription filled. Buttocks/coccyx area is blanchable red - the entire area measures approximately 8cm x 6cm. 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 Pt spouse states pt sits on an inner tube at home and believes this injury is from the valve stem. There is also a small 1cm x 1cm open area on left buttock which is a stage 3 pressure injury. They are using desitin cream at home. Recommended calmoseptine cream and instructed pt to turn himself off of his bottom while in bed. He voiced his understanding. Wound care will monitor.
[2020-03-17 17:53] VITALS: BP 118/62
--- NOTE | 2020-03-17 18:36 | NUR ---
I have reviewed this patient and I concur with the Shift Assessment completed by the Licensed Practical Nurse today this shift.
[2020-03-17 20:00] VITALS: BP 130/57
[2020-03-18] VITALS: BP 131/50
--- NOTE | 2020-03-18 03:27 | NUR ---
I have reviewed this patient and I concur with the Shift Assessment completed by the Licensed Practical Nurse today this shift.
[2020-03-18 04:00] VITALS: BP 110/63
[2020-03-18 07:19] LABS: ALKALINE PHOSPHATASE 354 U/L (30-120); ALT (SGPT) 23 U/L (10-68); CALC OSMOLALITY 275 mosm/kg (275-300); CALCIUM 8.1 mg/dL (8.5-10.1); CARBON DIOXIDE 27.9 mmol/L (21.0-32.0); CHLORIDE - SERUM 104 mmol/L (98-107); CREATININE - SERUM 0.9 mg/dL (0.6-1.3); GLUCOSE 97 mg/dL (74-106); POTASSIUM - SERUM 3.9 mmol/L (3.5-5.1); PROTEIN - SERUM 4.7 g/dL (6.4-8.2); SODIUM 139 mmol/L (136-145); UREA NITROGEN 8 mg/dL (7-18); eGFR NON AFRICAN AMERICAN 89 mL/min (90-120)
[2020-03-18 07:35] LABS: BASOPHILS 0.2 % (0-2); EOSINOPHILS 0.8 % (0-7); HEMATOCRIT 28.5 % (42.0-54.0); HEMOGLOBIN 9.1 g/dL (13.5-17.5); IMMATURE GRANULOCYTES 1.5 % (0-5); LYMPHOCYTES 35.5 % (15-50); MCH 30.8 pg (26.0-34.0); MCHC 31.9 g/dL (31.0-37.0); MCV 96.6 fL (80.0-100.0); MEAN PLATELET VOLUME 10.9 fL (7.4-10.4); MONOCYTES 15.6 % (2-11); NEUTROPHILS 46.4 % (40-80); PLATELET COUNT 171 10x3/uL (130-400); RBC 2.95 10x6/uL (4.20-6.10); RDW 15.5 % (11.5-14.5); WBC 4.7 10x3/uL (4.8-10.8)
--- NOTE | 2020-03-18 08:37 | NUR ---
CALLED [facility] AND THEY STATE FOR BARIUM SWALLOW PT NEEDS TO BE NPO BUT CAN HAVE AM MEDS. I VERBALIZED UNDERSTANDING.
[2020-03-18 09:41] VITALS: BP 101/49
--- NOTE | 2020-03-18 12:39 | NUR ---
Nutrition Follow-up: PO intake remains poor. Noted MBSS ordered. Per wound care, pt with 2 cm x 2 cm chronic nonhealing wound on R exterior ankle and stage 3 pressure injuries to R & L buttock. Pt/ agreed to try Jose Eduardo BID to promote wound healing. -BM. Diet: Diabetic PO intake: 0-50% No new wt; last wt: 227# (03/11) Labs noted: Glu 97, Ca 8.1, Alb 2.0 Meds noted: Protonix, Miralax, Humulin, electrolyte protocol -Encourage PO intake and honor food preferences within diet restrictions. -+Jose Eduardo BID to promote wound healing. -Need new wt; noted daily wts ordered. -RD following.
--- NOTE | 2020-03-18 12:47 | NUR ---
SPOKE WITH [facility] PHARMACIST AND SHE STATES TO NOT GIVE VANC DOSE THAT IS DUE NOW. I VERBALIZED UNDERSTANDING.
[2020-03-18 13:32] VITALS: BP 123/57
--- NOTE | 2020-03-18 13:39 | NUR ---
I have reviewed this patient and I concur with the Shift Assessment completed by the Licensed Practical Nurse today this shift.
[2020-03-18] MEDS ORDERED: FEXOFENADINE HC60 MG PO (15:17)
[2020-03-18] MEDS ORDERED: BROVANA15 MCG/2 M INH (15:18)
[2020-03-18] MEDS ORDERED: NICODERM CQ1 EAC3 TRANSDERM (15:18)
[2020-03-18] MEDS ORDERED: CARDIZEM60 MG PO (15:18)
[2020-03-18] MEDS ORDERED: MIRALAX17 GM PO (15:19)
[2020-03-18] MEDS ORDERED: NEURONTIN 300300 MG PO (15:19)
[2020-03-18] MEDS ORDERED: CALMOSEPTINE OI71 GM TOPICAL (15:20)
[2020-03-18] MEDS ORDERED: DOXYCYCLINE HY100 M2 PO (15:21)
--- NOTE | 2020-03-18 15:46 | MORECARE ---
CASE MANAGEMENT DISCHARGE SUMMARY PATIENT: DEANA HUTSON UNIT: [id number] ADM DATE: 03/10/20 AGE: 69 : 49 SEX: M ROOM/BED: D.2104 AUTHOR: KOREYDOC PHYSICIAN: REFERRING PHYSICIAN: HALLIE AREVALO MD DATE OF SERVICE: 03/18/20 Discharge Plan Patient Name: DEANA HUTSON Facility: [facility]:[place] : 1950 Planned Disposition: Home Anticipated Discharge Date: Discharge Date: Expected LOS: Initial Reviewer: [email or web address] Initial Review Date: 03/13/2020 Generated: 03/18/20 4:45 pm Comments DCP- Discharge Planning Updated by [id number]: Genevieve Hou on 03/18/20 2:[address] Patient Name: DEANA HUTSON Encounter No: [id number] : 1950 Primary Insurance: MEDICARE A & B Anticipated DC Date: Planned Disposition: Home External Planned Provider: : DCP follow-up note: Patient and family in agreement with discharge plan. No changes to plan. Case management will follow and assist as needed. Genevieve Hou DCP- Discharge Planning Updated by [email or web address]: Genevieve Hou on 03/17/20 11:[address] CM met with patient and and they are in agreement to [facility] inpatient rehab. I called Karol and informed her. Plan for inpatient rehab at [facility] 03/18 per physician note. IMM explained, signed by , given and copy placed in MR. CM will continue to follow and assist with discharge planning/needs. DCP- Discharge Planning Updated by [email or web address]: Genevieve Hou on 03/13/20 1:[address] Patient Name: DEANA HUTSON Admission Status: ER Accout number: [id number] Admission Date: 03-10-2020 : 1950 Admission Diagnosis:TYPE 2 DIABETES MELLITUS WITH HYPOGLYCEMIA WITHOUT COMA Attending: HALLIE AREVALO Current LOS: 3 Anticipated DC Date: Planned Disposition: Home Primary Insurance: MEDICARE A & B Discharge Planning Comments: CM met with patient and spouse concerning discharge plans/needs. Patient lives in a 2 story house, but does not go upstairs. States they have a ramp to enter the home. He has 2 walker, 2 wheelchairs and an electric wheelchair. reports that she would like to see him get stronger before returning home with inpatient rehab. I spoke with the patient about this and informed him of concerns. He understands, but states he wants to go home with [facility]. States his physical therapist comes out twice a week and states he has been doing better. States he also has nursing come twice a week. He tells me he feels this is a safe discharge. He states he is able to transfer himself to the wheelchair to the chair and bed, etc. I discussed the availability of inpatient rehab, SNF, DME needs and hospice. His takes the list of hospice agencies from me. Patient states at this time, he is going to start chemo when oncology is ready and still wants to go home with home health services. CM will continue to follow and assist with discharge planning/needs. Sap Ppm Consultant: Genevieve Hou DCPIA - Discharge Planning Initial Assessment Updated by [email or web address]: Genevieve Hou on 03/13/20 2:01 pm * Is the patient Alert and Oriented? Yes * How many steps to enter\exit or inside your home? 0/1 FLIGHT * PCP Dr. Fletcher * Pharmacy [facility] [address] * Preadmission Environment Home with Family * ADLs Partial Dependent * Partial ADLs (Assistance needed) Ambulation * Equipment Power Chair or Electric Scooter Walker Wheelchair * List name and contact numbers for known caregivers / representatives who currently or will assist patient after discharge: Tanisha Hutson - spouse - [phone] Home number - [phone] * Verbal permission to speak to the caregivers and representatives has been obtained from the patient. Yes * Community resources currently utilized Home Health * Please name any agencies selected above. [facility] * Additional services required to return to the preadmission environment? No * Can the patient safely return to the preadmission environment? Yes * Has this patient been hospitalized within the prior 30 days at any hospital? No Coverage Notice Reviewer: [id number] - Genevieve Hou Notice Issued Date-Time: 03/13/2020 14:14 Notice Type: Patient Choice Letter Notice Delivered To: Family Member Relationship to Patient: Spouse Motor Equipment Captain Name: Tanisha Hutson Delivery Method: HAND - Hand Delivered Bridgett Days: Prior Verbal Notification: Recipient Understood Notice: Yes Recipient Signature: Yes Med Rec Note Co-signed by Attending: Coverage Notice Comment: [facility] Reviewer: [id number] Ynes Hou Notice Issued Date-Time: 03/17/2020 12:23 Notice Type: IM Discharge Notice Notice Delivered To: Family Member Relationship to Patient: Spouse Motor Equipment Captain Name: Tanisha Hutson Delivery Method: HAND - Hand Delivered Bridgett Days: Prior Verbal Notification: Recipient Understood Notice: Yes Recipient Signature: Yes Med Rec Note Co-signed by Attending: Coverage Notice Comment: IMM explained, signed, given, copy placed in MR Reviewer: [id number] Ynes Hou Notice Issued Date-Time: 03/17/2020 12:23 Notice Type: Patient Choice Letter Notice Delivered To: Family Member Relationship to Patient: Spouse Motor Equipment Captain Name: Tanisha Hutson Delivery Method: HAND - Hand Delivered Bridgett Days: Prior Verbal Notification: Recipient Understood Notice: Yes Recipient Signature: Yes Med Rec Note Co-signed by Attending: Coverage Notice Comment: KIERAN for [facility] Last DP export: 03/17/20 11:33 am Patient Name: DEANA HUTSON Page [id number] at 1546 All edits/amendments must be made on the electronic document DICTATION DATE: 03/18/201545 LABORER RAGS: ALEENA 03/18/20 154 RPT#: [id number] DC DATE: STATUS: ADM IN [facility] [address] [place] [address] END OF REPORT
--- NOTE | 2020-03-18 17:10 | NUR ---
REPORT CALLED TO ED [facility].
--- NOTE | 2020-03-18 17:19 | NUR ---
DISCHARGE INSTRUCTIONS GIVEN TO PT. PT HAS NO FURTHER QUESTIONS. CHART COPY SIGNED. LEFT FA 22G IV DC'D WITH CATH INTACT. TELEMETRY DC'D. PT TAKEN DOWN TO [facility] ROOM 1117-B VIA WITH ALL BELONGINGS.
--- NOTE | 2020-03-19 09:21 | MORECARE ---
CASE MANAGEMENT DISCHARGE SUMMARY PATIENT: DEANA HUTSON UNIT: [id number] ADM DATE: 03/10/20 AGE: 69 : 49 SEX: M ROOM/BED: D.2104 AUTHOR: KOREY,DOC PHYSICIAN: REFERRING PHYSICIAN: HALLIE AREVALO MD DATE OF SERVICE: 03/19/20 Discharge Plan Patient Name: DEANA HUTSON Facility: [facility]:[place] : 1950 Planned Disposition: Home Anticipated Discharge Date: Discharge Date: 03/18/2020 Expected LOS: Initial Reviewer: [id number] Initial Review Date: 03/13/2020 Generated: 03/19/20 10:21 am Comments DCP- Discharge Planning Updated by [id number]: Genevieve Hou on 03/18/20 2:[address] Patient Name: DEANA HUTSON Encounter No: [id number] : 1950 Primary Insurance: MEDICARE A & B Anticipated DC Date: Planned Disposition: Home External Planned Provider: : DCP follow-up note: Patient and family in agreement with discharge plan. No changes to plan. Case management will follow and assist as needed. Genevieve Hou DCP- Discharge Planning Updated by [id number]: Genevieve Hou on 03/17/20 11:[address] CM met with patient and and they are in agreement to [facility] inpatient rehab. I called Karol and informed her. Plan for inpatient rehab at [facility] 03/18 per physician note. IMM explained, signed by , given and copy placed in MR. CM will continue to follow and assist with discharge planning/needs. DCP- Discharge Planning Updated by [email or web address]: Genevieve Hou on 03/13/20 1:[address] Patient Name: DEANA HUTSON Admission Status: ER Accout number: [id number] Admission Date: 03-10-2020 : 1950 Admission Diagnosis:TYPE 2 DIABETES MELLITUS WITH HYPOGLYCEMIA WITHOUT COMA Attending: HALLIE AREVALO Current LOS: 3 Anticipated DC Date: Planned Disposition: Home Primary Insurance: MEDICARE A & B Discharge Planning Comments: CM met with patient and spouse concerning discharge plans/needs. Patient lives in a 2 story house, but does not go upstairs. States they have a ramp to enter the home. He has 2 walker, 2 wheelchairs and an electric wheelchair. reports that she would like to see him get stronger before returning home with inpatient rehab. I spoke with the patient about this and informed him of concerns. He understands, but states he wants to go home with [facility]. States his physical therapist comes out twice a week and states he has been doing better. States he also has nursing come twice a week. He tells me he feels this is a safe discharge. He states he is able to transfer himself to the wheelchair to the chair and bed, etc. I discussed the availability of inpatient rehab, SNF, DME needs and hospice. His takes the list of hospice agencies from me. Patient states at this time, he is going to start chemo when oncology is ready and still wants to go home with home health services. CM will continue to follow and assist with discharge planning/needs. Rn Procedure: Genevieve Hou DCPIA - Discharge Planning Initial Assessment Updated by [id number]: Genevieve Hou on 03/13/20 2:01 pm * Is the patient Alert and Oriented? Yes * How many steps to enter\exit or inside your home? 0/1 FLIGHT * PCP Dr. Fletcher * Pharmacy [facility] [address] * Preadmission Environment Home with Family * ADLs Partial Dependent * Partial ADLs (Assistance needed) Ambulation * Equipment Power Chair or Electric Scooter Walker Wheelchair * List name and contact numbers for known caregivers / representatives who currently or will assist patient after discharge: Tanisha Hutson - spouse - [phone] Home number - [phone] * Verbal permission to speak to the caregivers and representatives has been obtained from the patient. Yes * Community resources currently utilized Home Health * Please name any agencies selected above. [facility] * Additional services required to return to the preadmission environment? No * Can the patient safely return to the preadmission environment? Yes * Has this patient been hospitalized within the prior 30 days at any hospital? No Coverage Notice Reviewer: [id number] - Genevieve Hou Notice Issued Date-Time: 03/13/2020 14:14 Notice Type: Patient Choice Letter Notice Delivered To: Family Member Relationship to Patient: Spouse Safe [employer] Vault Service Mechanic Name: Tanisha Hutson Delivery Method: HAND - Hand Delivered Bridgett Days: Prior Verbal Notification: Recipient Understood Notice: Yes Recipient Signature: Yes Med Rec Note Co-signed by Attending: Coverage Notice Comment: [facility] Reviewer: [id number] Ynes Hou Notice Issued Date-Time: 03/17/2020 12:23 Notice Type: IM Discharge Notice Notice Delivered To: Family Member Relationship to Patient: Spouse [employer] Service Mechanic Name: Tanisha Hutson Delivery Method: HAND - Hand Delivered Bridgett Days: Prior Verbal Notification: Recipient Understood Notice: Yes Recipient Signature: Yes Med Rec Note Co-signed by Attending: Coverage Notice Comment: IMM explained, signed, given, copy placed in MR Reviewer: [id number] Ynes Hou Notice Issued Date-Time: 03/17/2020 12:23 Notice Type: Patient Choice Letter Notice Delivered To: Family Member Relationship to Patient: Spouse Safe And Vault Service Mechanic Name: Tanisha Hutson Delivery Method: HAND - Hand Delivered Bridgett Days: Prior Verbal Notification: Recipient Understood Notice: Yes Recipient Signature: Yes Med Rec Note Co-signed by Attending: Coverage Notice Comment: KIERAN for [facility] Last DP export: 03/18/20 2:46 pm Patient Name: DEANA HUTSON Page [id number] at 0921 All edits/amendments must be made on the electronic document DICTATION DATE: 03/19/20920 LEARNING FACILITATOR: ALEENA 03/19/20920 RPT#: [id number] DC DATE:03/18/20 STATUS: DIS IN [place] [id number] [place] [address] END OF REPORT
== END 2020-03-18 17:21 | DRG 638 ==
LOC: D.ER 11:08 → D.M2 12:36 → D.SDCHOLD 03-12 11:09 → D.M2 03-12 11:10
PROVIDERS: Family Medicine; ADMIT Internal Medicine Nephrology; ATTEND Internal Medicine Nephrology
DX: E11.628 Type 2 diabetes mellitus with other skin complications (principal); C79.31 Secondary malignant neoplasm of brain; L03.115 Cellulitis of right lower limb; C07 Malignant neoplasm of parotid gland; E11.649 Type 2 diabetes mellitus with hypoglycemia without coma; I25.10 Atherosclerotic heart disease of native coronary artery without angina pectoris; D53.9 Nutritional anemia, unspecified; E11.51 Type 2 diabetes mellitus with diabetic peripheral angiopathy without gangrene; J44.9 Chronic obstructive pulmonary disease, unspecified; S91.001A Unspecified open wound, right ankle, initial encounter; X58.XXXA Exposure to other specified factors, initial encounter; D69.6 Thrombocytopenia, unspecified; R13.12 Dysphagia, oropharyngeal phase

== ENCOUNTER 2020-03-18 18:00 | Inpatient (IN) | payer MEDICARE, OTHER ==
[~2020-03-18] VITALS: Ht 203.2 cm; Wt 102.5 kg
[~2020-03-18 18:00] MED LIST changes: +CALMOSEPTINE OI71 GM TOPICAL; +CYMBALTA60 MG PO; +DOXYCYCLINE HY100 M2 PO; +FEXOFENADINE HC60 MG PO; +NEURONTIN 300300 MG PO; +NEURONTIN800 MG PO; +NICODERM CQ1 EAC3 TRANSDERM
--- NOTE | 2020-03-18 19:15 | NUR ---
PT SITTING UP IN BED. CL IN REACH. DENIES NEEDS AT THIS TIME. BED IN LOW SIDE RAILS X2. A/O X3. RESP EVEN AND UNLABORED. LUNGS CLEAR. BOWEL ACTIVE X4. DRESSING TO RIGHT ANKLE. WILL CONTINUE TO MONITOR. BED ALARM ON.
[2020-03-18 20:59] VITALS: BP 125/50
[2020-03-18 22:59] VITALS: BP 125/50; BMI 24.8
--- NOTE | 2020-03-19 01:35 | NUR ---
BED ALARM WAS SOUNDING THIS NURSE WENT INTO ROOM AND FOUND PT LYING ON RIGHT SIDE ON FLOOR WITH URINAL LYING NEXT TO PATIENT AND URINE ON FLOOR. PT IS CONFUSED AND WAS CONFUSED BEFORE EVENT HAPPENED. CL WAS IN REACH. NON SLIP SOCKS WAS ON. ALL FALL PRECAUTIONS WERE IN PLACE. PT HAD SCAB ON LEFT KNEE THAT REOPENED WHEN PT FELL. BAND AID APPLIED. NO OTHER INJURIES NOTED. NOTIFIED DR. SCOTT AND FAMILY. PT PLACED BACK IN BED. DENIES NEEDS AT THIS TIME. WILL CONTINUE TO MONITOR.
[2020-03-19 07:22] LABS: BASOPHILS 0.4 % (0-2); EOSINOPHILS 0.9 % (0-7); HEMATOCRIT 28.9 % (42.0-54.0); HEMOGLOBIN 9.2 g/dL (13.5-17.5); IMMATURE GRANULOCYTES 2.4 % (0-5); LYMPHOCYTES 37.2 % (15-50); MCH 30.7 pg (26.0-34.0); MCHC 31.8 g/dL (31.0-37.0); MCV 96.3 fL (80.0-100.0); MEAN PLATELET VOLUME 10.6 fL (7.4-10.4); MONOCYTES 17.1 % (2-11); PLATELET COUNT 187 10x3/uL (130-400); RDW 15.5 % (11.5-14.5); WBC 4.6 10x3/uL (4.8-10.8)
[2020-03-19 07:35] LABS: CALC OSMOLALITY 283 mosm/kg (275-300); CALCIUM 8.4 mg/dL (8.5-10.1); CARBON DIOXIDE 32.6 mmol/L (21.0-32.0); CHLORIDE - SERUM 106 mmol/L (98-107); CREATININE - SERUM 0.9 mg/dL (0.6-1.3); GLUCOSE 141 mg/dL (74-106); POTASSIUM - SERUM 3.7 mmol/L (3.5-5.1); SODIUM 142 mmol/L (136-145); UREA NITROGEN 10 mg/dL (7-18); eGFR NON AFRICAN AMERICAN 89 mL/min (90-120)
[2020-03-19 08:00] VITALS: BP 138/66
--- NOTE | 2020-03-19 08:00 | NUR ---
SHIFT ASSMT COMPLETED.CL IN REACH.BREAKFAST GIVEN.
--- NOTE | 2020-03-19 12:00 | NUR ---
SITTING UP IN WC.LUNCH GIVEN.
[2020-03-19 13:30] VITALS: Ht 203.2 cm; Wt 102.5 kg
--- NOTE | 2020-03-19 16:35 | NUR ---
CARE TEAM MEETING: PATIENT IS NEW TO UNIT AND WILL BE RA AT NEXT MEETING. WILL CONTINUE TO FOLLOW WITH PATIENT.
--- NOTE | 2020-03-19 20:10 | NUR ---
AWAKE AND ALERT. RESTING IN BED WITH RESPIRATIONS UNLABORED. DRESSING TO RIGHT ANKLE INTACT. NO DISTRESS NOTED. CALL LIGHT IN REACH.
[2020-03-19 23:05] VITALS: BP 105/51
--- NOTE | 2020-03-20 02:03 | NUR ---
SLEEPING WITH RESPIRATIONS UNLABORED. NO DISTRESS NOTED.
--- NOTE | 2020-03-20 05:03 | NUR ---
QUIET HOURS. NO ACUTE CHANGES IN CONDITION THIS SHIFT. RESTING IN BED WITH NO DISTRESS NOTED.
[2020-03-20 08:00] VITALS: BP 152/65
--- NOTE | 2020-03-20 11:57 | NUR ---
PATIENT ADMITTED TO REHAB FROM ACUTE FLOOR. DR. SCOTT IS HIS PCP. HE GOES TO [facility] FOR HIS CANCER TREATMENTS. HE IS A CLIENT OF [facility] . DME AT HOME IS WALKER, WHEELCHAIR AND ELECTRIC WHEELCHAIR. DISCHARGE PLANS ARE FOR PATIENT TO RETURN HOME WITH HIS SPOUSE. WILL CONTINUE TO FOLLOW WITH PATIENT.
--- NOTE | 2020-03-20 19:16 | NUR ---
AWAKE AND ALERT. RESTING IN BED WITH RESPIRATIONS UNLABORED. DRESSING INTACT TO RIGHT ANKLE. NO DISTRESS NOTED.
[2020-03-20 21:53] VITALS: BP 120/52
--- NOTE | 2020-03-21 00:31 | NUR ---
SLEEPING WITH RESPIRAITONS UNLABORED. NO DISTRESS NOTED. CALL LIGHT IN REACH.
--- NOTE | 2020-03-21 05:12 | NUR ---
QUIET HOURS, ASSISTED TO BATHROOM AND BACK TO BED. RESPIRATIONS UNLABORED. NO DISTRESS NOTED.
[2020-03-21 08:00] VITALS: BP 133/62
[2020-03-21 08:27] LABS: MCHC 32.1 g/dL (31.0-37.0); MCV 96.6 fL (80.0-100.0); MEAN PLATELET VOLUME 10.1 fL (7.4-10.4); RDW 15.6 % (11.5-14.5); WBC 5.3 10x3/uL (4.8-10.8)
[2020-03-21 08:41] LABS: ANION GAP 7.1 mmol/L (8-16); CALCIUM 8.6 mg/dL (8.5-10.1); CARBON DIOXIDE 31.5 mmol/L (21.0-32.0); CREATININE - SERUM 1.4 mg/dL (0.6-1.3); POTASSIUM - SERUM 3.6 mmol/L (3.5-5.1)
[2020-03-21 08:43] LABS: PLATELET COUNT 247 10x3/uL (130-400)
--- NOTE | 2020-03-21 08:54 | RHP ---
PATIENT: DEANA DUCKWORTH MEDICAL RECORD: [id number] ACCOUNT: [id number] LOCATION:[facility] : [birth year] ADMISSION DATE: 03/18/20 REHABILITATION HISTORY AND PHYSICAL EXAMINATION POST ADMISSION PHYSICIAN EXAMINATION ADMITTING DIAGNOSIS: Disuse myopathy. HISTORY OF PRESENT ILLNESS: The patient is a 69-year-old gentleman who presented to the ED with hypoglycemia. He has been on steroid therapies, complaining of a 3-day history of redness to his lower extremities. He was started on steroids tapering dose, placed on hypoglycemic protocol. 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 PT eval has been done. He has got some oropharyngeal dysphagia. He has completed radiation therapy for parotid cancer with brain mets. He is receiving PT during his hospital stay, he has been progressing slowly. He is noted to have difficulty with ambulation, lower extremity weakness. He needs to be monitored cardiac-guzman during his stay because of some tachycardia, pain control, medication adjustments, O2 requirements. He is having some cognition problems secondary to his metastatic brain cancer. His is somewhat debilitating, cannot take care of him at home at this time. He has got decreased activity tolerance, impaired mobility, decreased quality of life, decreased range of motion, gait disturbance, medical complexities, risk for falls, he has got unsteady gait and balance, he needs cues for equipment, he has got low endurance, fatigues easily, he has got inability to care for himself and self-care deficits. These are all barriers to his discharge to home. He lives at home with his . Was independent with ADLs and mobility prior to this. Currently set up for mod assist for ADLs, mod assist to max assist with his mobility. He would like to return home at his prior level of functioning or better. COMORBIDITIES: Include oropharyngeal dysphagia, weakness, hypoglycemia, diabetic complications, macrocytic anemia, parotid cancer with brain mets, cellulitis, thrombocytopenia, and anemia of chronic disease. PAST MEDICAL HISTORY: Significant for CVA, diabetes, got a history of coronary artery disease, prostate cancer, eating disorder, and dysphagia. PAST SURGICAL HISTORY: Includes knee back, shoulder, prostatectomy. He has had bilateral cataracts, carotid and knee. ALLERGIES: DILAUDID, BACLOFEN, PENICILLIN AND ADHESIVE TAPE. CURRENT MEDICATIONS: Include Floranex daily. He is on Silvadene daily, MiraLax daily, nicotine patch daily, Flonase nasal spray daily. He is on Cymbalta 60 mg daily, B12 5000 mcg daily, Plavix 75 mg daily, Atrovent updrafts daily, Brovana 15 mcg b.i.d., budesonide 0.5 mg b.i.d. He is on Protonix 40 mg daily, Pamelor 75 mg at bedtime along with melatonin 9 mg. He is on a low-resistant sliding scale with regular insulin, Neurontin 300 at bedtime, Ainsley 60 mg b.i.d., doxycycline 100 mg b.i.d., diltiazem 60 mg b.i.d. He is on a glucose replacement protocol. He is on tizanidine as needed for muscle spasms 4 mg b.i.d. He is on Compazine as needed for nausea and vomiting, Percocet 10/325 one tab q.4 hours p.r.n. He is on Tylenol as needed. HISTORY AND PHYSICAL [id number] DEANA DUCKWORTH HABITS: No current alcohol or tobacco use. FAMILY HISTORY: Noncontributory. SOCIAL HISTORY: The patient hopes to return back home and get back to his prior level of functioning. REVIEW OF SYSTEMS: GENERAL: Does complain of some weakness and fatigue. HEENT: Denies cold, cough, or congestion. CARDIOVASCULAR: He denies any chest pain. PHYSICAL EXAMINATION: VITAL SIGNS: Stable, afebrile. GENERAL: A very tall gentleman who is in no acute distress, alert upon exam, although slow to mentate. He does have areas along his bales region that appear red and indurated. HEENT: Normocephalic and atraumatic. Mucosa moist. NECK: Supple, with no lymphadenopathy. LUNGS: Clear at this time. No wheezing, rhonchi, or rales. HEART: Regular rate and rhythm. No murmurs, rubs or gallops. ABDOMEN: Soft, benign, and nondistended. Positive bowel sounds times 4. EXTREMITIES: No clubbing, cyanosis. He does have mild edema and redness below his knees. NEUROLOGIC: He has got noted muscular wasting and decreased strength in his muscles of his upper arms and his thighs. LABORATORY DATA: His white count 4.6, H&H 9.2 and 28.9, and platelet count is noted to be 187. Sodium 142, potassium 3.7, BUN and creatinine of 10 and 0.9, and blood sugar is noted to be 141. ASSESSMENT: This is a 77-year-old gentleman admitted to the rehab with a working diagnosis of disuse atrophy. The patient has potential to make improvement. We will institute the following multidisciplinary therapies include, but not limited to physical, occupational, respiratory, speech, nutritional services, prosthetics and orthotics. Given his complex medical condition and risks for more complications, rehabilitation services cannot be provided at a low level of care such a skilled nurse facility. PLAN: 1. Admit to [facility] for an inpatient therapy to include the following disciplines: A. Physical therapy to improve gait, all transfer skills and bed mobility to a modified independent level. B. Occupational therapy to improve activities of daily living. C. Case management to assist with discharge planning and placement options. D. Nutrition to assist with nutritional needs. E. Rehabilitation nursing to assist in monitoring the patient's underlying medical conditions and to assist with any type of bowel or bladder management. 2. The patient's current medication and medical care will be continued. 3. The patient will be placed on standard fall precautions. 4. We will adjust medications as needed. I am going to discuss with care team today at noon and I will see again in the a.m. TRANSINT:[id number] Voice Confirmation ID: [id number] DOCUMENT ID: [id number] HISTORY AND PHYSICAL [id number] DEANA DUCKWORTH notes whether there has been none or any medical/functional change since admission: - No change since prescreen. CARLA attests patient continues to be appropriate for IRF: - Continues to be appropriate. MIGUELITO SCOTT MD at 0854 CC: [id number] DICTATION DATE: 03/19/20920 STANDPIPE TENDER: 03/19/20 0948 [place] [address]
[2020-03-21 09:39] LABS: ANISOCYTOSIS OCC; LYMPHOCYTES 30 % (15-50); MONOCYTES 17 % (2-11); NEUTROPHILS 49 % (40-80); PLATELET ESTIMATE NORMAL
--- NOTE | 2020-03-21 10:10 | NUR ---
WOUND TO RT ANKLE IS APPX QUARTER SIZE WITH BLACK NON STAGEABLE CENTER. THE EDGES OF THE SKIN ARE CURLING OVER WOUND. HAS SMALL BLACKISH SPOTS ON END OF OTHER TOES ON OTHER FOOT (TOES 2ND, 3RD).
--- NOTE | 2020-03-21 10:26 | NUR ---
SITTING IN WC IN THERAPY GYM
--- NOTE | 2020-03-21 11:43 | NUR ---
WALKING IN [place] WITH THERAPY
--- NOTE | 2020-03-21 15:01 | NUR ---
Nutrition Follow-up: Diet: Diabetic + Glucerna TID + Jose Eduardo BID PO intake: 75% breakfast, no other meals recorded into flowsheet; he states that his appetite varies depending on what is being served. He states that he has been drinking the Glucerna shakes and I only noted one unopened bottle on bedside tray. He is not drinking Jose Eduardo and requested that I remove them. Last BM: 03/15/20 as recorded x 6 days now. WT: 226# (03/19/20) Meds noted: miralax, SSI. Labs noted: POC Glu 193(H) Continues with unstagable wounds. Recommend continue current diet. Encouraged PO intake. Continue with Glucerna oral nutrition supplement. Will discontinue Jose Eduardo. RD following.
--- NOTE | 2020-03-21 19:15 | NUR ---
AWAKE AND ALERT. RESTING IN BED WITH RESPIRATIONS UNLABORED. DRESSING INTACT TO RIGHT ANKLE. NO ACUTE DISTRESS NOTED. CALL LIGHT IN REACH.
[2020-03-21 19:37] VITALS: BP 114/60
--- NOTE | 2020-03-22 00:46 | NUR ---
SLEEPING WITH RESPIRATIONS UNLABORED. NO DISTRESS NOTED.
--- NOTE | 2020-03-22 05:19 | NUR ---
QUIET HOURS. NO ACUTE CHANGES IN CONDITION THIS SHIFT. RESPIRATIONS UNLABORED.
[2020-03-22 08:00] VITALS: BP 120/54
--- NOTE | 2020-03-22 18:31 | NUR ---
PASSED A FEW SMALL PIECES OF HARD STOOL. FINALLY AGREED TO HAVE SUPPISITORY INSERTED. WAITING ON RESULTS. CALL LIGHT IN REACH
--- NOTE | 2020-03-22 18:45 | NUR ---
BEDSIDE REPORT COMPLETE. PT SITTING UP IN BED WATCHING TV. ALERT AND ORIENTED X4. DENIES ANY NEEDS OR PAIN. NO SIGNS OF ACUTE DISTRESS NOTED. CALL LIGHT WITHIN REACH. BED ALARM ON. CPOC
[2020-03-22 20:20] VITALS: BP 128/62
--- NOTE | 2020-03-23 00:26 | NUR ---
PT LYING IN BED EYES CLOSED RESTING. RR EVEN AND UNLABORED. CALL LIGHT WITHIN REACH. FALL PRECAUTIONS IN PLACE. CPOC
--- NOTE | 2020-03-23 02:25 | NUR ---
ASSISTED PT TO RESTROOM WITH MOD ASSIST. INSTRUCTED TO PULL NURSE CORD WHEN READY. PT VERBALIZED UNDERSTANDING.
--- NOTE | 2020-03-23 02:35 | NUR ---
ASSISTED PT WITH TRANSFER FROM TOILET TO W/C WITH MOD ASSIST. PT BACK IN BED. DENIES ANY OTHER NEEDS OR PAIN. NO SIGNS OF ACUTE DISTRESS NOTED. CALL LIGHT WITHIN REACH. BED ALARM ON. CPOC
--- NOTE | 2020-03-23 05:39 | NUR ---
PT LYING IN BED EYES CLOSED RESTING. RR EVEN AND UNLABORED. CALL LIGHT WITHIN REACH. BED ALARM ON. CPOC
[2020-03-23 08:00] VITALS: BP 129/65
--- NOTE | 2020-03-23 11:57 | NUR ---
RESTING QUIETLY IN BED. EYES CLOSED. NO S/S DISTRESS. REFUSED BREAKFAST EARLIER. EASILY WAKES AND ANSWERS QUESTIONS CORRECTLY BUT IS NOT TALKATIVE AND SAID HE WAS "JUST TIRED". CALL LIGHT IN REACH. BED IN LOWEST POSITION. HEAD OF BED UP AND PILLOWS SUPPORT HE HEAD. HE DOES NOT STRAIGHTEN HIS HEAD UP BUT KEEPS IT POINTING DOWN ALL THE TIME.
--- NOTE | 2020-03-23 13:09 | NUR ---
FAMILY HERE VISITING WITH PT AND PUSHING HIM AROUND. HE DENIES INCREASED PAIN AND IS MORE INTERACTIVE WITH FAMILY. ATE 75% OF PIE FOR LUNCH AND THAT WAS ALL. APPETITE STILL POOR.
--- NOTE | 2020-03-23 14:18 | NUR ---
PT REFUSED SHOWER. NURSE ENCOURAGED HIM AND EXPLAINED HE WOULD NOT GET BATH TILL DAY AFTER TOMORROW. HE STILL DECLINED. HE INSISITED ON GOING BACK TO BED. NURSE EXPLAINED BY TUESDAY MORNING HE WILL HAVE SPENT APPX 43/48 HOURS IN BED AND THAT WAS NOT HELPING HIM GET STRONGER. HE STILL INSISTED IN GETTING IN BED.
--- NOTE | 2020-03-23 18:40 | NUR ---
BEDSIDE REPORT COMPLETE. PT SITTING UP IN BED WATCHING TV. ALERT AND ORIENTED X4. DENIES ANY NEEDS OR PAIN. NO SIGNS OF ACUTE DISTRESS NOTED. RIGHT ANKLE DRESSING C/D/I. CALL LIGHT AND WATER WITHIN REACH. BED ALARM ON. CPOC
[2020-03-23 20:24] VITALS: BP 129/61
--- NOTE | 2020-03-23 22:32 | NUR ---
PT LYING IN BED EYES CLOSED RESTING. RR EVEN AND UNLABORED. CALL LIGHT WITHIN REACH. BED ALARM ON. WILL CONTINUE TO MONITOR
--- NOTE | 2020-03-24 00:46 | NUR ---
PT LYING IN BED EYES CLOSED RESTING. RR EVEN AND UNLABORED. CALL LIGHT WITHIN REACH. FALL PRECAUTIONS IN PLACE. CPOC
--- NOTE | 2020-03-24 03:20 | NUR ---
PT LYING IN BED ON LEFT SIDE EYES CLOSED RESTING. RR EVEN AND UNLABORED. CALL LIGHT WITHIN REACH. BED ALARM ON. CPOC
[2020-03-24 07:02] LABS: BASOPHILS 0.3 % (0-2); EOSINOPHILS 0.4 % (0-7); HEMATOCRIT 30.3 % (42.0-54.0); HEMOGLOBIN 9.7 g/dL (13.5-17.5); IMMATURE GRANULOCYTES 2.9 % (0-5); LYMPHOCYTES 37.7 % (15-50); MCH 31.5 pg (26.0-34.0); MCV 98.4 fL (80.0-100.0); MEAN PLATELET VOLUME 10.1 fL (7.4-10.4); MONOCYTES 17.3 % (2-11); NEUTROPHILS 41.4 % (40-80); RBC 3.08 10x6/uL (4.20-6.10); RDW 16.2 % (11.5-14.5); WBC 7.5 10x3/uL (4.8-10.8)
[2020-03-24 07:12] LABS: PLATELET COUNT 309 10x3/uL (130-400)
[2020-03-24 07:14] LABS: ANION GAP 9.3 mmol/L (8-16); CALCIUM 8.6 mg/dL (8.5-10.1); CARBON DIOXIDE 29.6 mmol/L (21.0-32.0); CREATININE - SERUM 1.3 mg/dL (0.6-1.3); POTASSIUM - SERUM 3.9 mmol/L (3.5-5.1)
[2020-03-24 08:00] VITALS: BP 134/56
--- NOTE | 2020-03-24 15:15 | NUR ---
RESTING QUIETLY IN BED. STATES HE JUST FEELS TIRED. HAS C/O PAIN TO HIS LEFT SIDE OF HIS CHEST TODAY, PAIN MEDS RELIEVE PAIN. DENIES SHOULDER, JAW, STOMACH PAIN. DENIES FEELING LIKE PRESSURE ON CHEST. JUST SHARP PAIN AT TIMES TO LEFT CHEST. DENIES SOB.
--- NOTE | 2020-03-24 19:30 | NUR ---
AWAKE AND ALERT. RESTING IN BED WITH RESPIRATIONS UNLABORED. NO DISTRESS NOTED. CALL LIGHT IN REACH.
[2020-03-24 21:26] VITALS: BP 140/58
--- NOTE | 2020-03-25 01:05 | NUR ---
SLEEPING WITH NO DISTRESS NOTED. RESPIRATIONS UNLABORED.
--- NOTE | 2020-03-25 01:40 | NUR ---
ASSISTED TO BATHROOM AND BACK TO BED. MEDICATED FOR C/O PAIN. SEE MAR.
--- NOTE | 2020-03-25 05:08 | NUR ---
QUIET HOURS. HAS HAD SOME PAIN THIS SHIFT. SLEPT AT INTERVALS. RESTING NOW WITH NO DISTRESS NOTED.
[2020-03-25 08:00] VITALS: BP 171/57
--- NOTE | 2020-03-25 13:39 | NUR ---
I have reviewed this patient and I concur with the Shift Assessment completed by the Licensed Practical Nurse today this shift.
--- NOTE | 2020-03-25 14:11 | NUR ---
Nutrition Follow-up: Diet: Diabetic + Glucerna with meals PO intake: none recorded but reports that his appetite is improving. He had not eaten lunch at time of my visit. States that he is drinking Glucerna. Last BM: 03/23/20. WT: 226# (03/19/20) Meds noted: miralax, SSI. 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 Encouraged PO intake and will continue to honor food preferences. Continue oral nutrition supplements. RD following.
--- NOTE | 2020-03-25 19:09 | NUR ---
AWAKE AND ALERT. RESTING IN BED WITH RESPIRATIONS UNLABORED. DRESSING INTACT TO RIGHT ANKLE. NO ACUTE DISTRESS NOTED. CALL LIGHT IN REACH.
[2020-03-25 21:18] VITALS: BP 136/57
--- NOTE | 2020-03-25 23:58 | NUR ---
SLEEPING WITH RESPIRATIONS UNLABORED. NO DISTRESS NOTED.
--- NOTE | 2020-03-26 04:56 | NUR ---
QUIET HOURS. NO ACUTE CHANGES IN CONDITION THIS SHIFT. RESTING IN BED WITH RESPIRATIONS UNLABORED. NO DISTRESS NOTED.
[2020-03-26 06:27] LABS: BASOPHILS 0.5 % (0-2); EOSINOPHILS 0.9 % (0-7); HEMATOCRIT 28.5 % (42.0-54.0); HEMOGLOBIN 8.9 g/dL (13.5-17.5); IMMATURE GRANULOCYTES 2.6 % (0-5); LYMPHOCYTES 34.5 % (15-50); MCH 30.7 pg (26.0-34.0); MCHC 31.2 g/dL (31.0-37.0); MCV 98.3 fL (80.0-100.0); MEAN PLATELET VOLUME 9.8 fL (7.4-10.4); MONOCYTES 19.4 % (2-11); NEUTROPHILS 42.1 % (40-80); PLATELET COUNT 315 10x3/uL (130-400); RDW 16.1 % (11.5-14.5); WBC 6.5 10x3/uL (4.8-10.8)
[2020-03-26 06:51] LABS: ANION GAP 6.2 mmol/L (8-16); CARBON DIOXIDE 32.8 mmol/L (21.0-32.0); CREATININE - SERUM 1.5 mg/dL (0.6-1.3)
[2020-03-26 08:00] VITALS: BP 96/53
--- NOTE | 2020-03-26 10:07 | NUR ---
SITTING UP IN WC IN ROOM. USES HIS BLE TO ROLL AROUND IN ROOM. DENIES INCREASED DISCOMFORT OR CHEST PAIN. DENIES SOB. ABLE TO REACH CALL LIGHT.
--- NOTE | 2020-03-26 18:50 | NUR ---
BEDSIDE REPORT COMPLETE. PT LYING IN BED. ALERT AND ORIENTED X4. DENIES ANY NEEDS OR PAIN. NO SIGNS OF ACUTE DISTRESS NOTED. RIGHT ANKLE DRESSING INTACT. CALL LIGHT WITHIN REACH. BED ALARM ON. CPOC
[2020-03-26 21:10] VITALS: BP 120/73
--- NOTE | 2020-03-26 23:04 | NUR ---
PT LYING IN BED EYES CLOSED RESTING COMFORTABLY. RR EVEN AND UNLABORED. CALL LIGHT WITHIN REACH. BED ALARM ON. WILL CONTINUE TO MONITOR
--- NOTE | 2020-03-27 01:11 | NUR ---
I have reviewed this patient and I concur with the Shift Assessment completed by the Licensed Practical Nurse today this shift.
--- NOTE | 2020-03-27 02:40 | NUR ---
PT LYING IN BED LEFT SIDE EYES CLOSED RESTING. RR EVEN AND UNLABORED. CALL LIGHT WITHIN REACH. BED ALARM ON. WILL CONTINUE TO MONITOR
--- NOTE | 2020-03-27 06:38 | NUR ---
FSBS 166 ASSISTED PT TO RESTROOM AND BACK TO BED WITH MOD ASSIST. DENIES ANY OTHER NEEDS OR PAIN. RR EVEN AND UNLABORED. CALL LIGHT WITHIN REACH. BED ALARM ON. WILL CONTINUE TO MONITOR
[2020-03-27 08:00] VITALS: BP 104/55
[2020-03-27] MEDS ORDERED: PERCOCET 10-321 EAC1 PO (08:13)
--- NOTE | 2020-03-27 10:43 | NUR ---
IS MORE CONFUSED AND SLOWER TO FOLLOW COMMANDS OR ANSWER QUESTIONS THIS MORNING. DR SCOTT NOTIFIED. CT OF HEAD WITH OUT CONTRAST ORDERED
--- NOTE | 2020-03-27 15:13 | NUR ---
RESTING IN BED QUIETLY. NO S/S DISTRESS. EASY TO AROUSE BUT STILL CONFUSED AND SLOW TO ANSWER QUESTIONS.
--- NOTE | 2020-03-27 16:52 | NUR ---
SPOKE WITH AT LENGTH ABOUT PT'S CONDITION AND HIS APPARENT DECLINE TODAY. SHE IS AWARE OF HIS WEAKNESS. SHE NOTES A RED AREA ON CHIN/NECK AREA THAT APPEARS TO BE GROWING. SHE SAYS THAT IS WHAT HAPPENED WHEN HE WAS FIRST DX LAST YEAR. SHE SAID HE HAS MISSED HIS CHEMO TREATMENTS DUE TO BEING IN HOSPITAL BUT [facility] WOULD NOT ACCEPT HIM RIGHT NOW DUE TO HIS WEAKNESS. HE IS TOO WEAK TO GO HOME SAFELY AND SHE IS AFRAID SHE CAN NOT MEET HIS NEEDS. HE IS MORE CONFUSED TODAY AND APPEARS INCREASINGLY WEAK.
--- NOTE | 2020-03-27 18:45 | NUR ---
BEDSIDE REPORT COMPLETE. PT LYING IN BED ON LEFT SIDE EYES CLOSED RESTING. ALERT AND ORIENTED X3. DENIES ANY NEEDS OR PAIN. NO SIGNS OF ACUTE DISTRESS NOTED. CALL LIGHT WITHIN REACH. BED ALARM ON. CPOC
[2020-03-27 19:00] VITALS: BP 140/63
--- NOTE | 2020-03-27 23:43 | NUR ---
PT LYING IN BED ON LEFT SIDE EYES CLOSED RESTING QUIETLY. RR EVEN AND UNLABORED. CALL LIGHT WITHIN REACH. BED ALARM ON. WILL CONTINUE TO MONITOR
--- NOTE | 2020-03-28 02:26 | NUR ---
PT LYING IN BED EYES CLOSED RESTING QUIETLY. RR EVEN AND UNLABORED. CALL LIGHT WITHIN REACH. BED ALARM ON. WILL CONTINUE TO MONITOR
--- NOTE | 2020-03-28 04:34 | NUR ---
PT LYING IN BED ON LEFT SIDE EYES CLOSED RESTING. RR EVEN AND UNLABORED. CALL LIGHT WITHIN REACH. BED ALARM ON. WILL CONTINUE TO MONITOR
[2020-03-28 07:49] VITALS: BP 149/65
--- NOTE | 2020-03-28 10:27 | NUR ---
DUE TO CHANGE IN MEDICAL CONDTION PATIENT DISCHARING FROM REHAB AND ADMITTED TO ACUTE FLOOR.FAMILY AT BEDSIDE.
== END 2020-03-28 10:54 | disposition short-term general hospital (02) | DRG 92 ==
LOC: D.REHAB 18:00
PROVIDERS: ADMIT Emergency Medicine; ATTEND Emergency Medicine
DX: G72.89 Other specified myopathies (principal); C79.31 Secondary malignant neoplasm of brain; R47.01 Aphasia; L03.115 Cellulitis of right lower limb; R13.12 Dysphagia, oropharyngeal phase; R53.1 Weakness; E11.649 Type 2 diabetes mellitus with hypoglycemia without coma; D53.9 Nutritional anemia, unspecified; D69.6 Thrombocytopenia, unspecified; D63.1 Anemia in chronic kidney disease; C07 Malignant neoplasm of parotid gland; R41.82 Altered mental status, unspecified; R00.0 Tachycardia, unspecified; J44.9 Chronic obstructive pulmonary disease, unspecified; I25.10 Atherosclerotic heart disease of native coronary artery without angina pectoris; E11.628 Type 2 diabetes mellitus with other skin complications

== ENCOUNTER 2020-03-28 11:20 | Inpatient (IN) | payer MEDICARE, OTHER ==
[~2020-03-28] VITALS: Ht 203.2 cm; Wt 94.5 kg
--- NOTE | 2020-03-28 11:45 | NUR ---
PATIENT TO ROOM 2218 FROM REHAB VIA WHEELCHAIR. PATIENT IS WITHOUT DISTRESS.BLE SWELLING NOTED WITH MORE ON LLE. RIGHT OUTER ANKLE HAS NICKEL SIZED OPEN AREA WITH LIGHT STAW/PINK TINGED DRAINAGE. LEGS ARE PEELING,SCRAPE AND ABRASIONS TO LEFT KNEE AND LEFT ELBOW.ANAND AREA IS RED AND PEELING IN GROIN AREA.BILATERAL INNER BUTT HAS MULTIPLE SMALL ERASER SIZED OPEN AREAS WITH EXCORIATION AND REDNESS.QUARTER SIZDED RED PEELED AREA TO LEFT HIP. AREA UNDER CHIN RED AND SWOLLEN BLOTCHY ON RIGHT AND MORE SWOLLEN ON LEFT SIDE.FALL PREVENTION INITIATED WITH MARTY MAT. MONITOR FOR NEEDS. AT BEDSIDE.
[2020-03-28 11:52] VITALS: BP 105/58; BMI 22.9
[2020-03-28 13:36] VITALS: BMI 22.8
--- NOTE | 2020-03-28 13:55 | NUR ---
RSTING,WITHOUT NEEDS.CALL LIGHT IN REACH
[2020-03-28 14:49] LABS: ANION GAP 9.3 mmol/L (8-16); CALCIUM 8.4 mg/dL (8.5-10.1); CARBON DIOXIDE 29.4 mmol/L (21.0-32.0); CREATININE - SERUM 1.6 mg/dL (0.6-1.3); POTASSIUM - SERUM 3.7 mmol/L (3.5-5.1)
[2020-03-28 15:02] LABS: BASOPHILS 0.2 % (0-2); EOSINOPHILS 0.6 % (0-7); HEMATOCRIT 31.8 % (42.0-54.0); HEMOGLOBIN 10.2 g/dL (13.5-17.5); IMMATURE GRANULOCYTES 1.3 % (0-5); LYMPHOCYTES 30.2 % (15-50); MCH 31.5 pg (26.0-34.0); MCHC 32.1 g/dL (31.0-37.0); MCV 98.1 fL (80.0-100.0); MEAN PLATELET VOLUME 9.6 fL (7.4-10.4); NEUTROPHILS 52.7 % (40-80); PLATELET COUNT 358 10x3/uL (130-400); RBC 3.24 10x6/uL (4.20-6.10); RDW 15.9 % (11.5-14.5); WBC 9.3 10x3/uL (4.8-10.8)
[2020-03-28 16:59] VITALS: BP 143/66
[2020-03-28 20:00] VITALS: BP 144/62
--- NOTE | 2020-03-28 23:43 | NUR ---
PT C/O RIGHT SIDE/FLANK PAIN 04/25. GAVE PERCOCET-10 1 TAB PO. APPLIED CALMOSEPTINE TO BUTTOCKS FOR EXCORIATION. NO OTHER NEEDS. WILL REASSESS AND CONTINUE TO MONITOR.
[2020-03-29] VITALS: BP 135/50
[2020-03-29 04:00] VITALS: BP 156/60
[2020-03-29 05:08] LABS: BASOPHILS 0.2 % (0-2); EOSINOPHILS 0.5 % (0-7); HEMATOCRIT 28.2 % (42.0-54.0); IMMATURE GRANULOCYTES 1.6 % (0-5); LYMPHOCYTES 30.6 % (15-50); MCH 31.1 pg (26.0-34.0); MCHC 31.9 g/dL (31.0-37.0); MCV 97.6 fL (80.0-100.0); MEAN PLATELET VOLUME 9.7 fL (7.4-10.4); MONOCYTES 16.5 % (2-11); NEUTROPHILS 50.6 % (40-80); PLATELET COUNT 316 10x3/uL (130-400); RBC 2.89 10x6/uL (4.20-6.10); RDW 15.7 % (11.5-14.5); WBC 8.1 10x3/uL (4.8-10.8)
[2020-03-29 05:30] LABS: ALBUMIN 2.1 g/dL (3.4-5.0); ANION GAP 6.1 mmol/L (8-16); BILIRUBIN - TOTAL 0.44 mg/dL (0.2-1.3); CALCIUM 8.2 mg/dL (8.5-10.1); CARBON DIOXIDE 31.7 mmol/L (21.0-32.0); CREATININE - SERUM 1.6 mg/dL (0.6-1.3); POTASSIUM - SERUM 3.8 mmol/L (3.5-5.1); PROTEIN - SERUM 5.2 g/dL (6.4-8.2)
[2020-03-29 07:54] VITALS: BP 175/65
--- NOTE | 2020-03-29 08:58 | NUR ---
PT ALERT X 4. BREATH SOUNDS CLEAR BILAT. IV TO LEFT FOREARM PATENT, DRESSING CDI. MULTIPLE WOUNDS. CHANGED DRESSING TO RIGHT ANKLE WOUND PER ORDERS. PT REPORTING PAIN OF 5/10, NOT WANTING MEDICATION AT THIS TIME. BED LOW, CALL LIGHT IN REACH. NO OTHER NEEDS AT THIS TIME.
[2020-03-29 10:03] LABS: % SATURATION 20 % (15-55); IRON 33 ug/dl (35-150); TOTAL IRON BIND CAPACITY 164 ug/dl (260-445); UNSAT IRON BIND CAPACITY 131 ug/dl (150-375)
[2020-03-29 12:06] VITALS: BP 117/56
[2020-03-29 17:39] VITALS: BP 145/72
[2020-03-29 20:00] VITALS: BP 147/72
--- NOTE | 2020-03-30 01:00 | NUR ---
PT INCONTINENT OF BOWEL. CLEANED PT AND CHANGED LINEN/GOWN. NO OTHER NEEDS. WILL REASSESS AND CONTINUE TO MONITOR.
[2020-03-30 05:36] LABS: BASOPHILS 0.2 % (0-2); EOSINOPHILS 0.5 % (0-7); HEMATOCRIT 30.7 % (42.0-54.0); HEMOGLOBIN 10.1 g/dL (13.5-17.5); IMMATURE GRANULOCYTES 1.5 % (0-5); MCH 32.3 pg (26.0-34.0); MCHC 32.9 g/dL (31.0-37.0); MCV 98.1 fL (80.0-100.0); NEUTROPHILS 62.8 % (40-80); PLATELET COUNT 305 10x3/uL (130-400); RBC 3.13 10x6/uL (4.20-6.10); RDW 16.1 % (11.5-14.5); WBC 8.7 10x3/uL (4.8-10.8)
[2020-03-30 06:05] LABS: ALBUMIN 2.1 g/dL (3.4-5.0); ANION GAP 11.7 mmol/L (8-16); BILIRUBIN - TOTAL 0.49 mg/dL (0.2-1.3); CALCIUM 8.7 mg/dL (8.5-10.1); CARBON DIOXIDE 28.3 mmol/L (21.0-32.0); CREATININE - SERUM 1.4 mg/dL (0.6-1.3); PROTEIN - SERUM 5.6 g/dL (6.4-8.2)
--- NOTE | 2020-03-30 07:33 | NUR ---
ALERT AND ORIENTED. LUNGS CLEAR BILATERALLY. HEART SOUNDS S1 AND S2 HEARD IN ALL FERRELL. BOWEL SOUNDS ACTIVE X 4. DENIES NEEDS. BED ALARM ON. CALL MOORE AND PERSONAL ITEMS IN REACH. WILL CONTINUE TO MONITOR.
[2020-03-30 08:22] VITALS: BP 141/62
[2020-03-30 12:14] VITALS: BP 91/52
--- NOTE | 2020-03-30 13:42 | NUR ---
IV SITED TO LFA AFTER ONE ATTEMPT WITH 22 GAUGE.
--- NOTE | 2020-03-30 15:08 | NUR ---
DRSG CHANGED TO RIGHT ANKLE.
[2020-03-30 16:12] VITALS: BP 130/68
--- NOTE | 2020-03-30 17:03 | NUR ---
PATIENT EATING IN ROOM WITH DAUGHTER. WILL CATH PATIENT FOR URINE CULTURE AFTER FINISHES EATING.
--- NOTE | 2020-03-30 17:31 | NUR ---
URINE CULTURE COLLECTED BY IN AND OUT CATH VIA STERILE PROCEDURE PER ORDER.
--- NOTE | 2020-03-30 18:28 | NUR ---
RESTING IN BED. DENIES NEEDS. WILL CONTINUE TO MONTIOR.
[2020-03-30 20:29] VITALS: BP 146/56
[2020-03-31 00:16] VITALS: BP 138/55
[2020-03-31 05:30] LABS: BASOPHILS 0.2 % (0-2); HEMATOCRIT 28.2 % (42.0-54.0); IMMATURE GRANULOCYTES 1.7 % (0-5); LYMPHOCYTES 24.4 % (15-50); MCH 31.3 pg (26.0-34.0); MCHC 31.9 g/dL (31.0-37.0); MCV 97.9 fL (80.0-100.0); MEAN PLATELET VOLUME 9.6 fL (7.4-10.4); MONOCYTES 13.5 % (2-11); NEUTROPHILS 59.2 % (40-80); PLATELET COUNT 288 10x3/uL (130-400); RBC 2.88 10x6/uL (4.20-6.10); RDW 15.9 % (11.5-14.5); WBC 8.8 10x3/uL (4.8-10.8)
[2020-03-31 05:54] LABS: ANION GAP 10.7 mmol/L (8-16); BILIRUBIN - TOTAL 0.42 mg/dL (0.2-1.3); CALCIUM 8.2 mg/dL (8.5-10.1); CARBON DIOXIDE 28.1 mmol/L (21.0-32.0); CREATININE - SERUM 1.3 mg/dL (0.6-1.3); POTASSIUM - SERUM 3.8 mmol/L (3.5-5.1); PROTEIN - SERUM 5.5 g/dL (6.4-8.2)
[2020-03-31 06:17] VITALS: BP 148/72
--- NOTE | 2020-03-31 07:21 | NUR ---
RESTING WITHOUT DISTRESS.CALL LIGHT IN REACH
--- NOTE | 2020-03-31 07:28 | NUR ---
PT SLOUCHED IN BED WITH BREATHING TREATMENTMENT GOING. PER PM NURSE PT IS VERY WEAK AND 6'8 AND WILL NEED PT TO ASSIST PT UP, ACTIVE BOWEL SOUNDS, LUNGS CTA, IV IS SL, PT EASILY AWAKENED FOR ASSESSMENT. NO NEEDS VOICED, ASSUME PT CARE
--- NOTE | 2020-03-31 08:53 | NUR ---
PT TOLD SPOUSE THIS MORNIG THAT DOCTORS TOLD HIM YESTERDAY CANCER WAS IN IS FEET, REVIEWED OTES FROM ONCOLOGY AND HOSPITALIST [facility] AND DID NOT SEE WHERE IT STATED THAT BUT TOLD PATIENT THAT IT VERY WELL COULD HAVE TRAVELED TO OTHER PARTS OF THE BODY AND THAT DOCTORS TODAY CAN READRESS CONCERN, PT IS SITTING UP EATING BREAKFAST, TOLD PT AND SPOUSE I WILL RETURN AFTER BREAKFAST TO CHANGE DRESSING TO RT ANKLE. NO OTHER NEEDS AT THIS TIME. CONTINUE WITH GIOVANNI OF CARE
[2020-03-31 09:10] VITALS: BP 146/84
--- NOTE | 2020-03-31 09:43 | NUR ---
CHANGED PT DRESSING TO RT ANKLE, ABOUT QUARTER SIZED, CLEANED AREA, SPOUSE ASKED WHY AREA WAS SCABBED OVER STATED IT WASNT LIKE THAT BEFORE WHEN IN REHAB. EDUCATED PATIENT AND SPOUSE ON DIFFERENT CHANGES OF HEALING AND NECROTIC SKIN TISSUE. CLEANED AREA WITH WOUND CLEANSER AND APPLIED SENTYL CREAM AND REBANDAGED. NO OTHER NEEDS VOICED AT THIS TIME. CONTINUE WITH PLAN OF CARE
[2020-03-31 12:58] VITALS: BP 109/64
[2020-03-31 16:45] VITALS: BP 143/57
--- NOTE | 2020-03-31 17:35 | NUR ---
ASSITED PT TO SITTING UP STRAIGHT IN BED FOR DINNER, PT STATED HE IS IN PAIN, ASKED IF HE WOULD LIKE A PAIN PILL AND PT STATED YES, PT STATES PAIN IS IN HIS BACK AND IS AT ABOUT A 7-8, ADMINISTERED PRN PAIN MEDICATION. NO OTHER NEEDS FROM PT AT THIS TIME. CONTINUE WITH PLAN OF CARE
[2020-03-31 20:22] VITALS: BP 107/47
[2020-04-01] VITALS (7 sets, daily range): BP systolic 103–147; BP diastolic 51–64
--- NOTE | 2020-04-01 04:37 | NUR ---
REC'D CHGE OF SHIFT. IN BED SITTING IN ERECT POSITION.DENIES ANY DISCOMFORT AT PRESENT TIME. WILL CONTINUE TO MONITOR FOR ANY CHGES.AND FOLLOW CURRENT PLAN OF CARE.
--- NOTE | 2020-04-01 04:50 | NUR ---
I have reviewed this patient and I concur with the Shift Assessment completed by the Licensed Practical Nurse today this shift.
[2020-04-01 05:22] LABS: BASOPHILS 0.3 % (0-2); EOSINOPHILS 1.2 % (0-7); IMMATURE GRANULOCYTES 1.9 % (0-5); LYMPHOCYTES 23.2 % (15-50); MCH 31.6 pg (26.0-34.0); MCHC 32.1 g/dL (31.0-37.0); MCV 98.2 fL (80.0-100.0); MEAN PLATELET VOLUME 9.7 fL (7.4-10.4); MONOCYTES 14.8 % (2-11); NEUTROPHILS 58.6 % (40-80); PLATELET COUNT 271 10x3/uL (130-400); RBC 2.85 10x6/uL (4.20-6.10); RDW 16.2 % (11.5-14.5); WBC 9.5 10x3/uL (4.8-10.8)
[2020-04-01 05:35] LABS: ALBUMIN 2.1 g/dL (3.4-5.0); ANION GAP 7.6 mmol/L (8-16); BILIRUBIN - TOTAL 0.43 mg/dL (0.2-1.3); CALCIUM 8.2 mg/dL (8.5-10.1); CARBON DIOXIDE 29.4 mmol/L (21.0-32.0); CREATININE - SERUM 1.4 mg/dL (0.6-1.3); MAGNESIUM - SERUM 1.6 mg/dL (1.8-2.4); PHOSPHOROUS 4.1 mg/dL (2.5-4.9); PROTEIN - SERUM 5.7 g/dL (6.4-8.2)
--- NOTE | 2020-04-01 09:48 | NUR ---
pt sitting up having breakfast, on cl stated he thinks he has had an accident, assisted ux designer with full linen change and bed bath this morning, changed pt dressing to rt ankle. continue with plan of care
--- NOTE | 2020-04-01 13:35 | NUR ---
I have reviewed this patient and I concur with the Shift Assessment completed by the Licensed Practical Nurse today this shift.
--- NOTE | 2020-04-01 14:04 | NUR ---
PATIENT UP WITH PT, AMBULATING WITH 2 PEOPLE AND GAIT BELT. PATIENT SEEMS TO BE TOLERATING WELL. PATIENT HAD WANTED TO GO HOME AND SPOKE TO YARD GENERAL CAR SUPERVISOR ABOUT REQUEST, YARD GENERAL CAR SUPERVISOR SPOKE TO PT AND SPOUSE ABOUT CONCERNS WITH LETTING PT GO EARLY. PATIENT AND SPOUSE VOICED UNDERSTANDING. NO NEEDS VOICED AT THIS TIME. CONTINUE WITH PLAN OF CARE
--- NOTE | 2020-04-01 14:39 | NUR ---
OT NOTE: PT PERFORMED BED MOB WITH MIN ASSIST; REQUIRES CONSTANT CUES TO KEEP HEAD UP DUE TO WEAK CERVICAL MUSCLES. GOOD SITTING BALANCE ON EOB; SIT TO STAND WITH MIN/MOD ASSIST WITH USE OF WALKER..PT SAT RIGHT BACK DOWN STATING THAT HE WAS DIZZY; MAX ASSIST TO GEOVANNA SOCKS AND MIN ASSIST WITH GOWN; ABLE TO AMB WITH MIN/MOD ASSIST APPROX 20 FT..PT BECAME DIZZY AGAIN AND HAD TO BRING CHAIR FOR HIM TO SIT. ABLE TO AMB BACK AGAIN WITH MOD ASSIST. EDD GARCIA, OTR/L [id number]
--- NOTE | 2020-04-01 15:31 | NUR ---
PT SLEEPING IN BED, EASILY AWAKENED FOR FSBSNO NEEDS VOICED AT THIS TIME, SPOKE TO MARJORIE IN MRI STATED THAT MACHINE SHOULD BE FIXED AFTER 4 AND SHE WILL COME GET PT FOR MRI ORDERDE. NO OTHER NEEDS AT THIS TIME. CONTINUE WITH PLAN OF CARE
--- NOTE | 2020-04-01 17:03 | NUR ---
PT REQUESTED TO HAVE SOMETHING TO HELP CALM HIM DOWN FOR MRI AND THAT DR REDD STATED HE COULD HAVE SOMETHING. CHECKED PT MAR AND NO ORDERS SEEN. SPOKE TO DR KOHLI AND RECEIVED VERBAL ORDER FOR PRN MEDICATION. NO OTHER NEEDS AT THIS TIME, ASSISTED WITH PT TRANSFER, CONTINUE WITH PLAN OF CARE
--- NOTE | 2020-04-01 18:10 | NUR ---
PT RETURNED FROM MRI, ASSISTED PT WITH DINNER SET UP, NO S/SX OF DISTRESS, PER MARJORIE WITH MRI PT TOLERATED WELL.CONTINUE WITH PLAN OF CARE
--- NOTE | 2020-04-01 23:03 | NUR ---
REC'D CHGE OF SHIFT WALKING ROUNDS.IN BED WATCHING TV.DENIES ANY DISCOMFORT AT PRESENT TIME.WILL CONTINUE TO MONITOR FOR ANY CHGES AND FOLLOW CURRENT PLAN OF CARE.
[2020-04-02 00:28] VITALS: BP 124/54
--- NOTE | 2020-04-02 04:42 | NUR ---
I have reviewed this patient and I concur with the Shift Assessment completed by the Licensed Practical Nurse today this shift.
[2020-04-02 04:55] LABS: BASOPHILS 0.1 % (0-2); HEMATOCRIT 28.5 % (42.0-54.0); HEMOGLOBIN 9.1 g/dL (13.5-17.5); IMMATURE GRANULOCYTES 1.6 % (0-5); LYMPHOCYTES 19.7 % (15-50); MCH 31.1 pg (26.0-34.0); MCHC 31.9 g/dL (31.0-37.0); MCV 97.3 fL (80.0-100.0); MEAN PLATELET VOLUME 10.1 fL (7.4-10.4); MONOCYTES 12.9 % (2-11); NEUTROPHILS 64.7 % (40-80); PLATELET COUNT 276 10x3/uL (130-400); RBC 2.93 10x6/uL (4.20-6.10); RDW 15.9 % (11.5-14.5); WBC 9.5 10x3/uL (4.8-10.8)
[2020-04-02 05:20] LABS: ALBUMIN 2.2 g/dL (3.4-5.0); ANION GAP 9.9 mmol/L (8-16); BILIRUBIN - TOTAL 0.44 mg/dL (0.2-1.3); CALCIUM 8.2 mg/dL (8.5-10.1); CREATININE - SERUM 1.4 mg/dL (0.6-1.3); MAGNESIUM - SERUM 1.6 mg/dL (1.8-2.4); PHOSPHOROUS 3.2 mg/dL (2.5-4.9); POTASSIUM - SERUM 3.9 mmol/L (3.5-5.1); PROTEIN - SERUM 5.6 g/dL (6.4-8.2)
[2020-04-02 05:50] VITALS: BP 150/74
--- NOTE | 2020-04-02 07:36 | NUR ---
PT LYING IN BED, EMPTIED PT URINAL, PT HAD 600 OUTPUT, NO S/SX OF DISTRESS EASILY AWAKENED, PT HAS IV TO LEFT AND RT FA. LUNGS DIMINISHED IN LOWER LOBES, ACTIVE BOWEL SOUNDS. SKIN AROUND SORE ON RT ANKLE IS RED, NOTIFIED WOUND CARE NURSE. BED IN LOWEST POSITION. CONTINUE WITH PLAN OF CARE
--- NOTE | 2020-04-02 08:30 | NUR ---
LEFT HIP HAS STAGE 1 PRESSURE INJURY (NONBLANCHABLE REDNESS). RECOMMEND COVERING AREA WITH MEPILEX AND REMINDING PT TO STAY OFF HIS LEST SIDE. WOUND CARE WILL MONITOR,
[2020-04-02 09:13] VITALS: BP 136/64
[2020-04-02 12:24] VITALS: BP 114/52
--- NOTE | 2020-04-02 15:07 | NUR ---
OT NOTE: BED MOB WITH MIN ASSIST; MOD ASSIST TO GEOVANNA SOCKS; SIT TO STAND IWTH MIN ASSIST X 2 WITH USE OF WALKER AND GAIT BELT. PT EXHIBITS INCREASED TREMORS IWTH FATIGUE. AMBULATED PT INTO HALLWAY AND AFTER APPROX 10 STEPS, PTS TREMORS BECAME VERY BAD AND WALKER HAD TO BE HELD DOWN TO PREVENT SHAKING. PT REPORTED INCREASED DIZZINESS AND CHAIR HAD TO BE BROUGHT TO PT TO SIT DOWN AND REST. PTS 02 SATS DROPPED TO 88 BUT QUICKLY RETURNED TO 95 AFTER SITTING DOWN. HEART RATE AT 113. MOBIITY APPEARS TO BE GETTING HARDER FOR PT TO TOLERATE. HE WAS ABLE TO SIT UP IN CHAIR FOR EXT TIME, HOWEVER, REQUIRES CHAIR TO BE IN RECLINED POSITION IN ORDER FOR HIS HEAD TO BE UP DUE TO WEAK CERVICAL MUSCLES. EDD GARCIA, Esthela TR/L [phone]
--- NOTE | 2020-04-02 16:33 | NUR ---
OT NOTE: PT COMPLETED FACE AND HAND HYGIENE WITH SETUP. 5-565 THANK YOU,ROBIN IMJARES
--- NOTE | 2020-04-02 17:59 | NUR ---
I have reviewed this patient and I concur with the Shift Assessment completed by the Licensed Practical Nurse today this shift.
[2020-04-02 18:01] VITALS: BP 129/57
--- NOTE | 2020-04-02 18:35 | NUR ---
PT LYING IN BED HAD JUST FINISHED DINNER AND SPOKEN TO DR KOHLI WITH SPOUSE PRESENT. PT HAS IV TO LEFT FA SL, DRESSING ON RT ANKLE CHANGED TODAY, PT ON RA, COUGH IS PRODUCTIVE, ENCOURAGED PT TO USE I/S AND SPIT OUT PHLEGM. PT STATED PAIN IS AT A 5 BUT REFUSED PAIN MEDICATION. NO NEEDS VOICED AT THIS TIME. CONTINUE WITH PLAN OF CARE
--- NOTE | 2020-04-02 19:14 | MORECARE ---
CASE MANAGEMENT DISCHARGE SUMMARY PATIENT: RM HUTSON UNIT: [id number] ADM DATE: 03/28/20 AGE: 69 : 49 SEX: M ROOM/BED: D.2218 AUTHOR: PRICE NAIR PHYSICIAN: REFERRING PHYSICIAN: MIGUELITO FLETCHER MD DATE OF SERVICE: 04/02/20 Discharge Plan Patient Name: RM HUTSON Facility: [facility]:[place] : 1950 Planned Disposition: Anticipated Discharge Date: Discharge Date: Expected LOS: Initial Reviewer: [email or web address] Initial Review Date: 03/28/2020 Generated: 04/02/20 8:14 pm DCPIA - Discharge Planning Initial Assessment Updated by [email or web address]: Rachell Kerr on 04/02/20 7:12 pm * Is the patient Alert and Oriented? Yes * How many steps to enter\exit or inside your home? Ramp * PCP Dr. Fletcher * Pharmacy [address] * Preadmission Environment Home with Family * ADLs Partial Dependent * Partial ADLs (Assistance needed) Ambulation Bathing Transfers * Equipment Power Chair or Electric Scooter Shower Chair Tub Bench * Other Equipment Electric scooter supplied by [place] * List name and contact numbers for known caregivers / representatives who currently or will assist patient after discharge: Tanisha Hutson () [phone] * Verbal permission to speak to the caregivers and representatives has been obtained from the patient. Yes * Community resources currently utilized Home Health * Please name any agencies selected above. [facility] * Additional services required to return to the preadmission environment? Yes * Has this patient been hospitalized within the prior 30 days at any hospital? Yes Coverage Notice Reviewer: [id number] - Rachell Kerr Notice Issued Date-Time: 04/02/2020 19:06 Notice Type: IM Discharge Notice Notice Delivered To: Patient Relationship to Patient: Self Reading Professor Name: Rm Hutson Delivery Method: - Bridgett Days: Prior Verbal Notification: Recipient Understood Notice: Recipient Signature: Med Rec Note Co-signed by Attending: Coverage Notice Comment: Patient Name: RM HUTSON Page [phone] at 1914 All edits/amendments must be made on the electronic document DICTATION DATE: 04/02/201913 STAFF DEVELOPMENT MANAGER: ALEENA 04/02/201913 RPT#: [id number] PR DATE: STATUS: ADM IN [facility] [address] [place] [address] END OF REPORT
--- NOTE | 2020-04-02 19:27 | MORECARE ---
CASE MANAGEMENT DISCHARGE SUMMARY PATIENT: RM HUTSON UNIT: [id number] ADM DATE: 03/28/20 AGE: 69 : 49 SEX: M ROOM/BED: D.2218 AUTHOR: KOREY,DOC PHYSICIAN: REFERRING PHYSICIAN: MIGUELITO FLETCHER MD DATE OF SERVICE: 04/02/20 Discharge Plan Patient Name: RM HUTSON Facility: [facility]:[place] : 1950 Planned Disposition: Anticipated Discharge Date: Discharge Date: Expected LOS: Initial Reviewer: [email or web address] Initial Review Date: 03/28/2020 Generated: 04/02/20 8:26 pm Comments DCP- Discharge Planning Updated by [id number]: Rachell Kerr on 04/02/20 6:[address] CM met with patient and his , Tanisha Hutson ([phone]) regarding DC plans/needs. Patient states he lives partially independent with his . States he has a ramp to enter the home. PCP: Dr. Fletcher. Pharmacy: [facility] [address] DME: 2 wheeled walker, Electric Scooter ([place]), tub bench, BSC. HHS with [facility] is in the home prior to arrival. CM discussed additional services: HHS, Rehab, OP Therapy, Skilled for Rehab. Patient states that his balance is poor, he gets SOB with ambulation at times and has to take several rest breaks when attempting to ambulate. CM spoke with patient's , who states "I can't take care of him in his condition." Discussed Nursing skilled rehab in a facility. Dr. Barker also spoke with the patient regarding a skilled facility. Patient's is in agreement, but patient would like to think about and also contact his doctor at [facility], to determine additional care for his diagnosis. CM provided work cell number for contact. CM will follow and assist with DC planning PRN. Patient is reluctant to consider a nursing facility, but his states she cannot take care of him in the home, in his current condition. CM will revisit 04/03. DCPIA - Discharge Planning Initial Assessment Updated by [id number]: Rachell Kerr on 04/02/20 7:12 pm * Is the patient Alert and Oriented? Yes * How many steps to enter\\exit or inside your home? Ramp * PCP Dr. Fletcher * Pharmacy [address] * Preadmission Environment Home with Family * ADLs Partial Dependent * Partial ADLs (Assistance needed) Ambulation Bathing Transfers * Equipment Power Chair or Electric Scooter Shower Chair Tub Bench * Other Equipment Electric scooter [facility] by [facility] * List name and contact numbers for known caregivers / representatives who currently or will assist patient after discharge: Tanisha Hutson () [phone] * Verbal permission to speak to the caregivers and representatives has been obtained from the patient. Yes * Community resources currently utilized Home Health * Please name any agencies selected above. [facility] * Additional services required to return to the preadmission environment? Yes * Has this patient been hospitalized within the prior 30 days at any hospital? Yes Coverage Notice Reviewer: [email or web address] Ynes Kerr Notice Issued Date-Time: 04/02/2020 19:06 Notice Type: IM Discharge Notice Notice Delivered To: Patient Relationship to Patient: Self Windows Phone Developer Name: Rm Hutson Delivery Method: - Bridgett Days: Prior Verbal Notification: Recipient Understood Notice: Recipient Signature: Med Rec Note Co-signed by Attending: Coverage Notice Comment: Last DP export: 04/02/20 6:14 p Patient Name: RM HUTSON Page [id number] at 1927 All edits/amendments must be made on the electronic document DICTATION DATE: 04/02/201925 ACTIONSCRIPT DEVELOPER: ALEENA 04/02/201925 RPT#: [id number] DC DATE: STATUS: ADM IN [facility] [address] [place] [address] END OF REPORT
--- NOTE | 2020-04-02 19:33 | MORECARE ---
CASE MANAGEMENT DISCHARGE SUMMARY PATIENT: RM HUTSON UNIT: [id number] ADM DATE: 03/28/20 AGE: 69 : 49 SEX: M ROOM/BED: D.2218 AUTHOR: KOREY,DOC PHYSICIAN: REFERRING PHYSICIAN: MIGUELITO FLETCHER MD DATE OF SERVICE: 04/02/20 Discharge Plan Patient Name: RM HUTSON Facility: [facility]:[place] : 1950 Planned Disposition: Anticipated Discharge Date: Discharge Date: Expected LOS: Initial Reviewer: [email or web address] Initial Review Date: 03/28/2020 Generated: 04/02/20 8:33 pm Comments DCP- Discharge Planning Updated by [email or web address]: Rachell Kerr on 04/02/20 6:[address] CM met with patient and his , Tanisha Hutson ([phone]) regarding DC plans/needs. Patient states he lives partially independent with his . States he has a ramp to enter the home. PCP: Dr. Fletcher. Pharmacy: [facility] [address] DME: 2 wheeled walker, Electric Scooter ([place]), tub bench, BSC, glucometer. HHS with [facility] is in the home prior to arrival. CM discussed additional services: HHS, Rehab, OP Therapy, Skilled for Rehab. Patient states that his balance is poor, he gets SOB with ambulation at times and has to take several rest breaks when attempting to ambulate. CM spoke with patient's , who states "I can't take care of him in his condition." Discussed Nursing skilled rehab in a facility. Dr. Barker also spoke with the patient regarding a skilled facility. Patient's is in agreement, but patient would like to think about and also contact his doctor at [facility], to determine additional care for his diagnosis. CM provided work cell number for contact. CM will follow and assist with DC planning PRN. Patient is reluctant to consider a nursing facility, but his states she cannot take care of him in the home, in his current condition. CM will revisit 04/03. DCPIA - Discharge Planning Initial Assessment Updated by [id number]: Rachell Kerr on 04/02/20 7:12 pm * Is the patient Alert and Oriented? Yes * How many steps to enter\\exit or inside your home? Ramp * PCP Dr. Fletcher * Pharmacy [address] * Preadmission Environment Home with Family * ADLs Partial Dependent * Partial ADLs (Assistance needed) Ambulation Bathing Transfers * Equipment Power Chair or Electric Scooter Shower Chair Tub Bench * Other Equipment Electric scooter supplied by [facility] * List name and contact numbers for known caregivers / representatives who currently or will assist patient after discharge: Tanisha Hutson () [phone] * Verbal permission to speak to the caregivers and representatives has been obtained from the patient. Yes * Community resources currently utilized Home Health * Please name any agencies selected above. [facility] * Additional services required to return to the preadmission environment? Yes * Has this patient been hospitalized within the prior 30 days at any hospital? Yes Coverage Notice Reviewer: [email or web address] Ynes Kerr Notice Issued Date-Time: 04/02/2020 19:06 Notice Type: IM Discharge Notice Notice Delivered To: Patient Relationship to Patient: Self Auctioneer Tobacco Name: Rm Hutson Delivery Method: - Bridgett Days: Prior Verbal Notification: Recipient Understood Notice: Recipient Signature: Med Rec Note Co-signed by Attending: Coverage Notice Comment: Last DP export: 04/02/20 6:27 p Patient Name: RM HUTSON Page [phone] at 1933 All edits/amendments must be made on the electronic document DICTATION DATE: 04/02/201932 DENTAL BILLING SPECIALIST: ALEENA 04/02/201932 RPT#: [id number] DC DATE: STATUS: ADM IN [facility] [address] [place] [address] END OF REPORT
[2020-04-02 20:00] VITALS: BP 144/59
--- NOTE | 2020-04-02 22:31 | NUR ---
PT PATIENT REGISTRATION CLERK LIGHT AND ASKED ME TO TURN OFF ALL LIGHT FOR HIM TO GO TO BED, INFORMED PT I NEEDED TO DO A FSBS, PT STATED NO HE JUST WANTS TO SLEEP, PT STILL HAD HALF OF 2100 MEDS ON BEDSIDE TABLE INFORMED PT HE NEEDS TO TAKE HIS MEDS AND I ONLY GAVE HIM WHAT HE WANTED. PT STILL HAD MELATONIN IN CUP ALONG WITH ANOTHER MED, PT STATED HE WOULD IF I WILL LET HIM SLEEP. TOLD PT THAT THE MEDICATION IS FOR HELPING HIM SLEEP, PT EVENTUALLY OBLIGED AND TOOK MEDS. EMPTIED 450 FROM PT URINAL. NO OTHER NEEDS VOICED, CONTINUE WITH PLAN OF CARE
--- NOTE | 2020-04-02 23:33 | NUR ---
RECEIVED BEDSIDE SHIFT REPORT. RESTING IN BED WITH EYES CLOSED. EASILY AROUSES WITH VERBAL STIMULI. IV TO RT FA SL. DENIES ANY NEEDS AT THIS TIME.
[2020-04-03] VITALS (7 sets, daily range): BP systolic 119–180; BP diastolic 49–80
[2020-04-03 07:12] LABS: ALBUMIN 2.4 g/dL (3.4-5.0); ANION GAP 12.1 mmol/L (8-16); BILIRUBIN - TOTAL 0.41 mg/dL (0.2-1.3); CALCIUM 8.4 mg/dL (8.5-10.1); CREATININE - SERUM 1.4 mg/dL (0.6-1.3); MAGNESIUM - SERUM 1.8 mg/dL (1.8-2.4); PHOSPHOROUS 3.1 mg/dL (2.5-4.9); POTASSIUM - SERUM 4.1 mmol/L (3.5-5.1); PROTEIN - SERUM 6.2 g/dL (6.4-8.2)
[2020-04-03 07:27] LABS: BASOPHILS 0.1 % (0-2); EOSINOPHILS 0 % (0-7); HEMATOCRIT 29.7 % (42.0-54.0); HEMOGLOBIN 9.6 g/dL (13.5-17.5); IMMATURE GRANULOCYTES 1.1 % (0-5); LYMPHOCYTES 10.6 % (15-50); MCH 31.3 pg (26.0-34.0); MCHC 32.3 g/dL (31.0-37.0); MCV 96.7 fL (80.0-100.0); MEAN PLATELET VOLUME 10.1 fL (7.4-10.4); MONOCYTES 3.1 % (2-11); NEUTROPHILS 85.1 % (40-80); PLATELET COUNT 283 10x3/uL (130-400); RBC 3.07 10x6/uL (4.20-6.10); RDW 16.1 % (11.5-14.5); WBC 10.7 10x3/uL (4.8-10.8)
--- NOTE | 2020-04-03 07:29 | NUR ---
ALERT AND ORIENTED. LUNGS CLEAR BILATERALLY. HEART SOUNDS S1 AND S2 HEARD IN ALL FERRELL. BOWEL SOUNDS ACTIVE X 4. BEDDING CHANGED D/T SOILED. BUTTOCKS EXCORIATED. DRSG TO RIGHT ANKLE C/D/I. WILL CHANGE TODAY. IV TO RFA SL PATENT WITHOUT REDNESS. BED LOW. BED ALARM ON. CALL MOORE AND PERSONAL ITEMS IN REACH. WILL CONTINUE TO MONITOR.
--- NOTE | 2020-04-03 09:06 | NUR ---
SPOKE WITH TAD OGLESBY PER DR REDD REQUEST TO HAVE TAD CALL DR REDD.
--- NOTE | 2020-04-03 11:10 | NUR ---
DRSG CHANGED TO RIGHT ANKLE PER ORDER.
--- NOTE | 2020-04-03 12:36 | NUR ---
RESTING IN BED. DENIES NEEDS. WILL CONTINUE TO MONITOR.
--- NOTE | 2020-04-03 13:56 | NUR ---
OT NOTE: PT PERFORMED MUCH BETTER TODAY. VERY MIN ASSIST WITH SUPINE TO SIT; GOOD SITTING BALANCE ON EOB FOR APPROX 5 MIN. EXTENSIVE ASSIST WITH DONNING SOCKS AND PERINEAL CARE. PT AMB APPROX 30-40 WITH MIN ASSIST X 2 WITH NO EPISODES OF DIZZINESS OR SHAKING.. HOWEVER, PT INCONT OF BOWEL DURING AMBULATION AND WAS COMPLETELY UNAWARE UNTIL RETURNED TO ROOM. PT ABLE TO STAND APPROX 4 MIN WHILE PERINEAL CARE WAS PERFORMED. ALSO APPLIED SKIN BARRIER CREAM.. SAT UP IN CHAIR FOR GREATER THAN 1 HR. EDD GARCIA, OTR/L [phone]
--- NOTE | 2020-04-03 15:36 | NUR ---
PATIENT ASSISTED TO BATHROOM WITH MINIMAL ASSIST AND BEDDING CHANGED D/T SOILED.
--- NOTE | 2020-04-03 15:36 | NUR ---
OT NOTE: PT COMPLETE BUE AROM EXS. PT COMPLETED FACE AND HAND HYGIENE TASKS WITH SETUP. [phone] THANK YOU,ROBIN MIJARES
--- NOTE | 2020-04-03 16:39 | NUR ---
RESTING IN BED. DENIES NEEDS. AT BEDSIDE. WILL CONTINUE TO MONITOR.
--- NOTE | 2020-04-03 19:30 | NUR ---
BED ALARM GOING OFF AT SAME TIME LOUD NOISE HEARD OUTSIDE ROOM. WALKED IN ROOM TO PATIENT LYING BESIDE BED ON RIGHT SIDE. PATIENT STATES ROLLED OUT OF BED. SKIN TEAR NOTED TO LEFT ARM. CLEANED AND DRESSED WITH ADAPTIC, GAUZE, AND KERLIX. PATIENT STATES THINKS HIT HEAD AND RIGHT HIP HURTING. PATIENT ASSISTED BACK TO BED BY THREE NURSES AND LATHE TURNER. NIGHT NURSE HEAVEN RECEIVING ORDERS FROM MD AND WILL PLACE. PATIENT'S NOTIFED OF SITUATION.
--- NOTE | 2020-04-03 19:33 | MORECARE ---
CASE MANAGEMENT DISCHARGE SUMMARY PATIENT: RM HUTSON UNIT: [id number] ADM DATE: 03/28/20 AGE: 69 : 49 SEX: M ROOM/BED: D.2218 AUTHOR: KOREY,DOC PHYSICIAN: REFERRING PHYSICIAN: MIGUELITO FLETCHER MD DATE OF SERVICE: 04/03/20 Discharge Plan Patient Name: RM HUTSON Facility: [facility]:[place] : 1950 Planned Disposition: Anticipated Discharge Date: Discharge Date: Expected LOS: Initial Reviewer: [email or web address] Initial Review Date: 03/28/2020 Generated: 04/03/20 8:32 pm Comments DCP- Discharge Planning Updated by [id number]: Rachell Kerr on 04/03/20 6:[address] CM met with patient again today regarding DC plans. Patient states that his doctor at [facility] informed him that there was nothing else they could do for him. Questioned patient about Skilled or Home. Patient refuses Hospice at this time, states "I don't want it, I'll go home and my will take care of me". Patient's has already states that she cannot take care of him in his current condition. patient states " I want to go home". Encouraged patient to reconsider Rehab to improve his gait and balance. patient request CM to "come back tomorrow". CM will revisit again 04/04 DCP- Discharge Planning Updated by [id number]: Rachell Kerr on 04/02/20 6:[address] CM met with patient and his , Tanisha Hutson ([phone]) regarding DC plans/needs. Patient states he lives partially independent with his . States he has a ramp to enter the home. PCP: Dr. Fletcher. Pharmacy: [address] DME: 2 wheeled walker, Electric Scooter ([place]), tub bench, BSC, glucometer. HHS with [place] is in the home prior to arrival. CM discussed additional services: HHS, Rehab, OP Therapy, Skilled for Rehab. Patient states that his balance is poor, he gets SOB with ambulation at times and has to take several rest breaks when attempting to ambulate. CM spoke with patient's , who states "I can't take care of him in his condition." Discussed Nursing skilled rehab in a facility. Dr. Barker also spoke with the patient regarding a skilled facility. Patient's is in agreement, but patient would like to think about and also contact his doctor at [facility], to determine additional care for his diagnosis. CM provided work cell number for contact. CM will follow and assist with DC planning PRN. Patient is reluctant to consider a nursing facility, but his states she cannot take care of him in the home, in his current condition. CM will revisit 04/03. DCPIA - Discharge Planning Initial Assessment Updated by [email or web address]: Rachell Kerr on 04/02/20 7:12 pm * Is the patient Alert and Oriented? Yes * How many steps to enter\\exit or inside your home? Ramp * PCP Dr. lFetcher * Pharmacy [address] * Preadmission Environment Home with Family * ADLs Partial Dependent * Partial ADLs (Assistance needed) Ambulation Bathing Transfers * Equipment Power Chair or Electric Scooter Shower Chair Tub Bench * Other Equipment Electric scooter supplied by [place] * List name and contact numbers for known caregivers / representatives who currently or will assist patient after discharge: Tanisha Hutson () [phone] * Verbal permission to speak to the caregivers and representatives has been obtained from the patient. Yes * Community resources currently utilized Home Health * Please name any agencies selected above. [facility] * Additional services required to return to the preadmission environment? Yes * Has this patient been hospitalized within the prior 30 days at any hospital? Yes Coverage Notice Reviewer: [id number] - Rachell Kerr Notice Issued Date-Time: 04/02/2020 19:06 Notice Type: IM Discharge Notice Notice Delivered To: Patient Relationship to Patient: Self Front Worker Name: Rm Hutson Delivery Method: - Bridgett Days: Prior Verbal Notification: Recipient Understood Notice: Recipient Signature: Med Rec Note Co-signed by Attending: Coverage Notice Comment: Last DP export: 04/02/20 6:33 p Patient Name: RM HUTSON Page [id number] at 1933 All edits/amendments must be made on the electronic document DICTATION DATE: 04/03/201931 PROFESSOR OF BIBLICAL STUDIES: ALEENA 04/03/201931 RPT#: [id number] DC DATE: STATUS: ADM IN [facility] [address] [place] [address] END OF REPORT
--- NOTE | 2020-04-03 19:39 | MORECARE ---
CASE MANAGEMENT DISCHARGE SUMMARY PATIENT: RM HUTSON UNIT: [id number] ADM DATE: 03/28/20 AGE: 69 : 49 SEX: M ROOM/BED: D.2218 AUTHOR: KOREY,DOC PHYSICIAN: REFERRING PHYSICIAN: MIGUELITO FLETCHER MD DATE OF SERVICE: 04/03/20 Discharge Plan Patient Name: RM HUTSON Facility: [facility]:[place] : 1950 Planned Disposition: Anticipated Discharge Date: Discharge Date: Expected LOS: Initial Reviewer: [email or web address] Initial Review Date: 03/28/2020 Generated: 04/03/20 8:39 pm Comments DCP- Discharge Planning Updated by [email or web address]: Rachell Kerr on 04/03/20 6:[address] CM met with patient again today regarding DC plans. Patient states that his doctor at [facility] informed him that there was nothing else they could do for him. Questioned patient about Skilled or Home. Patient refuses Hospice at this time, states "I don't want it, I'll go home and my will take care of me". Patient's has already states that she cannot take care of him in his current condition. patient states " I want to go home". Encouraged patient to reconsider Rehab to improve his gait and balance. patient request CM to "come back tomorrow". CM will revisit again 04/04 DCP- Discharge Planning Updated by [id number]: Rachell Kerr on 04/02/20 6:[address] CM met with patient and his , Tanisha Hutson ([phone]) regarding DC plans/needs. Patient states he lives partially independent with his . States he has a ramp to enter the home. PCP: Dr. Fletcher. Pharmacy: [address] DME: 2 wheeled walker, Electric Scooter ([place]), tub bench, BSC, glucometer. HHS with [place] is in the home prior to arrival. CM discussed additional services: HHS, Rehab, OP Therapy, Skilled for Rehab. Patient states that his balance is poor, he gets SOB with ambulation at times and has to take several rest breaks when attempting to ambulate. CM spoke with patient's , who states "I can't take care of him in his condition." Discussed Nursing skilled rehab in a facility. Dr. Barker also spoke with the patient regarding a skilled facility. Patient's is in agreement, but patient would like to think about and also contact his doctor at [facility], to determine additional care for his diagnosis. CM provided work cell number for contact. CM will follow and assist with DC planning PRN. Patient is reluctant to consider a nursing facility, but his states she cannot take care of him in the home, in his current condition. CM will revisit 04/03. DCPIA - Discharge Planning Initial Assessment Updated by [id number]: Rachell Kerr on 04/02/20 7:12 pm * Is the patient Alert and Oriented? Yes * How many steps to enter\\exit or inside your home? Ramp * PCP Dr. Fletcher * Pharmacy [address] * Preadmission Environment Home with Family * ADLs Partial Dependent * Partial ADLs (Assistance needed) Ambulation Bathing Transfers * Equipment Power Chair or Electric Scooter Shower Chair Tub Bench * Other Equipment Electric scooter supplied by [place] * List name and contact numbers for known caregivers / representatives who currently or will assist patient after discharge: Tanisha Hutson () [phone] * Verbal permission to speak to the caregivers and representatives has been obtained from the patient. Yes * Community resources currently utilized Home Health * Please name any agencies selected above. [facility] * Additional services required to return to the preadmission environment? Yes * Has this patient been hospitalized within the prior 30 days at any hospital? Yes Coverage Notice Reviewer: [id number] - Rachell Kerr Notice Issued Date-Time: 04/02/2020 19:06 Notice Type: IM Discharge Notice Notice Delivered To: Patient Relationship to Patient: Self Ship Propeller Finisher Name: Rm Hutson Delivery Method: - Bridgett Days: Prior Verbal Notification: Recipient Understood Notice: Recipient Signature: Med Rec Note Co-signed by Attending: Coverage Notice Comment: Last DP export: 04/02/20 6:33 p Patient Name: RM HUTSON Page [phone] at 1939 All edits/amendments must be made on the electronic document DICTATION DATE: 04/03/201938 CONSTRUCTION ELECTRICIAN: ALEENA 04/03/201938 RPT#: [id number] DC DATE: STATUS: ADM IN [facility] [address] [place] [address] END OF REPORT
--- NOTE | 2020-04-03 21:30 | NUR ---
RECEIVED CALL FROM DR UGILLERMO TO MAKE PT NPO AFTER MIDNIGHT FOR HIP REPAIR IN THE A.M.. PTs CALLED AND NOTIFIED. STATES SHE WILL COME TO THE HOSPITAL BEFORE 7AM.
[2020-04-04] VITALS: BP 143/64
[2020-04-04 04:00] VITALS: BP 128/49
[2020-04-04 06:30] LABS: ANION GAP 10.1 mmol/L (8-16); CALCIUM 8.3 mg/dL (8.5-10.1); CARBON DIOXIDE 27.8 mmol/L (21.0-32.0); CREATININE - SERUM 1.5 mg/dL (0.6-1.3); MAGNESIUM - SERUM 1.8 mg/dL (1.8-2.4); PHOSPHOROUS 3.2 mg/dL (2.5-4.9); POTASSIUM - SERUM 3.9 mmol/L (3.5-5.1)
[2020-04-04 06:43] LABS: BASOPHILS 0.1 % (0-2); EOSINOPHILS 0.1 % (0-7); HEMOGLOBIN 8.8 g/dL (13.5-17.5); IMMATURE GRANULOCYTES 1.2 % (0-5); LYMPHOCYTES 10.5 % (15-50); MCH 31.3 pg (26.0-34.0); MCHC 32.6 g/dL (31.0-37.0); MCV 96.1 fL (80.0-100.0); MEAN PLATELET VOLUME 9.9 fL (7.4-10.4); NEUTROPHILS 78.1 % (40-80); PLATELET COUNT 278 10x3/uL (130-400); RBC 2.81 10x6/uL (4.20-6.10); RDW 15.9 % (11.5-14.5)
[2020-04-04 06:59] LABS: WBC 17.2 10x3/uL (4.8-10.8)
--- NOTE | 2020-04-04 07:05 | NUR ---
ALERT AND ORIENTED. AT BEDSIDE. C/O PAIN, UNABLE TO GIVE PAIN MEDS AT THIS TIME D/T IT BEING GIVEN ONLY 3 HOURS PRIOR. NO S/S OF ACUTE DISTRESS NOTED. FELL LAST NIGHT AND SUSTAINED A RIGHT HIP FX. SKIN TEAR TO LEFT UPPER ARM, DRESSING C/D/I. BED ALARM ON. ON BEDREST. USES URINAL. STAGE 2 TO RIGHT ANKLE, DRESSING C/D/I. REDNESS TO BUTTOCKS. IVS TO RIGHT FOREARM, SL. SITE PATENT WITHOUT REDNESS OR SWELLING. NPO AT THIS TIME, AWAITING SURGERY TODAY. DENIES ANY NEEDS AT THIS TIME. CALL LIGHT IN REACH. WILL CONTINUE TO MONITOR.
--- NOTE | 2020-04-04 10:50 | NUR ---
I have reviewed this patient and I concur with the Shift Assessment completed by the Licensed Practical Nurse today this shift.
--- NOTE | 2020-04-04 11:41 | NUR ---
1130 TAKEN OVER ON PATIENT CARE FROM cate MARINELLI RN.
--- NOTE | 2020-04-04 12:31 | NUR ---
RECEIVED PATIENT FROM RECOVERY. SLIGHTLY DROWSY. VITALS STABLE. NO S/S OF ACUTE DISTRESS NOTED. DENIES ANY NEEDS AT THIS TIME. AT BEDSIDE. CALL LIGHT IN REACH. BED ALARM ON. WILL CONTINUE TO MONITOR.
--- NOTE | 2020-04-04 14:19 | NUR ---
Nutrition follow-up: Pt is s/p fall with hip fracture; repaired today Labs reviewed Wt: 208# Diet advanced to consistent CHO after surgery; po intake has been ~75% of meals. Labs reviewed Will offer nutritional supplement - Eryn Bell RDN following.
[2020-04-04 18:03] VITALS: BP 105/37
--- NOTE | 2020-04-04 18:10 | OP ---
PATIENT NAME: DEANA HUTSON MEDICAL RECORD: [id number] :[birth year] LOCATION:D.MS [id number] ADMISSION DATE:03/28/20 SURGEON: SHIV GUILLERMO DO DATE OF OPERATION: 04/04/2020 PROCEDURE PERFORMED: Right hip intramedullary nailing. PREOPERATIVE DIAGNOSIS: Displaced right hip intertrochanteric fracture. POSTOPERATIVE DIAGNOSIS: Displaced right hip intertrochanteric fracture. INDICATIONS: Mr. Hutson is a 69-year-old male who has metastatic cancer to the brain and may be other parts of the body, fell yesterday. He had been very dizzy lately, fell yesterday at shift change. X-rays were taken and seen to have a displaced right hip fracture. He was seen and put on the schedule for today. I informed him and his of the risks and benefits of the procedure including infection, bleeding, damage to nerves or vessels, need for further surgery, malunion, nonunion, continued pain, blood clots, and even . They signed the consent. Also, the likelihood of this being metastatic, I have sent off bone reamings. SURGEON: Shiv Guillermo DO DESCRIPTION OF PROCEDURE: The patient was taken to the operative suite, laid in supine position, given general anesthetic, sedated and intubated. He was given 2 grams of Ancef preoperatively, moved over the Sassafras table positioned, prepped and draped in sterile fashion. The fracture was then reduced. We then began by making an incision just proximal to the greater trochanter. Careful dissection was made down to the greater trochanter, starting point was made. Intramedullary canal was entered with the guidepin and then starting reamer then the long guidepin was put down the femur and measured to be 420. We then started reaming with a 9 up to a 15 and put a 15 x 420 nail in. Once I went down, I went to put the lag screw in and centered on the AP and lateral and then measured to be 110 and then then reamed it. Upon entering it, it kicked posteriorly. This was noted after putting it in that and the anti-rotation screw. I then removed the lag screw and backed out the anti-rotation screw and dropped the guide and so made it more anterior, more centered in the femoral head. I then reamed again and put a new another same lag screw, but more centered, had good bite as well as the anterior rotation screw, I then locked it proximally and I went distally and put a dynamic screw and using perfect circles, 48 in length. rAtem Stack, certified first surgical technician then came in and irrigated and closed the wounds with 2-0 Vicryl in inverted interrupted fashion and Prineo glue placed on all of them. He was then dressed with Telfa and Tegaderm. Awakened and taken to recovery in stable condition. Blood loss was approximately 300 mL. COMPLICATIONS: None. TRANSINT:[id number] Voice Confirmation ID: [id number] DOCUMENT ID: [id number] OPERATIVE REPORT [id number] DEANA HUTSON MICHAEL D, DO at 1810 CC: [id number] DICTATION DATE: 04/04/20 1100 EMERGENCY MEDICINE SPECIALIST: 04/04/20 1759 ADM IN [facility] [address] [place] [address]
--- NOTE | 2020-04-04 18:17 | NUR ---
RESTING IN BED WITH EYES CLOSED. RESPIRATIONS EVEN AND UNLABORED. NO S/S OF ACUTE DISTRESS NOTED. CALL LIGHT IN REACH. AT BEDSIDE. MARTY ALARM ON. WILL CONTINUE TO MONITOR.
[2020-04-04 20:00] VITALS: BP 113/61
[2020-04-05 00:01] VITALS: BP 108/64
--- NOTE | 2020-04-05 03:55 | NUR ---
ASSESSED AT THE BEGINNING OF THE SHIFT. PT IS SLEEPING ALOT BUT CAN BE AWAKENED AND WILL ANSWER QUESTIONS. WHEN MED TIME CAME HE WAS ABLE TO TAKE ABOUT A THIRD OF HIS MEDS WITH APPLESAUCE BUT REFUSED MOST OF THEM. HE COMPLAINED OF HIS IV SITE HURTING WHEN HIS ANTIBOTIC WAS STARTED SO A NEW ONE WAS STARTED IN HIS RT A/C WITH A 20 GAUGE. LATER DURING THE NIGHT HE STILL HAD NOT VOIDED AND WITH AN IN AND OUT CATH 900 CC WAS OBTAINED. LATER HE WAS GIVEN A TOTAL HIBICLENS BATH AND REPOSITIONED FOR COMFORT AGAIN. WE HAVE UPPED THE O2 TO 4 LITERS AND HAVE THE CANNULA IN HIS MOUTH TO GET HIS O2 SAT TO STAY IN THE LOW 90'S.
[2020-04-05 05:16] VITALS: BP 118/72
[2020-04-05 05:20] LABS: BASOPHILS 0.2 % (0-2); EOSINOPHILS 0.6 % (0-7); HEMATOCRIT 23.2 % (42.0-54.0); LYMPHOCYTES 14.2 % (15-50); MCH 31.6 pg (26.0-34.0); MCHC 31.9 g/dL (31.0-37.0); MEAN PLATELET VOLUME 9.8 fL (7.4-10.4); MONOCYTES 11.4 % (2-11); NEUTROPHILS 71.6 % (40-80); PLATELET COUNT 311 10x3/uL (130-400); RBC 2.34 10x6/uL (4.20-6.10); RDW 16.9 % (11.5-14.5); WBC 12.6 10x3/uL (4.8-10.8)
[2020-04-05 05:21] LABS: HEMOGLOBIN 7.4 g/dL (13.5-17.5); MCV 99.1 fL (80.0-100.0)
[2020-04-05 05:58] LABS: ANION GAP 10.3 mmol/L (8-16); CALCIUM 7.9 mg/dL (8.5-10.1); CARBON DIOXIDE 26.6 mmol/L (21.0-32.0); CREATININE - SERUM 1.8 mg/dL (0.6-1.3); MAGNESIUM - SERUM 1.8 mg/dL (1.8-2.4); PHOSPHOROUS 3.7 mg/dL (2.5-4.9); POTASSIUM - SERUM 3.9 mmol/L (3.5-5.1)
--- NOTE | 2020-04-05 08:47 | NUR ---
STARTED INFUSION OF 1ST UNIT OF PRBC. VITALS STABLE.
[2020-04-05 10:39] VITALS: BP 116/64
[2020-04-05 11:24] VITALS: Ht 203.2 cm; Wt 94.5 kg
[2020-04-05 15:19] VITALS: BP 80/67
--- NOTE | 2020-04-05 16:42 | NUR ---
GOT ORDER TO PLACE DEWEY D/T URINARY RETENTION. PLACED 16FR DEWEY, INFLATED BALLOON WITH 10CC SALINE SYRINGE INCLUDED IN KIT. PATIENT TOLERATED WELL. 225 ML OF URINE IN DEWEY BAG.
--- NOTE | 2020-04-05 18:29 | NUR ---
ALERT AND RESTING IN BED WATCHING TV. NO C/O PAIN. NO S/S OF ACUTE DISTRESS NOTED. DENIES ANY NEEDS AT THIS TIME. MARTY ALARM ON. CALL LIGHT IN REACH. WILL CONTINUE TO MONITOR.
[2020-04-05 18:37] VITALS: BP 115/56
--- NOTE | 2020-04-05 19:00 | NUR ---
BEDSIDE REPORT RECEIVED AND CARE OF PT ASSUMED. PT LYING IN SUPINE POSITION TALKING ON THE PHONE. IV TO RIGHT AC PATENT WITH NS INFUSING AT 75 ML/HR. DEWEY CATHETER DRAINING TO GRAVITY WITH YELLOW URINE IN COLLECTION BAG. WILL MONITOR FOR NEEDS.
[2020-04-05 20:21] VITALS: BP 100/49
--- NOTE | 2020-04-05 21:45 | NUR ---
HS MEDS GIVEN. FSBS 196 THIS CHECK REQUIRING COVERAGE WITH 2 UNITS OF INSULIN PER SLIDING SCALE. WILL CONTINUE TO MONITOR FOR NEEDS.
--- NOTE | 2020-04-05 22:00 | NUR ---
PT TURNED ONTO LEFT SIDE AND KATHERINE'S PASTE APPLIED TO SORES ON COCCYX. POSITIONED FOR COMFORT.
[2020-04-06 00:25] VITALS: BP 98/52
[2020-04-06 04:10] VITALS: BP 138/58
--- NOTE | 2020-04-06 05:42 | NUR ---
IV WITH NUMEROUS OCCLUSION ALARMS IN AC. REMOVED WITH CATHETER TIP INTACT. RE-SITED TO RIGHT FA USING 20 GUAGE CATHETER IN ONE STICK. IV FLUIDS RE-STARTED.
[2020-04-06 05:54] LABS: ANION GAP 10.8 mmol/L (8-16); CARBON DIOXIDE 25.3 mmol/L (21.0-32.0); MAGNESIUM - SERUM 1.8 mg/dL (1.8-2.4); PHOSPHOROUS 3.4 mg/dL (2.5-4.9); POTASSIUM - SERUM 4.1 mmol/L (3.5-5.1)
[2020-04-06 05:58] LABS: CREATININE - SERUM 1.3 mg/dL (0.6-1.3)
[2020-04-06 06:02] LABS: HEMATOCRIT 28.4 % (42.0-54.0); HEMOGLOBIN 9.3 g/dL (13.5-17.5); LYMPHOCYTES 9.2 % (15-50); MCH 31.2 pg (26.0-34.0); MCHC 32.7 g/dL (31.0-37.0); MCV 95.3 fL (80.0-100.0); MEAN PLATELET VOLUME 9.9 fL (7.4-10.4); PLATELET COUNT 244 10x3/uL (130-400); RBC 2.98 10x6/uL (4.20-6.10); RDW 17.4 % (11.5-14.5); WBC 13.9 10x3/uL (4.8-10.8)
[2020-04-06 08:44] VITALS: BP 102/46
--- NOTE | 2020-04-06 10:51 | NUR ---
PT ALERT AND CONFUSED UPON ENTERING. PT AGREED TO PHYSICAL THERAPY, BREATHING TREATMENT, INSULIN AND THE FIRST 4 PILLS ADMINISTERED. HE THEN REFUSED THE REST OF HIS MEDICATION AT THIS TIME. RESTING COMFORTABLY IN BED. NEW SKIN TEAR TO THE LEFT ARM, CLEANED, COVERED WITH GAUZE AND TAPE. IV ANTIBIOTICS HUNG, IV IS TO THE RIGTH FOREARM. FAMILY AT BEDSIDE. DENIES ANY NEEDS. BED IN LOWEST POSITION, BED RAILS X2, CALL LIGHT WITHIN REACH. WILL CONTINUE TO MONITOR.
[2020-04-06 12:10] VITALS: BP 114/47
--- NOTE | 2020-04-06 13:49 | NUR ---
ADMINISTERED PRN MORPHINE FOR BACK PAIN 06/26. TOLERATED WELL. FAMILY AT BEDSIDE. DENIES ANY OTHER NEEDS. BED IN LOWEST POSITION, BED RAILS X2, CALL LIGHT WTIHIN REACH. WILL CONTINUE TO MONITOR.
--- NOTE | 2020-04-06 15:17 | NUR ---
PT UP RIGHT IN BED UPON ENTERING. ALERT AND ORIENTED TO SELF AND SITUATION ONLY. REFUSED MAGACE, TOOK TESSALON PERLE. SUGAR OF 190. ADMINISTERED 2 UNITS OF INSULIN PER SLIDING SCALE. ASSESSMENT PERFORMED AT THIS TIME. DENIES ANY NEEDS. BED IN LOWEST POSITION, BED RAILS X3, CALL LIGHT WITHIN REACH. WILL CONTINUE TO MONITOR.
[2020-04-06 16:07] VITALS: BP 128/56
--- NOTE | 2020-04-06 17:46 | NUR ---
HUNG IV FLUIDS AND IRON. PT IS UPRIGHT IN BED EATING DINNER. FAMILY AT BEDSIDE. DENIES ANY NEEDS. BED IN LOWEST POSITION, BED RAILS X2, CALL LIGHT WIHTIN REACH. WILL CONTINUE TO MONITOR.
--- NOTE | 2020-04-06 18:27 | NUR ---
I have reviewed this patient and I concur with the Shift Assessment completed by the Licensed Practical Nurse today this shift.
--- NOTE | 2020-04-06 18:56 | NUR ---
UPRIGHT IN BED RECEIVING BREATHING TREATMENT. GAVE 2 UNITS INSULIN PER SLIDING SCALE FOR SUGAR OF 173. DENIES ANY NEEDS. BED IN LOWEST POSITION, BED RAILS X2, CALL LIGHT WITHIN REACH. WILL CONTINUE TO MONITOR.
--- NOTE | 2020-04-06 19:00 | NUR ---
BEDSIDE REPORT RECEIVED AND CARE OF PT ASSUMED. PT LYING IN HIGH DYER'S POSITION WITH EYES CLOSED. IV TO RIGHT FA PATENT WITH NS INFUSING AT 75 ML/HR. DEWEY CATHETER DRAINING TO GRAVITY WITH YELLOW URINE IN COLLECTION BAG. DRESSINGS ON RIGHT HIP INTACT WITH SOME DRAINAGE. SCD'S IN PLACE ON BLE. WILL MONITOR FOR NEEDS.
--- NOTE | 2020-04-06 19:37 | NUR ---
RECEIVED ORDER TO START LOVENOX 30 MG SQ DAILY, AND D/C ASPIRIN AND PLAVIX. PT HAS ALREADY RECEIVED THESE TODAY, SO WILL START LOVENOX IN AM.
[2020-04-06 20:25] VITALS: BP 127/62
--- NOTE | 2020-04-06 20:40 | NUR ---
CHANGED TOP SHEET AND BLANKET AND REPLACED WITH SHEET AND WARM BLANKET.
--- NOTE | 2020-04-06 20:43 | NUR ---
HS MEDICATIONS GIVEN. WILL CONTINUE TO MONITOR FOR NEEDS.
--- NOTE | 2020-04-06 21:50 | NUR ---
CHANGED DRESSINGS ON RIGHT HIP. REPLACED WITH TELFA NON STICK PADS COVERED WITH CLEAR DRESSING.
--- NOTE | 2020-04-07 01:20 | NUR ---
PT VERY CONFUSED AND DISORIENTED TO TIME, PLACE, AND SITUATION. RE-POSITIONED IN BED HE HAD BOTH LEGS OFF THE BED. ATTEMPTED TO RE-ORIENT, TURNED ONTO LEFT SIDE PROPPED WITH PILLOWS. SIDE RAILS UP X3 AND BED ALARMS X2 IN USE FOR SAFETY. YELLOW GOWN, GRIPPER SOCKS, AND YELLOW BAND IN PLACE PER FALL PROTOCOL.
--- NOTE | 2020-04-07 03:29 | NUR ---
PT MOANING IN PAIN. GAVE PERCOCET PO PER PRN ORDER. WILL MONITOR FOR EFFECTIVENESS.
[2020-04-07 05:14] LABS: HEMATOCRIT 28.1 % (42.0-54.0); HEMOGLOBIN 9.3 g/dL (13.5-17.5); LYMPHOCYTES 8.7 % (15-50); MCH 31.6 pg (26.0-34.0); MCHC 33.1 g/dL (31.0-37.0); MCV 95.6 fL (80.0-100.0); MEAN PLATELET VOLUME 10.2 fL (7.4-10.4); NEUTROPHILS 85.5 % (40-80); PLATELET COUNT 224 10x3/uL (130-400); RBC 2.94 10x6/uL (4.20-6.10); RDW 17.3 % (11.5-14.5); WBC 12.4 10x3/uL (4.8-10.8)
[2020-04-07 05:28] LABS: ANION GAP 8.6 mmol/L (8-16); CARBON DIOXIDE 26.5 mmol/L (21.0-32.0); CREATININE - SERUM 1.3 mg/dL (0.6-1.3); PHOSPHOROUS 2.3 mg/dL (2.5-4.9); POTASSIUM - SERUM 4.1 mmol/L (3.5-5.1)
[2020-04-07 08:36] VITALS: BP 126/58
--- NOTE | 2020-04-07 09:00 | NUR ---
ASSESSMENT PER FLOW SHEET. PATIENT IS VERY SLEEPY AND HARD TO AROUSE THIS AM. HE IS WITHOUT NEEDS. AT BEDSIDE
--- NOTE | 2020-04-07 09:15 | NUR ---
TOOK A WHILE TO GIVE MEDS THIS AM. PATIENT IS CONFUSED AND NOT WANTING TO COOPERATE. COACHED HIM TO TAKING MEDS.STILL SLEEPY, BUT AGREES TO TRY AND EAT BREAKFAST. FALL PREVENTION IN PLACE
--- NOTE | 2020-04-07 10:50 | NUR ---
Rehab Prescreening Consult recieved and the chart has been reviewed. He is a good ARU candidate when he can tolerate 3 hrs of therapy daily 5 days a week. According to PT notes he did not ambulate much prior to surgery. Currently he is Max Assist x 2 for bed mobility. He has also not agreed to a SNF or rehab, but wants to go home. Will discuss in the IDT meeting today. Catalina Handley RN Clinical Liaison, Rehab
[2020-04-07 12:24] VITALS: BP 133/55
--- NOTE | 2020-04-07 12:43 | NUR ---
OT NOTE: PT SEEN FOR FIRST TIME FOLLOWING R IM NAILING SECONDARY TO FALL OUT OF BED OVER THE WEEKEND. PT VERY CONFUSED; DIFFICULTY FOLLOWING COMMANDS; YELLS OUT IN PAIN WITH ALL LE MOVEMENT (BOTH SIDES); MAX ASSIST X 2 FOR SUPINE TO SIT; MAX ASSIST FOR STATIC SITTING ON EOB..PT PUSHING TOWARDS L SIDE WITH ATTEMPTS TO OFFLOAD PRESSURE FROM HIP. UNABLE TO GET PT TO UNDERSTAND THE NEED FOR POSTURAL ALINGMENT TO MAINTAIN BALANCE. WITHOUT PHYSICAL ASSIST, PT FALLS TO SIDE WITH NOT ATTEMPTS TO RECORRECT. HE IS A AND O TO SELF ONLY. ABLE TO TOLERATE APPROX 5 MIN OF EOB; MAX ASSIST FOR SIT TO SUPINE; MAX ASSIST TO SCOOT UP IN BED. UNABLE TO PERFORM ANY ADLS WITHOUT ASSIST AT THIS TIME DUE TO CONFUSION. EDD GARCIA, OTR/L [phone]
--- NOTE | 2020-04-07 15:37 | NUR ---
BUTTOCKS/PERINEAL AREA EXCORIATED. CALMOSEPTINE BEING APPLIED BID AND PRN. SANTYL IS STILL BEING APPLIED DAILY ON WOUND ON RIGHT ANKLE.. WOUND CARE CONTINUES TO MONITOR.
[2020-04-07 16:15] VITALS: BP 126/59
--- NOTE | 2020-04-07 17:42 | NUR ---
STILL CONFUSED THIS AFTERNOON. HE YELLS AT PEOPLE WALKING IN [place].HE AT TIMES THINKS HE IS HOME.DOOR OPEN TO [facility].CONT PLAN OF CARE
--- NOTE | 2020-04-07 19:00 | NUR ---
BEDSIDE REPORT RECEIVED AND CARE OF PT ASSUMED. PT LYING IN HIGH DYER'S POSITION WATCHING TV...NOT ORIENTED TO SITUATION. IV TO RIGHT FA PATENT WITH NS INFUSING AT 75 ML/HR. DEWEY CATHETER DRAINING TO GRAVITY WITH YELLOW URINE IN COLLECTION BAG. BED ALARM IN USE X2 AND SIDE RAILS X3 FOR SAFETY. WILL MONITOR FOR NEEDS.
--- NOTE | 2020-04-07 20:00 | NUR ---
HS MEDICATIONS GIVEN. WILL CONTINUE TO MONITOR FOR NEEDS.
[2020-04-07 20:27] VITALS: BP 127/57
--- NOTE | 2020-04-07 20:30 | NUR ---
CALLED FOR UPDATE. TOLD HER THAT PT VERY CONFUSED AND THAT ALL MEDS THAT WOULD HELP HIM CALM DOWN HAD BEEN DISCONTINUED. SHE STATED TO CALL HER IF I NEEDED HER TO COME SIT WITH HIM.
--- NOTE | 2020-04-07 21:00 | NUR ---
ALARM SOUNDING...PT SLIDING OUT OF BED. PULLED BACK IN BED AND POSITIONED FOR COMFORT. BED ALARMS ON.
--- NOTE | 2020-04-08 00:10 | NUR ---
PT LYING IN HIGH DYER'S POSITION WIDE AWAKE...STILL CONFUSED BUT NOT CLIMBING OVER BEDRAILS AT THIS TIME. WILL CONTINUE TO MONITOR MARTINEZ. BED ALARMX X2 IN USE AND SIDE RAILS UP X3.
[2020-04-08 00:33] VITALS: BP 124/60
[2020-04-08 04:00] VITALS: BP 169/50
--- NOTE | 2020-04-08 05:08 | NUR ---
PT DID NOT SLEEP AT ALL THIS SHIFT...CAT NAPPED MAYBE 30 MINUTES TOTAL.
[2020-04-08 05:57] LABS: BASOPHILS 0.1 % (0-2); EOSINOPHILS 0.1 % (0-7); HEMATOCRIT 28.5 % (42.0-54.0); HEMOGLOBIN 9.2 g/dL (13.5-17.5); IMMATURE GRANULOCYTES 1.3 % (0-5); LYMPHOCYTES 10.8 % (15-50); MCH 31.4 pg (26.0-34.0); MCHC 32.3 g/dL (31.0-37.0); MCV 97.3 fL (80.0-100.0); MEAN PLATELET VOLUME 9.9 fL (7.4-10.4); MONOCYTES 10.7 % (2-11); PLATELET COUNT 238 10x3/uL (130-400); RBC 2.93 10x6/uL (4.20-6.10); RDW 16.7 % (11.5-14.5); WBC 13.9 10x3/uL (4.8-10.8)
[2020-04-08 06:30] LABS: CALCIUM 8.2 mg/dL (8.5-10.1); CARBON DIOXIDE 20.6 mmol/L (21.0-32.0); CHLORIDE - SERUM 109 mmol/L (98-107); PHOSPHOROUS 2.5 mg/dL (2.5-4.9); SODIUM 139 mmol/L (136-145); UREA NITROGEN 16 mg/dL (7-18)
[2020-04-08 06:32] LABS: CALC OSMOLALITY 279 mosm/kg (275-300); CREATININE - SERUM 0.9 mg/dL (0.6-1.3); GLUCOSE 124 mg/dL (74-106); POTASSIUM - SERUM 4.9 mmol/L (3.5-5.1); eGFR NON AFRICAN AMERICAN 89 mL/min (90-120)
[2020-04-08 09:01] VITALS: BP 171/73
[2020-04-08 12:37] VITALS: BP 158/76
--- NOTE | 2020-04-08 12:51 | NUR ---
OT NOTE: PT REMAINS CONFUSED BUT MORE ALERT TODAY. ATTEMPTING TO EAT BREAKFAST WITH EXTENSIVE SPILLAGE. EXTENDED AMOUNT OF TIME TO FEED SELF DUE TO EASILY DISTRACTED. MAX ASSIST FOR SUPINE TO SIT. PTS SITTING BALANCE WAS IMPROVED OVER YESTERDAY. PT REQUIRED FREQ CUES, BOTH VERBAL AND TACTILE, FOR UPRIGHT SITTING, HOWEVER, WAS ABLE TO SELF CORRECT MOST OF TIME.. YESTERDAY PT REQUIRED MAX ASSIST THE ENTIRE TIME IN SITTING. PT ABLE TO PERFORM ROM EXS WHILE SITTING ON EOB.. ASSIST REQUIRED FOR R LE. BACK TO BED WITH MAX ASSIST AND MAX ASSIST TO REPOSITION. PT REQUIRING EXTENSIVE ASSIST WITH ALL REMAINING ADLS. EDD GARCIA, OTR/L [phone]
--- NOTE | 2020-04-08 14:02 | EC ---
PATIENT:DEANA DUCKWORTH DATE OF SERVICE: 03/28/20 SEX: M MEDICAL RECORD: [id number] DATE OF : 48 LOCATION:[facility] AGE OF PATIENT: 69 ADMISSION DATE: 03/28/20 REFERRING PHYSICIAN: INTERPRETING PHYSICIAN: TRUMAN VASQUEZ MD ECHOCARDIOGRAM REPORT ECHO CHARGES 4 ECHO COMPLETE Date: 04/07/20 CLINICAL DIAGNOSIS: PVC ECHOCARDIOGRAPHIC MEASUREMENTS (adult normal given) AC root (d.<3.7cm) 3.6 cm LV Septum d (<1.2 cm> 0.9 cm Valve Excursion 2.1 cm LV Septum (systole) 1.5 cm Left Atria (s.<4.0cm> 3.3 cm LVPW d(<1.2cm) 1.2 cm RV (d.<2.3cm) 2.4 cm LVPW (sytole) 1.3 cm LV diastole(<5.6CM) 4.2 cm MV E-F(>70mm/sec) cm LV systole 3.1 cm LVOT Diameter 1.9 cm MV exc.(>10mm) cm Est.ejection fraction (50-75%) % DOPPLER: LVIT cm/sec A 110 cm/sec E 112 cm/sec LA cm/sec RVSP 17.0 mmHg LVOT 118 cm/sec AOP1/2T m/s Asc. Ao 124 cm/sec RVOT 107 cm/sec RA cm/sec PA 87 cm/sec AV Gradient Peak 6.2 mmHg AV Mean 3.7 mmHg AV Area 2.9 cm MV Gradient Peak 5.9 mmHg MV Mean 3.6 mmHg MV Area cm COMMENTS: Metal Caster: Oneil MELENDEZ Regional Engineer: 4 Dr. Vasquez TAPE# PACS Pericardial Effusion N DATE OF SERVICE: PROCEDURE: Transthoracic echocardiogram. FINDINGS: 1. Left ventricle was difficult to visualize, but overall appears to have normal to hyperdynamic function. Ejection fraction is at least 55%. 2. Left atrium again grossly is normal. Difficult to visualize. 3. Aortic valve appears to be normal structurally without any evidence of significant regurgitation or stenosis. ECHOCARDIOGRAM REPORT [id number] DEANA DUCKWORTH 4. Mitral valve appears to be grossly normal. 5. Tricuspid valve appears to be grossly normal and the PA pressure appears to be normal. 6. Right ventricle and right atrial structures appear to be grossly normal. TRANSINT:[id number] Voice Confirmation ID: [id number] DOCUMENT ID: [id number] TRUMAN VASQUEZ MD at 1402 CC: [id number] DICTATION DATE: 04/07/20 1642 AUTOMOTIVE SERVICE DIRECTOR: 04/08/20 0251 ADM IN [facility] [address] [id number]
--- NOTE | 2020-04-08 14:31 | NUR ---
OT NOTE: PT COMPLETED BUE AROM EXS WITH MIN A. PT IS EXHIBITING DIFFICULTY WITH SEQUENCING TASKS. PT IS CONFUSED. NURSING AWARE. PT COMPLETED SELF FEEDING OF BRINGING CUP TO MOUTH TASK WITH SETUP. PT COMPLETED POSITIONING IN BED WITH SBA. [phone] THANK YOU,ROBIN MIJARES
--- NOTE | 2020-04-08 15:23 | MORECARE ---
CASE MANAGEMENT DISCHARGE SUMMARY PATIENT: RM HUTSON UNIT: [id number] ADM DATE: 03/28/20 AGE: 69 : [birth year] SEX: M ROOM/BED: D.2214 AUTHOR: KOREY,DOC PHYSICIAN: REFERRING PHYSICIAN: MIGUELITO FLETCHER MD DATE OF SERVICE: 04/08/20 Discharge Plan Patient Name: RM HUTSON Facility: [facility]:[place] : 1950 Planned Disposition: Anticipated Discharge Date: Discharge Date: Expected LOS: Initial Reviewer: [email or web address] Initial Review Date: 03/28/2020 Generated: 04/08/20 4:23 pm Comments DCP- Discharge Planning Updated by [id number]: Lucía Gaspar on 04/08/20 2:[address] attempted to see patient's about discharge plan, but she was not there. Will try again tomorrow morning. DCP- Discharge Planning Updated by [email or web address]: Rachell Kerr on 04/03/20 6:[address] CM met with patient again today regarding DC plans. Patient states that his doctor at [facility] informed him that there was nothing else they could do for him. Questioned patient about Skilled or Home. Patient refuses Hospice at this time, states "I don't want it, I'll go home and my will take care of me". Patient's has already states that she cannot take care of him in his current condition. patient states " I want to go home". Encouraged patient to reconsider Rehab to improve his gait and balance. patient request CM to "come back tomorrow". CM will revisit again 04/04 DCP- Discharge Planning Updated by [id number]: Rachell Kerr on 04/02/20 6:[address] CM met with patient and his , Tanisha Hutson ([phone]) regarding DC plans/needs. Patient states he lives partially independent with his . States he has a ramp to enter the home. PCP: Dr. Fletcher. Pharmacy: [address] DME: 2 wheeled walker, Electric Scooter ([place]), tub bench, BSC, glucometer. HHS with [facility] is in the home prior to arrival. CM discussed additional services: HHS, Rehab, OP Therapy, Skilled for Rehab. Patient states that his balance is poor, he gets SOB with ambulation at times and has to take several rest breaks when attempting to ambulate. CM spoke with patient's , who states "I can't take care of him in his condition." Discussed Nursing skilled rehab in a facility. Dr. Barker also spoke with the patient regarding a skilled facility. Patient's is in agreement, but patient would like to think about and also contact his doctor at [facility], to determine additional care for his diagnosis. CM provided work cell number for contact. CM will follow and assist with DC planning PRN. Patient is reluctant to consider a nursing facility, but his states she cannot take care of him in the home, in his current condition. CM will revisit 04/03. DCPIA - Discharge Planning Initial Assessment Updated by [id number]: Rachell Kerr on 04/02/20 7:12 pm * Is the patient Alert and Oriented? Yes * How many steps to enter\\exit or inside your home? Ramp * PCP Dr. Fletcher * Pharmacy [address] * Preadmission Environment Home with Family * ADLs Partial Dependent * Partial ADLs (Assistance needed) Ambulation Bathing Transfers * Equipment Power Chair or Electric Scooter Shower Chair Tub Bench * Other Equipment Electric scooter supplied by [place] * List name and contact numbers for known caregivers / representatives who currently or will assist patient after discharge: Tanisha Hutson () [phone] * Verbal permission to speak to the caregivers and representatives has been obtained from the patient. Yes * Community resources currently utilized Home Health * Please name any agencies selected above. [facility] * Additional services required to return to the preadmission environment? Yes * Has this patient been hospitalized within the prior 30 days at any hospital? Yes Coverage Notice Reviewer: [id number] - Rachell Kerr Notice Issued Date-Time: 04/02/2020 19:06 Notice Type: IM Discharge Notice Notice Delivered To: Patient Relationship to Patient: Self Teletype Technician Name: Rm Hutson Delivery Method: - Bridgett Days: Prior Verbal Notification: Recipient Understood Notice: Recipient Signature: Med Rec Note Co-signed by Attending: Coverage Notice Comment: Last DP export: 04/03/20 6:39 p Patient Name: RM HUTSON Page [phone] at 1523 All edits/amendments must be made on the electronic document DICTATION DATE: 04/08/201522 OIL EXPERT: ALEENA 04/08/201522 RPT#: [id number] DC DATE: STATUS: ADM IN [facility] [address] [place] [address] END OF REPORT
[2020-04-08 16:47] VITALS: BP 120/72
--- NOTE | 2020-04-08 18:50 | NUR ---
REMAINS WITHOUT DISTRESS. STILL CONFUSED AT TIMES. WITHOUT CHANGE. CONT PLAN OF CARE
[2020-04-08 20:00] VITALS: BP 136/55
--- NOTE | 2020-04-08 21:00 | NUR ---
PT CONFUSED, MULTIPLE ATTEMPTS TO GIVE MEDS UNSUCCESSFUL. PT STATES "IM GOING TO WHOOP YOUR BUTT" HE DID LET THIS NURSE CHECK FSBS 147, NO LANTUS GIVEN, PT IS NOT EATING AND HAS NOT REQUIRED INSULIN COVERAGE. WILL CTM
--- NOTE | 2020-04-08 23:00 | NUR ---
REFUSED TO LET THIS NURSE CHECK FSBS
[2020-04-09] VITALS: BP 163/68
--- NOTE | 2020-04-09 03:00 | NUR ---
FSBS 88, REFUSES JUICE OR CRACKERS. WHEN ASKING PT WHAT HE WOULD LIKE TO SNACK ON HE STATES PIZZA. TOLD PT WE DID NOT HAVE ANY AND TOLD HIM WHAT WE DID HAVE, HE STATES HE DOES NOT WANT ANY OF THAT, THAT HE WANTS THE PIZZA HE BOUGHT LAST NIGHT AND PUT IN THE FRIDGE. REORIENTED PT TO BEING IN THE HOSPITAL BUT PT IS STILL CONFUSED BELIEVING HE IS HOME AND CALLING OUT FOR AND SON.
[2020-04-09 04:00] VITALS: BP 189/85
[2020-04-09 06:45] LABS: BASOPHILS 0.1 % (0-2); EOSINOPHILS 0.2 % (0-7); HEMATOCRIT 29.4 % (42.0-54.0); HEMOGLOBIN 9.6 g/dL (13.5-17.5); IMMATURE GRANULOCYTES 2.8 % (0-5); LYMPHOCYTES 11.7 % (15-50); MCH 30.9 pg (26.0-34.0); MCHC 32.7 g/dL (31.0-37.0); MEAN PLATELET VOLUME 9.7 fL (7.4-10.4); MONOCYTES 11.5 % (2-11); NEUTROPHILS 73.7 % (40-80); PLATELET COUNT 246 10x3/uL (130-400); RBC 3.11 10x6/uL (4.20-6.10); RDW 16.2 % (11.5-14.5); WBC 13.4 10x3/uL (4.8-10.8)
[2020-04-09 06:51] LABS: ALBUMIN 2.1 g/dL (3.4-5.0); ALKALINE PHOSPHATASE 246 U/L (30-120); ALT (SGPT) 19 U/L (10-68); BILIRUBIN - TOTAL 0.73 mg/dL (0.2-1.3); CALCIUM 8.4 mg/dL (8.5-10.1); CHLORIDE - SERUM 107 mmol/L (98-107); MAGNESIUM - SERUM 1.8 mg/dL (1.8-2.4); PHOSPHOROUS 2.9 mg/dL (2.5-4.9); PROTEIN - SERUM 5.6 g/dL (6.4-8.2); SODIUM 138 mmol/L (136-145); UREA NITROGEN 14 mg/dL (7-18); eGFR NON AFRICAN AMERICAN 78 mL/min (90-120)
[2020-04-09 06:52] LABS: CALC OSMOLALITY 275 mosm/kg (275-300); CARBON DIOXIDE 26.2 mmol/L (21.0-32.0); GLUCOSE 76 mg/dL (74-106); POTASSIUM - SERUM 3.6 mmol/L (3.5-5.1)
[2020-04-09 06:54] LABS: MCV 94.5 fL (80.0-100.0)
[2020-04-09 09:10] VITALS: BP 160/78
[2020-04-09 12:40] VITALS: BP 149/71
--- NOTE | 2020-04-09 14:45 | NUR ---
REHAB PRESCREENING Rehab has been following this patient since 04/07/20. Unfortunately he continues to require extensive assist with all ADL's and is only receiving bed mobility with PT. He is unable to tolerate the required 3 hours of therapy in order to meet ARU admission criteria. Thank you for this referral. Clair Pacheco, ELECTRICIAN BUS Rehab PD
--- NOTE | 2020-04-09 17:02 | NUR ---
OT NOTE: PT MORE LETHARGIC TODAY; MAX ASSIST X 2 FOR SUPINE TO SIT; MIN/MOD ASSIST WITH STATIC SITTING; MOD CUES AND MIN ASSIST FOR UE AROM EXS; PT WITH INCREASED PAIN TODAY; NURSING NOTIFIED; REMAINS CONFUSED AND DISORIENTED; MIN ASSIST WITH WASHING HANDS AND FACE; MAX ASSIST WITH DONNING GOWN AND SOCKS; MAX ASSIST WITH ROLLING SIDE TO SIDE; PILLOW PLACED BETWEEN LEGS TO PREVENT HIP ADD. EDD GARCIA, OTR/L [phone]
--- NOTE | 2020-04-09 17:05 | NUR ---
I have reviewed this patient and I concur with the Shift Assessment completed by the Licensed Practical Nurse today this shift.
--- NOTE | 2020-04-09 17:14 | NUR ---
OT NOTE: PT VERY CONFUSED. PT C/O PAIN. NURSING NOTIFIED. PT REQUIRED MAX A X2 FOR BED MOB TASKS. PT REQUIRED MAX A X2 FOR SUPINE TO SIT . PT REQUIRED MAX A FOR UB HYGIENE TASKS. PT COMPLETED EOB SITTING WITH MOD/MAX A SECONDARY TO LATERAL LEAN. PT REQUIRED MOD A FOR UE AAROM EXS. [phone] THANK YOU,ROBIN MIJARES
[2020-04-09 17:15] VITALS: BP 160/78
[2020-04-09 20:00] VITALS: BP 118/48
--- NOTE | 2020-04-09 20:00 | NUR ---
PT SITTING UP IN BED WITHOUT DISTRESS, CONFUSED BUT CONVERSIVE. IV RIGHT FA INFUSING NS @ 75. SCDS ON. RIGHT HIP DRESSING CDI. DEWEY IN PLACE. DENIES NEEDS AT THIS TIME. BED ALARM ON, CL IN REACH, WILL CTM
[2020-04-10] VITALS: BP 168/76
[2020-04-10 04:00] VITALS: BP 158/53
[2020-04-10 05:35] LABS: BASOPHILS 0.2 % (0-2); EOSINOPHILS 1.4 % (0-7); HEMATOCRIT 32.5 % (42.0-54.0); HEMOGLOBIN 10.7 g/dL (13.5-17.5); IMMATURE GRANULOCYTES 4.1 % (0-5); LYMPHOCYTES 16.3 % (15-50); MCH 30.7 pg (26.0-34.0); MCHC 32.9 g/dL (31.0-37.0); MCV 93.4 fL (80.0-100.0); MEAN PLATELET VOLUME 9.7 fL (7.4-10.4); MONOCYTES 11.6 % (2-11); NEUTROPHILS 66.4 % (40-80); PLATELET COUNT 246 10x3/uL (130-400); RBC 3.48 10x6/uL (4.20-6.10); RDW 16.2 % (11.5-14.5); WBC 11.9 10x3/uL (4.8-10.8)
[2020-04-10 06:10] LABS: ALBUMIN 2.1 g/dL (3.4-5.0); ALKALINE PHOSPHATASE 241 U/L (30-120); ALT (SGPT) 20 U/L (10-68); CALC OSMOLALITY 278 mosm/kg (275-300); CALCIUM 8.4 mg/dL (8.5-10.1); CARBON DIOXIDE 23.5 mmol/L (21.0-32.0); CHLORIDE - SERUM 108 mmol/L (98-107); GLUCOSE 90 mg/dL (74-106); MAGNESIUM - SERUM 1.7 mg/dL (1.8-2.4); PHOSPHOROUS 3.1 mg/dL (2.5-4.9); POTASSIUM - SERUM 3.6 mmol/L (3.5-5.1); PROTEIN - SERUM 5.6 g/dL (6.4-8.2); SODIUM 139 mmol/L (136-145); UREA NITROGEN 14 mg/dL (7-18); eGFR NON AFRICAN AMERICAN 78 mL/min (90-120)
--- NOTE | 2020-04-10 07:30 | NUR ---
ALERT AND ORIENTED TO SELF. LUNGS CLEAR BILATERALLY. HEART SOUNDS S1 AND S2 HEARD IN ALL FERRELL. BOWEL SOUNDS ACTIVE X 4. IV TO RFA PATENT WITHOUT REDNESS. DRSGS TO LEFT ARM AND RIGHT ANKLE C/D/I. DENIES NEEDS. BED LOW. BED ALARM ON. CALL MOORE AND PERSONAL ITEMS IN REACH. WILL CONTINUE TO MONITORL.
--- NOTE | 2020-04-10 10:03 | NUR ---
PATIENT EXTREMELY CONFUSED. PT WORKING WITH PATIENT NOW TO GET UP IN CHAIR.
--- NOTE | 2020-04-10 10:14 | NUR ---
Nutrition follow-up: Pt receiving a regular diet with po intake ~50% of meals Pt very confused per nurse PT getting pt up to chair Labs reviewed WT: 208# RDN following.
--- NOTE | 2020-04-10 10:15 | NUR ---
UP IN CHAIR AT BEDSIDE.
--- NOTE | 2020-04-10 11:03 | NUR ---
DRSG CHANGED TO RIGHT ANKLE PER ORDER.
[2020-04-10 11:05] VITALS: BP 173/82
--- NOTE | 2020-04-10 11:33 | NUR ---
REFUSES SECOND DOSE MAGNESIUM.
--- NOTE | 2020-04-10 12:18 | NUR ---
OT NOTE: PT WAS ALREADY SITTING UP IN CHAIR.. WANTING TO GO BACK TO BED. SITTING BALANCE WAS POOR AND HE WAS LEANING HARD TO L SIDE WHILE IN CHAIR (SAME THING HE DOES ON EOB). MAX ASSIST FOR UPRIGHT SITTING IN CHAIR, HOWEVER, PT PERFORMED SIT TO STAND WITH MIN/MOD ASSIST X 2 WITH WALKER; WAS ABLE TO TAKE SEVERAL STEPS TO BED WITH WALKER BUT ALSO ABLE TO STAND UPRIGHT ( NOT LEANING TO L SIDE??) I FEEL HE IS OFF SETTING WT FROM R HIP TOWARDS L SIDE WHEN SITTING, HOWEVER, HE IS UNABLE TO PUSH HIMSELF UP WITH HIS L ARM. BACK TO BED IN SUPINE POSITION WITH MAX ASSIST. PT DID PERFORM ROLLING FROM SIDE TO SIDE WITH SLIGHTLY LESS ASSISTANCE TODAY AND ALSO IMPROVEMENT WITH 1 STEP COMMANDS. MAX ASSIST WITH TOILET HYGIENE AND LE DRESSING. HOWEVER, OVERALL, PT DOING BETTER TODAY. EDD GARCIA, OTR/L [phone]
[2020-04-10 15:07] VITALS: BP 139/65
[2020-04-10 18:58] VITALS: BP 121/69
[2020-04-10 20:00] VITALS: BP 139/69
[2020-04-11] VITALS: BP 115/61
--- NOTE | 2020-04-11 03:44 | NUR ---
I have reviewed this patient and I concur with the Shift Assessment completed by the Licensed Practical Nurse today this shift.
[2020-04-11 04:00] VITALS: BP 160/63
[2020-04-11 05:27] LABS: ALBUMIN 2.2 g/dL (3.4-5.0); ALKALINE PHOSPHATASE 231 U/L (30-120); ALT (SGPT) 18 U/L (10-68); BILIRUBIN - TOTAL 0.89 mg/dL (0.2-1.3); CALCIUM 8.3 mg/dL (8.5-10.1); CARBON DIOXIDE 22.2 mmol/L (21.0-32.0); CHLORIDE - SERUM 105 mmol/L (98-107); PROTEIN - SERUM 5.7 g/dL (6.4-8.2); SODIUM 136 mmol/L (136-145); eGFR NON AFRICAN AMERICAN 78 mL/min (90-120)
[2020-04-11 05:32] LABS: CALC OSMOLALITY 276 mosm/kg (275-300); GLUCOSE 161 mg/dL (74-106)
[2020-04-11 05:33] LABS: UREA NITROGEN 19 mg/dL (7-18)
[2020-04-11 05:47] LABS: BASOPHILS 0.1 % (0-2); EOSINOPHILS 0 % (0-7); HEMATOCRIT 30.6 % (42.0-54.0); HEMOGLOBIN 10.2 g/dL (13.5-17.5); IMMATURE GRANULOCYTES 2.5 % (0-5); LYMPHOCYTES 9.3 % (15-50); MCH 31.5 pg (26.0-34.0); MCHC 33.3 g/dL (31.0-37.0); MCV 94.4 fL (80.0-100.0); MEAN PLATELET VOLUME 10.3 fL (7.4-10.4); MONOCYTES 5.3 % (2-11); NEUTROPHILS 82.8 % (40-80); PLATELET COUNT 274 10x3/uL (130-400); RBC 3.24 10x6/uL (4.20-6.10); RDW 16.3 % (11.5-14.5); WBC 14.5 10x3/uL (4.8-10.8)
--- NOTE | 2020-04-11 07:27 | NUR ---
PT IS RESTING IN BED WITH EYES OPEN. RESPIRATIONS ARE EVEN AND UNLABORED. PT IS CONFUSED X 3. PT REORIENTED TO TIME/PLACE.SITUATION. PIV TO RIGHT FA INFUSING PER ORDER AND WITHOUT DIFFICULTY. SCDS TO BLE. PT DENIES PRESENCE OF PAIN/N/V AT THIS TIME. ALL FALL PRECAUTIONS ARE IN PLACE. BED IS IN THE LOWEST POSITION. CALL LIGHT AND BEDSIDE TABLE ARE WITHIN REACH. SIDE RAILS X 2. PT DENIES FURTHER NEEDS. WILL CONT TO MONITOR.
[2020-04-11] MEDS ORDERED: IPRAT-ALBUT 0.5-3 ML UPD (09:24)
[2020-04-11] MEDS ORDERED: LOVENOX40 MG/0.4 SC (09:24)
[2020-04-11] MEDS ORDERED: TESSALON PERLE100 MG PO (09:25)
[2020-04-11] MEDS ORDERED: DURAGESIC1 EAC3 TRANSDERM (09:25)
[2020-04-11] MEDS ORDERED: COLACE100 MG PO (09:25)
[2020-04-11] MEDS ORDERED: MUCINEX600 MG PO (09:25)
[2020-04-11] MEDS ORDERED: PEPCID PO (09:25)
[2020-04-11] MEDS ORDERED: LANTUS INS100 UNITS/ SC (09:26)
[2020-04-11] MEDS ORDERED: HUMULIN R100 UNIT/1 SC (09:26)
[2020-04-11] MEDS ORDERED: MEGACE400 MG/10 PO (09:26)
[2020-04-11] MEDS ORDERED: SANTYL30 GM TOPICAL (09:27)
[2020-04-11] MEDS ORDERED: DECADRON4 MG PO (09:27)
[2020-04-11 09:41] VITALS: BP 147/62
--- NOTE | 2020-04-11 11:20 | NUR ---
ATTEMPT MADE TO CALL REPORT TO REHAB. UNABLE TO GIVE REPORT. STAFF MEMBER THAT ANSWERED PHONE STATES "I WILL CALL YOU BACK WHEN I FIND OUT WHAT ROOM HE IS ASSIGNED TO". WILL AWAIT FOR RETURN PHONE CALL.
--- NOTE | 2020-04-11 11:21 | NUR ---
PT WITH EPISODE OF BOWEL INCONTINENCE. LINEN CHANGED AND PT CLEANED. MEPILEX DRESSING APPLIED TO PT COCCYX OVER REDDENED AREA. ALL FALL PRECAUTIONS IN PLACE. BED IS IN THE LOWEST POSITION. CALL LIGHT AND BEDSIDE TABLE ARE WITHIN REACH. SIDE RAILS X 2. PT DENIES FURTHER NEEDS. WILL CONT TO MONITOR.
--- NOTE | 2020-04-11 12:14 | MORECARE ---
CASE MANAGEMENT DISCHARGE SUMMARY PATIENT: RM HUTSON UNIT: [id number] ADM DATE: 03/28/20 AGE: 69 : 49 SEX: M ROOM/BED: D.2218 AUTHOR: KOREY,DOC PHYSICIAN: REFERRING PHYSICIAN: MIGUELITO FLETCHER MD DATE OF SERVICE: 04/11/20 Discharge Plan Patient Name: RM HUTSON Facility: [facility]:[place] : 1950 Planned Disposition: Inpatient Rehab Anticipated Discharge Date: Discharge Date: Expected LOS: Initial Reviewer: [email or web address] Initial Review Date: 03/28/2020 Generated: 04/11/20 1:13 pm Comments DCP- Discharge Planning Updated by [id number]: Lucía Gaspar on 04/11/20 11:[address] Patient will be discharging to inpatient rehab today, room 1117a. [facility] served and explained to son. I have spoken with his to let her know also. CM will continue to follow and assist with dc planning as needed DCP- Discharge Planning Updated by [email or web address]: Lucía Gaspar on 04/08/20 2:[address] attempted to see patient's about discharge plan, but she was not there. Will try again tomorrow morning. DCP- Discharge Planning Updated by [email or web address]: Rachell Kerr on 04/03/20 6:[address] CM met with patient again today regarding DC plans. Patient states that his doctor at [facility] informed him that there was nothing else they could do for him. Questioned patient about Skilled or Home. Patient refuses Hospice at this time, states "I don't want it, I'll go home and my will take care of me". Patient's has already states that she cannot take care of him in his current condition. patient states " I want to go home". Encouraged patient to reconsider Rehab to improve his gait and balance. patient request CM to "come back tomorrow". CM will revisit again 04/04 DCP- Discharge Planning Updated by [email or web address]: Rachell Kerr on 04/02/20 6:[address] CM met with patient and his , Tanisha Hutson ([phone]) regarding DC plans/needs. Patient states he lives partially independent with his . States he has a ramp to enter the home. PCP: Dr. Fletcher. Pharmacy: [address] DME: 2 wheeled walker, Electric Scooter ([employer]), tub bench, BSC, glucometer. HHS with [facility] is in the home prior to arrival. CM discussed additional services: HHS, Rehab, OP Therapy, Skilled for Rehab. Patient states that his balance is poor, he gets SOB with ambulation at times and has to take several rest breaks when attempting to ambulate. CM spoke with patient's , who states "I can't take care of him in his condition." Discussed Nursing skilled rehab in a facility. Dr. Barker also spoke with the patient regarding a skilled facility. Patient's is in agreement, but patient would like to think about and also contact his doctor at [facility], to determine additional care for his diagnosis. CM provided work cell number for contact. CM will follow and assist with DC planning PRN. Patient is reluctant to consider a nursing facility, but his states she cannot take care of him in the home, in his current condition. CM will revisit 04/03. DCPIA - Discharge Planning Initial Assessment Updated by [id number]: Rachell Kerr on 04/02/20 7:12 pm * Is the patient Alert and Oriented? Yes * How many steps to enter\\exit or inside your home? Ramp * PCP Dr. Fletcher * Pharmacy [address] * Preadmission Environment Home with Family * ADLs Partial Dependent * Partial ADLs (Assistance needed) Ambulation Bathing Transfers * Equipment Power Chair or Electric Scooter Shower Chair Tub Bench * Other Equipment Electric scooter supplied by [place] * List name and contact numbers for known caregivers / representatives who currently or will assist patient after discharge: Tanisha Hutson () [phone] * Verbal permission to speak to the caregivers and representatives has been obtained from the patient. Yes * Community resources currently utilized Home Health * Please name any agencies selected above. [facility] * Additional services required to return to the preadmission environment? Yes * Has this patient been hospitalized within the prior 30 days at any hospital? Yes Coverage Notice Reviewer: [id number] - Rachell Kerr Notice Issued Date-Time: 04/02/2020 19:06 Notice Type: IM Discharge Notice Notice Delivered To: Patient Relationship to Patient: Self Product Controller Name: Rm Hutson Delivery Method: HAND - Hand Delivered Bridgett Days: Prior Verbal Notification: Recipient Understood Notice: Yes Recipient Signature: Yes Med Rec Note Co-signed by Attending: Coverage Notice Comment: Reviewer: [email or web address] Ynes Gaspar Notice Issued Date-Time: 04/11/2020 12:00 Notice Type: IM Discharge Notice Notice Delivered To: Family Member Relationship to Patient: Son Product Controller Name: Delivery Method: - Bridgett Days: Prior Verbal Notification: Recipient Understood Notice: Recipient Signature: Med Rec Note Co-signed by Attending: Coverage Notice Comment: Last DP export: 04/08/20 2:23 p Patient Name: RM HUTSON Page [phone] at 1214 All edits/amendments must be made on the electronic document DICTATION DATE: 04/11/20 1213 DIRECTOR OF SURGERY: ALEENA 04/11/20 1213 RPT#: [id number] DC DATE: STATUS: ADM IN [facility] [address] [place] [address] END OF REPORT
--- NOTE | 2020-04-11 12:38 | NUR ---
REPORT CALLED TO VISHNU WALSH RN IN REHAB. NO FURTHER QUESTIONS.
--- NOTE | 2020-04-11 13:09 | NUR ---
ALL DISCHARGE INSTRUCTIONS COVERED WITH PT SON AT BEDSIDE. OK FROM PT SPOOUSE FOR PT SON TO SIGN ALL DISCHARGE PAPERS. PT SON SIGNED DISCHARGE PAPERS. ALL SIGNED DISCHARGE PAPERS PLACED IN PT CHART. PIV REMOVED FROM RIGHT FA. CATHETER TIP INTACT. DRESSING APPLIED. PT TO DISCHARGE TO REHAB WITH [facility] CATHETER PER SHANNAN STEVENS APRN. PT REQUESTS TO FINISH LUNCH PRIOR TO TRANPORT TO REHAB. PT SON TO NOTIFY WHEN PT IS FINISHED WITH LUNCH AND READY FOR TRANSPORT.
--- NOTE | 2020-04-11 14:00 | NUR ---
PT TRANSPORTED FROM ROOM VIA BED WITH PERSONAL BELONGINGS TO REHAB ROM 1118I. PT SON DENIES FURTHER QUESTIONS/CONCERNS/NEEDS AT THIS TIME.
--- NOTE | 2020-04-12 09:46 | MORECARE ---
CASE MANAGEMENT DISCHARGE SUMMARY PATIENT: RM HUTSON UNIT: [id number] ADM DATE: 03/28/20 AGE: 69 : 48 SEX: M ROOM/BED: D.2218 AUTHOR: KOREY,DOC PHYSICIAN: REFERRING PHYSICIAN: MIGUELITO FLETCHER MD DATE OF SERVICE: 04/12/20 Discharge Plan Patient Name: RM HUTSON Facility: [facility]:[place] : 1950 Planned Disposition: Inpatient Rehab Anticipated Discharge Date: Discharge Date: 04/11/2020 Expected LOS: Initial Reviewer: [email or web address] Initial Review Date: 03/28/2020 Generated: 04/12/20 10:46 am Comments DCP- Discharge Planning Updated by [email or web address]: Lucía Gaspar on 04/11/20 11:[address] Patient will be discharging to inpatient rehab today, room 1117[facility] served and explained to son. I have spoken with his to let her know also. CM will continue to follow and assist with dc planning as needed DCP- Discharge Planning Updated by [email or web address]: Lucía Gaspar on 04/08/20 2:[address] attempted to see patient's about discharge plan, but she was not there. Will try again tomorrow morning. DCP- Discharge Planning Updated by [email or web address]: Rachell Kerr on 04/03/20 6:[address] CM met with patient again today regarding DC plans. Patient states that [facility] informed him that there was nothing else they could do for him. Questioned patient about Skilled or Home. Patient refuses Hospice at this time, states "I don't want it, I'll go home and my will take care of me". Patient's has already states that she cannot take care of him in his current condition. patient states " I want to go home". Encouraged patient to reconsider Rehab to improve his gait and balance. patient request CM to "come back tomorrow". CM will revisit again 04/04 DCP- Discharge Planning Updated by [id number]: Rachell Kerr on 04/02/20 6:[address] CM met with patient and his , Tanisha Hutson ([phone]) regarding DC plans/needs. Patient states he lives partially independent with his . States he has a ramp to enter the home. PCP: Dr. Fletcher. Pharmacy: [address] DME: 2 wheeled walker, Electric Scooter ([place]), tub bench, BSC, glucometer. HHS with [facility] is in the home prior to arrival. CM discussed additional services: HHS, Rehab, OP Therapy, Skilled for Rehab. Patient states that his balance is poor, he gets SOB with ambulation at times and has to take several rest breaks when attempting to ambulate. CM spoke with patient's , who states "I can't take care of him in his condition." Discussed Nursing skilled rehab in a facility. Dr. Barker also spoke with the patient regarding a skilled facility. Patient's is in agreement, but patient would like to think about and also contact his doctor [facility], to determine additional care for his diagnosis. CM provided work cell number for contact. CM will follow and assist with DC planning PRN. Patient is reluctant to consider a nursing facility, but his states she cannot take care of him in the home, in his current condition. CM will revisit 04/03. DCPIA - Discharge Planning Initial Assessment Updated by [id number]: Rachell Kerr on 04/02/20 7:12 pm * Is the patient Alert and Oriented? Yes * How many steps to enter\\exit or inside your home? Ramp * PCP Dr. Fletcher * Pharmacy [address] * Preadmission Environment Home with Family * ADLs Partial Dependent * Partial ADLs (Assistance needed) Ambulation Bathing Transfers * Equipment Power Chair or Electric Scooter Shower Chair Tub Bench * Other Equipment Electric scooter supplied by [place] * List name and contact numbers for known caregivers / representatives who currently or will assist patient after discharge: Tanisha Hutson () [phone] * Verbal permission to speak to the caregivers and representatives has been obtained from the patient. Yes * Community resources currently utilized Home Health * Please name any agencies selected above. [facility] * Additional services required to return to the preadmission environment? Yes * Has this patient been hospitalized within the prior 30 days at any hospital? Yes Coverage Notice Reviewer: [id number] - Rachell Kerr Notice Issued Date-Time: 04/02/2020 19:06 Notice Type: IM Discharge Notice Notice Delivered To: Patient Relationship to Patient: Self Air Conditioning Coil Assembler Name: Rm Hutson Delivery Method: HAND - Hand Delivered Bridgett Days: Prior Verbal Notification: Recipient Understood Notice: Yes Recipient Signature: Yes Med Rec Note Co-signed by Attending: Coverage Notice Comment: Reviewer: [id number] - Lucía Gaspar Notice Issued Date-Time: 04/11/2020 12:00 Notice Type: IM Discharge Notice Notice Delivered To: Family Member Relationship to Patient: Son Air Conditioning Coil Assembler Name: Delivery Method: - Bridgett Days: Prior Verbal Notification: Recipient Understood Notice: Recipient Signature: Med Rec Note Co-signed by Attending: Coverage Notice Comment: Last DP export: 04/11/20 11:14 a Patient Name: RM HUTSON Page [phone] at 0946 All edits/amendments must be made on the electronic document DICTATION DATE: 04/12/20945 FIRST COAT SANDER: ALEENA 04/12/20 0946 RPT#: [id number] DC DATE:04/11/20 [facility]US: [facility] [address] [place] [address] END OF REPORT
== END 2020-04-11 14:00 | DRG 981 ==
LOC: D.MS 11:20
PROVIDERS: Emergency Medicine; Family Medicine; Internal Medicine Hematology & Oncology; Orthopaedic Surgery; ADMIT Emergency Medicine; ATTEND Emergency Medicine
PROC: 0QH736Z Insertion of Intramedullary Internal Fixation Device into Left Upper Femur, Percutaneous Approach (ICD-10-PCS; principal; 2020-04-04 15:45)
DX: E11.628 Type 2 diabetes mellitus with other skin complications (principal); G93.6 Cerebral edema; S72.141A Displaced intertrochanteric fracture of right femur, initial encounter for closed fracture; L03.116 Cellulitis of left lower limb; L03.115 Cellulitis of right lower limb; C79.31 Secondary malignant neoplasm of brain; D62 Acute posthemorrhagic anemia; E11.65 Type 2 diabetes mellitus with hyperglycemia; C07 Malignant neoplasm of parotid gland; J44.9 Chronic obstructive pulmonary disease, unspecified; I65.22 Occlusion and stenosis of left carotid artery; D53.9 Nutritional anemia, unspecified; N17.9 Acute kidney failure, unspecified; I73.9 Peripheral vascular disease, unspecified; D50.9 Iron deficiency anemia, unspecified; K59.00 Constipation, unspecified; E86.0 Dehydration; W19.XXXA Unspecified fall, initial encounter; Y92.239 Unspecified place in hospital as the place of occurrence of the external cause; F32.9 Major depressive disorder, single episode, unspecified; I49.3 Ventricular premature depolarization; M54.5 Low back pain; R41.0 Disorientation, unspecified; Z86.73 Personal history of transient ischemic attack (TIA), and cerebral infarction without residual deficits

== ENCOUNTER 2020-04-11 13:12 | Inpatient (IN) | payer MEDICARE, OTHER ==
[~2020-04-11] VITALS: Ht 203.2 cm; Wt 104.3 kg
[~2020-04-11 13:12] MED LIST changes: +DECADRON4 MG PO; +DURAGESIC1 EAC3 TRANSDERM; +HUMULIN R100 UNIT/1 SC; +LANTUS INS100 UNITS/ SC; +LOVENOX40 MG/0.4 SC; +MEGACE400 MG/10 PO; +PEPCID PO; +SANTYL30 GM TOPICAL
--- NOTE | 2020-04-11 14:38 | NUR ---
PATIENT QUIT DURING FIRST SEQUENCE OF THE MRI. STATED HE WAS UNABLE TO BREATH LAYING DOWN AND DID NOT WANT TO DO THE MRI. HIS NURSE GONZALO AND ROXANNA STEVENS WERE INFORMED. MULTIPLE ATTEMPTS TO CALL DR REEVES WERE UNSUCCESSFUL.
--- NOTE | 2020-04-11 15:05 | NUR ---
PATIENT ADMITTED TO [facility] FROM ACUTE FLOOR. HIS PCP IS DR. SCOTT AND IS A CLIENT OF [facility]. DME AT HOME IS A WALKER, ELECTRIC WHEELCHAIR AND A WHEELCHAIR. DISCHARGE PLANS ARE FOR [facility] TO [facility] WITH FAMILY. WILL CONTINUE TO FOLLOW WITH PATIENT.
--- NOTE | 2020-04-11 18:51 | NUR ---
PT FOUND IN FLOOR IN HIS ROOM HALF HANGING OUT OF BED. HIS FEED WERE IN BED AND REST OF BODY IN FLOOR. HE WAS CONFUSED AND SAYING HE WANTED TO GET IN THE CAR. SKIN TEAR NOTED TO LUE. PT C/O PAIN TO RT HIP. XR ORDERED. PT ASSISTED TO GET BACK IN BED WITH X5 STAFF. TOTAL AND COMPLETE HEAD TO TOE ASSESSMENT DONE. PT'S SON WALKED IN WHILE PT WAS BEING LIFTED INTO BED. DR SCTOT NOTIFIED. PT IS BEING MONITORED WITH NEURO CHECKS Q2 HRS
[2020-04-11 19:22] VITALS: BP 136/55; BMI 25.3
--- NOTE | 2020-04-11 19:59 | NUR ---
RESTING IN BED. RESPIRATIONS UNLABORED. SON AT BEDSIDE. XRAY RESULTS DISCUSSED WITH SON. NO ACUTE DISTRESS NOTED. CALL LIGHT IN REACH.
[2020-04-11 21:41] VITALS: BP 146/56
--- NOTE | 2020-04-11 22:00 | NUR ---
SLEEPING WITH RESPIRAITONS UNLABORED. DEWEY PATENT. NO ACUTE DISTRESS NOTED.
--- NOTE | 2020-04-12 00:05 | NUR ---
CONTINUES RESTING IN BED WITH EYES CLOSED AND RESPIRAITONS UNLABORED. NO DISTRESS NOTED. DEWEY PATENT. SAFETY MEASURES IN PLACE.
--- NOTE | 2020-04-12 03:30 | NUR ---
CONTINUES SLEEPING WITH RESPIRAITONS UNLABORED. NO DISTRESS NOTED.
--- NOTE | 2020-04-12 05:19 | NUR ---
QUIET HOURS. NO ACUTE CHANGES IN CONDITION. HAS SLEPT WELL TONIGHT. AWAKENS EASILY. DEWEY PATENT. RESPIRATIONS UNLABORED. NO ACUTE DISTRESS NOTED. CALL LIGHT IN REACH.
[2020-04-12 06:03] LABS: BILIRUBIN NEGATIVE (NEGATIVE); GLUCOSE NEGATIVE (NEGATIVE); KETONE NEGATIVE (NEGATIVE); NITRITE NEGATIVE (NEGATIVE); SPECIFIC GRAVITY 1.015 (1.005-1.020); UROBILINOGEN NORMAL (NORMAL)
[2020-04-12 08:00] VITALS: BP 137/63
--- NOTE | 2020-04-12 09:23 | NUR ---
DOING NEURO CHECKS WITH SEDATION ASSESSMENT X2 HRS. NO CHANGE IN NEURO STATUS SO FAR. IN ROOM WITH PT. SHE IS TRYING TO FEED HIM BREAKFAST BUT HIS DOES NOT WANT ANY BREAKFAST. WOULD NOT EAT FOR NURSE EITHER. DR SCOTT ROUNDED THIS MORNING AND TALKED WITH ABOUT TAKING PT HOME ON HOSPICE....
--- NOTE | 2020-04-12 13:40 | NUR ---
INSULIN HELD TO SEE HOW MUCH LUNCH HE WOULD EAT. CAME UP TO UNIT TO FEED PT AND HE ATE BETTER. HE IS CONSTANTLY CONFUSED AND DISORIENTED. HE THOUGHT HE WAS IN [facility] THIS MORNING. WHEN HE REALIZED HE WAS IN [place] HE STARTED TO CRY. IS HAVING SOFT NONFORMED BM'S. F/C PATENT WITH CLOUDY URINE. MAX ASST WITH TASKS.
--- NOTE | 2020-04-12 16:21 | NUR ---
IF FINALLY RESTING QUIETLY AND STILL IN HIS BED. EYES CLOSED. RESP EFFORT NON LABORED. HAS BEEN TRYING TO CLIMB OUT OF BED ALL DAY. STAYS IN BED WHEN AROUND BUT WHEN HE DOES NOT HAVE VISITOR HE STARTS SWINGING HIS LEGS OVER SIDE OF MATTRESS AND RAIL. HIS CONFUSION SEEMS TO HAVE INCREASED. BED IN LOWEST POSITION, SIDE RAILS UP X 3, OVER BED TABLE AT BEDSIDE WITH WATER, CELL PHONE IN BED WITH HIM, CALL LIGHT IN REACH, BED ALARM IN USE AND ON, DOOR OPEN TO SEE PT FROM [place]. WILL CONTINUE TO MONITOR.
--- NOTE | 2020-04-12 18:21 | NUR ---
LAYING IN BED TALKING TO . SHE REFUSED SUPPER SO NO INSULIN GIVEN. HE REMAINS VERY CONFUSED.
[2020-04-12 19:17] VITALS: BP 149/64
--- NOTE | 2020-04-12 19:20 | NUR ---
AWAKE AND ALERT BUT CONFUSED. DISORIENTED TO PLACE TIME AND SITUATION. ORIENTED TO PERSON. RESPIRATIONS UNLABORED. DEWEY PATENT. DRESSING INTACT TO RIGHT FOOT. SAFETY MEASURES IN PLACE.
--- NOTE | 2020-04-12 22:00 | NUR ---
RESTING IN BED WITH EYES CLOSED AND RESIRAITONS UNLABORED. NO DISTRESS NOTED.
--- NOTE | 2020-04-13 00:05 | NUR ---
CONTINUES SLEEPING WITH RESPIRATIONS UNLABORED. DEWEY PATENT. NO DISTRESS NOTED. CALL LIGHT IN REACH.
--- NOTE | 2020-04-13 02:49 | NUR ---
EYES CLOSED. RESPIRAITONS UNLABORED AT 18/MINUTE. NO DISTRESS NOTED. DEWEY PATENT AND DRAINING AT BEDISIDE.
--- NOTE | 2020-04-13 05:52 | NUR ---
QUIET HOURS. NO ACUTE CHANGES IN CONDITION THIS SHIFT. RESTING IN BED WITH NO DISTRESS NOTED.
[2020-04-13 07:15] VITALS: BP 142/64
--- NOTE | 2020-04-13 07:30 | NUR ---
PATIENT AWAKE AND SITTING UP IN BED. CONFUSED. ORIENTED TO PERSON ONLY. 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 PATIENT REPOSITIONED FOR COMFORT. DENIES HAVING ANY PAIN OR NEEDS AT THIS TIME. CONTINUE PLAN OF CARE.
--- NOTE | 2020-04-13 19:34 | NUR ---
AWAKE AND ALERT. NOTED CONFUSED. RESTING IN BED WITH RESPIRATIONS UNLABORED. ZULEIMA PATENT. CALL LIGHT IN REACH.
[2020-04-13 19:43] VITALS: BP 116/61
--- NOTE | 2020-04-13 21:35 | NUR ---
MEDICATED FOR PAIN. SEE MAR. RESPIRATIONS UNLABORED.
--- NOTE | 2020-04-13 23:28 | NUR ---
SLEEPING WITH NO DISTRESS NOTED. DEWEY PATENT.
--- NOTE | 2020-04-14 02:00 | NUR ---
CONTINUES SLEEPING. NO CHANGE IN CONDITION. RESPIRAITONS UNLABORED.
--- NOTE | 2020-04-14 03:15 | NUR ---
MEDICATED FOR C/O PAIN IN HIP. REMINDED TO NOT GET OUT OF BED WITHOUT CALLING FOR ASSISTANCE. VOICES UNDERSTANDING.
[2020-04-14 07:32] LABS: HEMATOCRIT 33.6 % (42.0-54.0); HEMOGLOBIN 11.1 g/dL (13.5-17.5); MCH 31.5 pg (26.0-34.0); MCV 95.5 fL (80.0-100.0); MEAN PLATELET VOLUME 9.7 fL (7.4-10.4); PLATELET COUNT 322 10x3/uL (130-400); RBC 3.52 10x6/uL (4.20-6.10); RDW 16.6 % (11.5-14.5)
[2020-04-14 07:46] LABS: CALC OSMOLALITY 280 mosm/kg (275-300); CALCIUM 8.8 mg/dL (8.5-10.1); CARBON DIOXIDE 25.7 mmol/L (21.0-32.0); CHLORIDE - SERUM 105 mmol/L (98-107); GLUCOSE 158 mg/dL (74-106); SODIUM 137 mmol/L (136-145); UREA NITROGEN 23 mg/dL (7-18); eGFR NON AFRICAN AMERICAN 78 mL/min (90-120)
[2020-04-14 08:00] VITALS: BP 191/74
--- NOTE | 2020-04-14 09:51 | NUR ---
REFERRRAL HAS BEEN FAXED TO [facility] FOR POSSIBLE ADMISSION. WILL CONTINUE TO FOLLOW WITH PATIENT.
[2020-04-14 11:01] LABS: LYMPHOCYTES 10 % (15-50); MONOCYTES 11 % (2-11); NEUTROPHILS 77 % (40-80); PLATELET ESTIMATE NORMAL
[2020-04-14 11:02] LABS: ANISOCYTOSIS OCC
--- NOTE | 2020-04-14 11:20 | NUR ---
IN THERAPY AT PRESENT. HAS BEEN TEARFUL THIS MORNING AND STILL TRYING TO CLIMB OUT OF BED. DR SCOTT SPOKE TO HIM AND HIS ABOUT HOSPICE REFERRAL. THEY BOTH AGREED IT WAS TIME.....HE REMAINS CONFUSED AND EASILY IRRITATED. F/C DRAINING CLOUDY URINE. HE FED HIMISELF FEW BITES OF BREAKFAST BUT NOT MUCH STATING HE WAS NOT HUNGRY. CALL LIGHT IN REACH BED STAYS IN LOWEST POSITION AND SIDE RAILS UP X3. DOOR TO ROOM STAYS OPEN FOR VISUAL ASSESSMENT. BED ALARM IS IN USE.
--- NOTE | 2020-04-14 12:31 | NUR ---
SITTING UP IN WC FOR LUNCH. HE REFUSED TO GET BACK IN BED. HE WAS TRYING TO PUSH HIS WC AND BEDSIDE TABLE TO "DR SCOTT'S OFFICE THEN TO MY HOUSE"....IS AGGITATED BUT AGREED TO EAT A FEW BITES OF LUNCH
[2020-04-14 16:07] VITALS: Ht 203.2 cm; Wt 104.3 kg
--- NOTE | 2020-04-14 16:41 | NUR ---
LAYING IN BED TALKING WITH SPEECH THERAPIST. SON IS VISITING ALSO. HE IS STILL VERY CONFUSED BUT SEEMS LESS ANXIOUS AND TEARFUL AT PRESENT.
--- NOTE | 2020-04-14 19:15 | NUR ---
PT RESTING WITH EYES CLOSED, AROUSES TO SOFT VERBAL STIMUALTION, VS OBTAINED PER GENETIC COUNSELLOR, ASSESSMENT PER FLOW SHEET, DEWEY CATH INTACT DRAINING DARK YELLOW URINE, PT DENIES NEEDS OR PAIN AT THIS TIME, FALL PRECAUTIONS IN PLACE
--- NOTE | 2020-04-14 21:11 | NUR ---
PT RESTING WITH EYES CLOSED, AROUSES TO SOFT VERBAL STIMULATIN, OBTAINED FSBS AND ADM 2100 MEDS PER MD ORDERS, SEE EMAR, INFORMED PT THAT I WILL BE BACK SHORTLY TO ADM INSULIN, PT VERBALIZES UNDERSTANDING
[2020-04-14 21:38] VITALS: BP 154/69
--- NOTE | 2020-04-14 22:13 | NUR ---
ADM INSULIN PER MD ORDERS, SEE EMAR, VERIFIED WITH RAMANDEEP NIELSON CHARGE NURSE, SNACK PROVIDED, FALL PRECAUTIONS IN PLACE
--- NOTE | 2020-04-14 23:00 | NUR ---
PT RESTING WITH EYES CLOSED, RESP QUIET, NO DISTRESS NOTED, LEFT UNDISTURBED AT THIS TIME, FALL PRECAUTIONS IN PLACE
--- NOTE | 2020-04-15 01:32 | NUR ---
PT RESTING WITH EYES CLOSED, RESP QUIET, NO DISTRESS NOTED, LEFT UNDISTURBED AT THIS TIME, FALL PRECAUTIONS IN PLACE
--- NOTE | 2020-04-15 03:43 | NUR ---
PT RESTING WITH EYES CLOSED, RESP QUIET, NO DISTRESS NOTED, LEFT UNDISTURBED AT THIS TIME, FALL PRECAUTIONS IN PLACE
--- NOTE | 2020-04-15 06:37 | NUR ---
PT RESTING WITH EYES CLOSED, AROUSES TO SOFT VERBAL STIMULATION, OBTAINED FSBS, ADM 0600 MEDS, DEWEY CATH EMPTIED, FALL PRECAUTIONS IN PLACE
--- NOTE | 2020-04-15 08:24 | NUR ---
PT IN BED IN ROOM, [facility] DELIVERED, NO NEEDS NOTED, FALL PRECAUTIONS IN PLACE, FLUIDS/CALL LIGHT WITHIN REACH
[2020-04-15 08:47] VITALS: BP 152/67
--- NOTE | 2020-04-15 08:54 | RHP ---
PATIENT: DEANA DUCKWORTH MEDICAL RECORD: [id number] ACCOUNT: [id number] LOCATION:[facility]1117 : [birth year] ADMISSION DATE: 04/11/20 REHABILITATION HISTORY AND PHYSICAL EXAMINATION POST ADMISSION PHYSICIAN EXAMINATION ADMITTING DIAGNOSIS: Acute displaced varus angled intertrochanteric fracture of the proximal right femur. HISTORY OF PRESENT ILLNESS: The patient is a 69-year-old gentleman who was a direct admit from the inpatient therapy receiving medical management due to disuse myopathy. He was admitted to the floor with abdominal flank pain due to kidney stones. The patient was also being treated for bilateral lower extremity cellulitis that failed outpatient therapy. The patient also has some delirium, constipation and nephrolithiasis. The patient has had a closed intertrochanteric fracture of the right hip. He had macrocytic anemia, peripheral vascular disease. The patient has some nonobstructing nephrolithiasis, which was new from the abdominal pelvic imaging that had been done previously. He has metastatic parotid disease. He had a fall on 04/03/2020 and suffered a femur fracture. He was taken to the OR on 04/04/2020 and is currently postop day #7 from an intramedullary nailing of the right hip. He has got urinary retention. He continues to have confusion postop, although he is pleasantly confused, been receiving PT and OT therapy during his stay. Deary was added for breakthrough pain. He is in need of medication adjustments at time, pain control. He has got decreased activity tolerance, decreased strength, proximal muscle weakness, balance deficits, decreased range of motion, gait disturbance. He has got dyspnea on exertion, he is a high fall risk and self-care deficits. These are all barriers to his discharge home safely. He is currently slowly improving and able to stand with mod assist times 2. He ambulates several steps up to his bed with use of rolling walker. He is mod to max assist for ADLs and require PT and OT and speech therapy throughout his stay to get him better. COMORBIDITIES: Include falls, disuse myopathy, constipation, nephrolithiasis, coronary artery disease, low albumin, musculoskeletal pain, dehydration, obstructive sleep apnea. PAST MEDICAL HISTORY: Significant for CVA, got a history of stents and angioplasty in the past, pressure ulcers, he has got a history of prostate cancer, parotid cancer, got a history of nausea and vomiting, difficulty breathing. PAST SURGICAL HISTORY: Includes knee, back, shoulder. He has had prostatectomy, bilateral cataracts. He has had knee surgery. He has also had facial surgery for the cancer. ALLERGIES: BACLOFEN, DILAUDID, PENICILLIN AND ADHESIVE TAPE. CURRENT MEDICATIONS: Include fentanyl patch 12 mcg every 72 hours, MiraLax 17 grams in 8 ounces of water daily, Pepcid 40 mg daily, he is on Lovenox 40 mg subQ daily, Cymbalta 60 mg daily, he is on B12 5000 mcg daily, he is on Santyl ointment, he is on Plavix 75 mg daily, Megace 400 mg b.i.d., he is on Lantus 20 units b.i.d., Mucinex 1200 mg b.i.d., Neurontin 300 mg at bedtime, Ainsley 60 mg b.i.d., Colace 100 mg b.i.d., Cardizem 60 mg b.i.d., Decadron 10 mg b.i.d., Tessalon Perles 100 mg t.i.d., budesonide 0.5 mg b.i.d., Brovana 15 mcg b.i.d., HISTORY AND PHYSICAL [id number] DEANA DUCKWORTH he is on a glucose replacement protocol, Percocet 10/325 one tab every 4 hours p.r.n., Zofran 4 mg every 6 hours p.r.n., Tylenol as needed and DuoNeb updrafts. HABITS: No alcohol or tobacco use. FAMILY HISTORY: Noncontributory. SOCIAL HISTORY: The patient hopes to return back home with his who is also limited in her activity level secondary to a pretty severe COPD. REVIEW OF SYSTEMS: GENERAL: Does complain of weakness and fatigue. HEENT: Denies cold, cough, or congestion. CARDIOVASCULAR: Denies any chest pain. PHYSICAL EXAMINATION: VITAL SIGNS: Stable, afebrile. GENERAL: A well-developed gentleman in no acute distress upon exam. HEENT: Normocephalic and atraumatic. Mucosa moist. NECK: Supple. He does have previous surgical scars to his neck region from his parotid cancer. LUNGS: Clear in upper mariee. No wheezing, rhonchi or rales. HEART: Regular rate and rhythm. No murmurs, rubs, or gallops. ABDOMEN: Soft, benign and nondistended. Positive bowel sounds times 4. EXTREMITIES: He does have some noted postoperative changes that showed no abnormal swelling at this time. NEUROLOGIC: He is somewhat confused. He does have noted diffuse weakness. LABORATORY DATA: Admit UA is negative. ASSESSMENT: This is a 69-year-old gentleman admitted to the rehab with a working diagnosis of acute displaced comminuted varus angulated fracture to his hip. The patient has potential to make improvement. We instituted the following multidisciplinary therapies including, but not limited to physical, occupational, respiratory, speech, nutritional services, prosthetics and orthotics. Given his complex medical condition and risks for more complications, rehabilitation services cannot be provided at a low level of care such a assisted facility. PLAN: 1. Admit to [facility] for inpatient therapy to include the following disciplines; A. Physical therapy to improve gait, all transfer skills and bed mobility to a modified independent level. B. Occupational therapy to improve activities of daily living. C. Case management to help with discharge planning and placement options. D. Nutrition to assist with nutritional needs. E. Rehabilitation nursing to assist in monitoring the patient's underlying medical conditions and to assist with any type bowel or bladder management. 2. The patient's current medication and medical care will be continued. 3. The patient will be placed on standard fall precautions. 4. We will keep his up-to-date with his current progress. 5. I will see again in the a.m. TRANSINT:[id number] Voice Confirmation ID: [id number] DOCUMENT ID: [id number] HISTORY AND PHYSICAL [id number] DEANA DUCKWORTH notes whether there has been none or any medical/functional change since admission: - No change since prescreen. CARLA attests patient continues to be appropriate for IRF: - Continues to be appropriate. MIGUELITO SCOTT MD at 0854 CC: [id number] DICTATION DATE: 04/12/20 0843 MEAT GRADING MACHINE OPERATOR: 04/12/20 1301 ADM IN [facility] [address] [place] [address]
--- NOTE | 2020-04-15 19:15 | NUR ---
PM ROUNDS MADE, PT RESTING WITH EYES CLOSED, RESP QUIET, NO DISTRESS NTED, LEFT UNDISTURBED AT THIS TIME, FALL PRECAUTIONS IN PLACE
--- NOTE | 2020-04-15 20:20 | NUR ---
PT RECEIVING RESP TX AT THIS TIME
[2020-04-15 21:50] VITALS: BP 131/67
--- NOTE | 2020-04-15 22:07 | NUR ---
PT RESTING WITH EYES CLOSED, AROUSES TO SOFT VERBAL STIMULATIN, ADM 2100 MEDS PER MD ORDERS, ASSESSMENT PER FLOW SHEET, INFORMED PT THAT I WILL BE BACK SHORTLY TO DO FSBS, PT VERBALIZES UNDERSTANDING
--- NOTE | 2020-04-15 22:35 | NUR ---
OBTAINED FSBS, ADM INSULIN PER MD ORDERS, SEE EMAR, PT DENIES NEEDS OR PAIN, FALL PRECAUTIONS IN PLACE
--- NOTE | 2020-04-15 23:04 | NUR ---
PT RESTING WITH EYES CLOSED, RESP QUIET, NO DISTRESS NOTED, LEFT UNDISTURBED AT THIS TIME, FALL PRECAUTIONS IN PLACE
--- NOTE | 2020-04-16 01:29 | NUR ---
PT RESTING WITH EYES CLOSED, RESP QUIET, NO DISTRESS NOTED, LEFT UNDISTURBED AT THIS TIME, FALL PRECAUTIONS IN PLACE
--- NOTE | 2020-04-16 03:32 | NUR ---
PT RESTING WITH EYES CLOSED, RESP QUIET, NO DISTRESS NOTED, LEFT UNDISTURBED AT THIS TIME, FALL PRECAUTIONS IN PLACE
--- NOTE | 2020-04-16 06:28 | NUR ---
PT RESTING WITH EYES CLOSED, AROUSES TO SOFT VERBAL STIMULATION, OBTAINED FSBS 169, DEWEY CATH EMPTIED, ADM 0700 MED PER MD ORDERS, SEE EMAR, FALL PRECAUTIONS IN PLACE
--- NOTE | 2020-04-16 06:35 | NUR ---
ADM INSULIN PER MD ORDERS, SEE EMAR, PT ROSALEE WELL
[2020-04-16 08:20] VITALS: BP 144/63
--- NOTE | 2020-04-16 13:42 | NUR ---
HAS BEEN UP IN WC ROLLING AROUND IN UNIT. FAMILY HERE VISITING. HE IS MORE CONFUSED TODAY. APPEARS MORE TIRED ALSO. F/C DRAINING CLOUDY URINE. MAX ASST WITH MOST TASKS.
--- NOTE | 2020-04-16 15:42 | NUR ---
Nutrition Follow-up: Diet: Diabetic PO intake: ~34% average x last 7 meals. Patient known to me from previous rehab admit. He previously liked and would drink Glucerna. Last BM: 04/14/20. WT: 230# (04/14/20) Meds noted: hernandez stroud, SSI. POC Glu 207(H) Skin: multiple stage II PU: L arm, R ankle, buttocks Recommend continue current diet. Will add Glucerna back to diet order. RD following.
--- NOTE | 2020-04-16 16:21 | NUR ---
PATIENT DISCHARGING HOME TODAY WITH FAMILY AND WILL ADMITT HOSPICE HOME CARE. PATIENT DISCHARGING VIA AMBULANCE. FAMILY AT BEDSIDE.
[2020-04-16] MEDS ORDERED: PLAVIX75 MG PO (17:06)
[2020-04-16] MEDS ORDERED: LOVENOX40 MG/0.4 SC (17:06)
[2020-04-16] MEDS ORDERED: COLACE100 MG PO (17:07)
[2020-04-16] MEDS ORDERED: PERCOCET 10-321 EAC1 PO (17:07)
--- NOTE | 2020-04-16 17:47 | NUR ---
DC HOME WITH HOSPICE. AMBULANCE TOOK PT HOME WITH ALL PERSONAL BELONGINGS. DTR AT BEDSIDE AT CT.
== END 2020-04-16 17:48 | disposition home health service (06) | DRG 560 ==
LOC: D.REHAB 13:12
PROVIDERS: ADMIT Emergency Medicine; ATTEND Emergency Medicine
DX: S72.141D Displaced intertrochanteric fracture of right femur, subsequent encounter for closed fracture with routine healing (principal); L03.116 Cellulitis of left lower limb; L03.115 Cellulitis of right lower limb; N17.9 Acute kidney failure, unspecified; D62 Acute posthemorrhagic anemia; W19.XXXD Unspecified fall, subsequent encounter; G72.89 Other specified myopathies; N20.0 Calculus of kidney; R33.9 Retention of urine, unspecified; R26.9 Unspecified abnormalities of gait and mobility; D53.9 Nutritional anemia, unspecified; I73.9 Peripheral vascular disease, unspecified; K59.00 Constipation, unspecified; I25.10 Atherosclerotic heart disease of native coronary artery without angina pectoris; G47.33 Obstructive sleep apnea (adult) (pediatric); E86.0 Dehydration; M79.18 Myalgia, other site; Z85.46 Personal history of malignant neoplasm of prostate; E11.9 Type 2 diabetes mellitus without complications; J44.9 Chronic obstructive pulmonary disease, unspecified; R41.0 Disorientation, unspecified